=== PATIENT | male | born 1935 | race Caucasian/White ===

== ENCOUNTER 2020-06-08 10:53 | Outpatient (REF) | payer MEDICARE, SELFPAY ==
[2020-06-08 13:46] LABS: MANUAL DIFF FLAG NO
[2020-06-08 14:09] LABS: Basophils Percent Auto 0.7 % (0-2); Eosinophils Absolute Auto 0.3 X10*3/uL (0.0-0.4); Eosinophils Percent Auto 4.6 % (0-4); Hemoglobin 12.4 g/dl (14.0-18.0); Imm Gran Abs Auto 0.02 X10*3/uL (0.00-0.03); Imm Gran Pct Auto 0.3 % (0.0-0.4); Lymphocytes Absolute Auto 1.2 X10*3/uL (1.2-4.9); Lymphocytes Percent Auto 20.2 % (20-40); Mean Corpuscular HGB Conc 30.2 g/dl (31.0-36.0); Mean Corpuscular Hemoglobin 29.5 pg (27.0-33.0); Mean Corpuscular Volume 97.4 fL (80-98); Mean Platelet Volume 9.9 fL (9.4-12.4); Monocytes Absolute Auto 0.5 X10*3/uL (0.1-1.2); Monocytes Percent Auto 8.1 % (2-11); Neutrophils Percent Auto 66.1 % (45-73); Platelet Count 168 X10*3/uL (160-400); Red Blood Count 4.21 X10*6/uL (4.60-5.80)
[2020-06-08 14:16] LABS: Anion Gap 11 (12-20); Blood Urea Nitrogen 25 mg/dL (9-16); Calcium 8.1 mg/dL (8.4-10.2); Chloride 105 mmol/L (96-108); Estimated Glomerular Filt Rate > 60; Glucose Random 142 mg/dL (60-115); Potassium 4.9 mmol/l (3.3-5.1); Sodium 142 mmol/L (135-145)
[2020-06-08 14:20] LABS: Carbon Dioxide 31 mmol/L (22-29)
[2020-06-08 14:40] LABS: Free T4 (Free Thyroxine) 0.93 ng/dL (0.71-1.85)
== END 2020-06-08 10:54 | disposition home or self-care (01) ==
LOC: HO.10HDL 10:53
PROVIDERS: Visit Provider Internal Medicine
DX: D64.9 Anemia, unspecified (principal); E03.9 Hypothyroidism, unspecified; I10 Essential (primary) hypertension
CPT/HCPCS: 36415; 80048; 84439; 84443; 85025

== ENCOUNTER 2020-08-18 09:40 | Outpatient (REF) | payer MEDICARE, SELFPAY ==
[2020-08-18 13:39] LABS: MANUAL DIFF FLAG NO
[2020-08-18 13:49] LABS: Basophils Absolute Auto 0.1 X10*3/uL (0.0-0.2); Basophils Percent Auto 0.8 % (0-2); Eosinophils Absolute Auto 0.8 X10*3/uL (0.0-0.4); Eosinophils Percent Auto 10.4 % (0-4); Hematocrit 40.6 % (42-52); Hemoglobin 12.6 g/dl (14.0-18.0); Imm Gran Abs Auto 0.03 X10*3/uL (0.00-0.03); Imm Gran Pct Auto 0.4 % (0.0-0.4); Lymphocytes Absolute Auto 1.3 X10*3/uL (1.2-4.9); Lymphocytes Percent Auto 17.3 % (20-40); Mean Corpuscular Hemoglobin 30.1 pg (27.0-33.0); Mean Corpuscular Volume 96.9 fL (80-98); Mean Platelet Volume 9.7 fL (9.4-12.4); Monocytes Absolute Auto 0.6 X10*3/uL (0.1-1.2); Monocytes Percent Auto 7.8 % (2-11); Neutrophils Absolute Auto 4.6 X10*3/uL (2.0-8.3); Neutrophils Percent Auto 63.3 % (45-73); Platelet Count 178 X10*3/uL (160-400); Red Blood Count 4.19 X10*6/uL (4.60-5.80); Red Cell Distribution Width 14.5 % (11.0-16.0); White Blood Count 7.3 X10*3/uL (4.8-10.8)
[2020-08-18 14:40] LABS: Alanine Aminotransferase 20 U/L (0-40); Albumin Level 3.8 g/dL (3.5-5.0); Alkaline Phosphatase 83 U/L (39-117); Anion Gap 12 (12-20); Aspartate Amino Transferase 21 U/L (5-37); Bilirubin Total 0.8 mg/dL (0.0-1.0); Blood Urea Nitrogen 31 mg/dL (9-16); Calcium 8.8 mg/dL (8.4-10.2); Carbon Dioxide 30 mmol/L (22-29); Chloride 105 mmol/L (96-108); Estimated Glomerular Filt Rate > 60; Glucose Random 112 mg/dL (60-115); Potassium 4.8 mmol/l (3.3-5.1); Sodium 142 mmol/L (135-145); Total Protein 6.2 g/dL (6.5-8.0)
[2020-08-18 14:53] LABS: Estimated Average Glucose 143 mg/dL; Hemoglobin A1c % 6.6 %
[2020-08-18 15:05] LABS: Creatinine Urine 113.74 mg/dL; Microalbum/Creatinine Ratio Ur 10.5 ug/mg cr
== END 2020-08-18 09:41 | disposition home or self-care (01) ==
LOC: HO.10HDL 09:40
PROVIDERS: Visit Provider Internal Medicine
DX: D50.9 Iron deficiency anemia, unspecified (principal); I25.10 Atherosclerotic heart disease of native coronary artery without angina pectoris; I10 Essential (primary) hypertension; E11.65 Type 2 diabetes mellitus with hyperglycemia; Z79.899 Other long term (current) drug therapy
CPT/HCPCS: 36415; 80053; 82043; 83036; 85025

== ENCOUNTER → 2020-09-08 10:10 | Outpatient (BNVA) | payer MEDICARE, SELFPAY | PROVIDERS: PCP Internal Medicine; Visit Provider Internal Medicine | DX: I48.0 Paroxysmal atrial fibrillation (principal); Z51.81 Encounter for therapeutic drug level monitoring; Z79.01 Long term (current) use of anticoagulants | CPT/HCPCS: 85610; 99211 ==

== ENCOUNTER → 2020-09-15 09:01 | Outpatient (BNVA) | payer MEDICARE, SELFPAY | PROVIDERS: PCP Internal Medicine; Visit Provider Internal Medicine | DX: I48.0 Paroxysmal atrial fibrillation (principal); Z51.81 Encounter for therapeutic drug level monitoring; Z79.01 Long term (current) use of anticoagulants | CPT/HCPCS: 85610; 99211 ==

== ENCOUNTER → 2020-09-23 09:14 | Outpatient (BNVA) | payer MEDICARE, SELFPAY | PROVIDERS: PCP Internal Medicine; Visit Provider Internal Medicine | DX: I48.0 Paroxysmal atrial fibrillation (principal); Z51.81 Encounter for therapeutic drug level monitoring; Z79.01 Long term (current) use of anticoagulants | CPT/HCPCS: 85610; 99211 ==

== ENCOUNTER → 2020-09-29 08:14 | Outpatient (BNVA) | payer MEDICARE, SELFPAY | PROVIDERS: PCP Internal Medicine; Visit Provider Internal Medicine | DX: I48.0 Paroxysmal atrial fibrillation (principal); Z51.81 Encounter for therapeutic drug level monitoring; Z79.01 Long term (current) use of anticoagulants | CPT/HCPCS: 85610; 99211 ==

== ENCOUNTER → 2020-10-06 08:07 | Outpatient (BNVA) | payer MEDICARE, SELFPAY | PROVIDERS: PCP Internal Medicine; Visit Provider Internal Medicine | DX: I48.0 Paroxysmal atrial fibrillation (principal); Z51.81 Encounter for therapeutic drug level monitoring; Z79.01 Long term (current) use of anticoagulants | CPT/HCPCS: 85610; 99211 ==

== ENCOUNTER → 2020-10-20 09:08 | Outpatient (BNVA) | payer MEDICARE, SELFPAY | PROVIDERS: PCP Internal Medicine; Visit Provider Internal Medicine | DX: I48.0 Paroxysmal atrial fibrillation (principal); Z51.81 Encounter for therapeutic drug level monitoring; Z79.01 Long term (current) use of anticoagulants | CPT/HCPCS: 85610; 99211 ==

== ENCOUNTER → 2020-10-23 09:15 | Outpatient (BNVA) | payer MEDICARE, SELFPAY | PROVIDERS: PCP Internal Medicine; Visit Provider Internal Medicine | DX: I48.0 Paroxysmal atrial fibrillation (principal); Z51.81 Encounter for therapeutic drug level monitoring; Z79.01 Long term (current) use of anticoagulants | CPT/HCPCS: 85610; 99211 ==

== ENCOUNTER → 2020-10-27 09:08 | Outpatient (BNVA) | payer MEDICARE, SELFPAY | PROVIDERS: PCP Internal Medicine; Visit Provider Internal Medicine | DX: I48.0 Paroxysmal atrial fibrillation (principal); Z51.81 Encounter for therapeutic drug level monitoring; Z79.01 Long term (current) use of anticoagulants | CPT/HCPCS: 85610; 99211 ==

== ENCOUNTER → 2020-11-10 09:14 | Outpatient (BNVA) | payer MEDICARE, SELFPAY | PROVIDERS: PCP Internal Medicine; Visit Provider Internal Medicine | DX: I48.0 Paroxysmal atrial fibrillation (principal); Z51.81 Encounter for therapeutic drug level monitoring; Z79.01 Long term (current) use of anticoagulants | CPT/HCPCS: 85610; 99211 ==

== ENCOUNTER → 2020-11-17 08:17 | Outpatient (BNVA) | payer MEDICARE, SELFPAY | PROVIDERS: PCP Internal Medicine; Visit Provider Internal Medicine | DX: I48.0 Paroxysmal atrial fibrillation (principal); Z79.01 Long term (current) use of anticoagulants; Z51.81 Encounter for therapeutic drug level monitoring | CPT/HCPCS: 85610; 99211 ==

== ENCOUNTER 2020-11-24 09:43 | Outpatient (REF) | payer MEDICARE, SELFPAY ==
[2020-11-24 10:21] LABS: Basophils Percent Auto 0.6 % (0-2); Eosinophils Absolute Auto 0.3 X10*3/uL (0.0-0.4); Hematocrit 38.8 % (42-52); Imm Gran Abs Auto 0.03 X10*3/uL (0.00-0.03); Imm Gran Pct Auto 0.4 % (0.0-0.4); Lymphocytes Absolute Auto 1.2 X10*3/uL (1.2-4.9); Lymphocytes Percent Auto 18.1 % (20-40); MANUAL DIFF FLAG NO; Mean Corpuscular HGB Conc 30.9 g/dl (31.0-36.0); Mean Platelet Volume 9.3 fL (9.4-12.4); Monocytes Absolute Auto 0.6 X10*3/uL (0.1-1.2); Monocytes Percent Auto 9.4 % (2-11); Neutrophils Absolute Auto 4.6 X10*3/uL (2.0-8.3); Neutrophils Percent Auto 67.5 % (45-73); Platelet Count 191 X10*3/uL (160-400); Red Cell Distribution Width 14.9 % (11.0-16.0); White Blood Count 6.8 X10*3/uL (4.8-10.8)
[2020-11-24 10:34] LABS: Alanine Aminotransferase 21 U/L (0-40); Albumin Level 3.8 g/dL (3.5-5.0); Alkaline Phosphatase 84 U/L (39-117); Anion Gap 12 (12-20); Aspartate Amino Transferase 21 U/L (5-37); Blood Urea Nitrogen 32 mg/dL (9-16); Calcium 8.7 mg/dL (8.4-10.2); Carbon Dioxide 28 mmol/L (22-29); Chloride 106 mmol/L (96-108); Estimated Glomerular Filt Rate > 60; Glucose Random 134 mg/dL (60-115); Potassium 5.1 mmol/L (3.3-5.1); Sodium 141 mmol/L (135-145); Total Protein 6.3 g/dL (6.5-8.0)
[2020-11-24 10:37] LABS: B Type Natriuretic Peptide 149 pg/mL (<100)
[2020-11-24 10:44] LABS: Estimated Average Glucose 140 mg/dL; Hemoglobin A1C 152.2448 umol/L; Hemoglobin A1c % 6.5 %
[2020-11-24 10:58] LABS: Free T4 (Free Thyroxine) 0.87 ng/dL (0.71-1.85)
== END 2020-11-24 09:44 | disposition home or self-care (01) ==
LOC: HO.10HDL 09:43
PROVIDERS: Visit Provider Internal Medicine
DX: E11.9 Type 2 diabetes mellitus without complications (principal); I25.10 Atherosclerotic heart disease of native coronary artery without angina pectoris; E78.00 Pure hypercholesterolemia, unspecified; E03.9 Hypothyroidism, unspecified; R06.00 Dyspnea, unspecified
CPT/HCPCS: 36415; 80053; 83036; 83880; 84439; 84443; 85025

== ENCOUNTER → 2020-12-01 08:06 | Outpatient (BNVA) | payer MEDICARE, SELFPAY | PROVIDERS: PCP Internal Medicine; Visit Provider Internal Medicine | DX: I48.0 Paroxysmal atrial fibrillation (principal); Z51.81 Encounter for therapeutic drug level monitoring; Z79.01 Long term (current) use of anticoagulants | CPT/HCPCS: 85610; 99211 ==

== ENCOUNTER → 2020-12-31 09:05 | Outpatient (BNVA) | payer MEDICARE, SELFPAY | PROVIDERS: PCP Internal Medicine; Visit Provider Internal Medicine | DX: Z45.018 Encounter for adjustment and management of other part of cardiac pacemaker (principal); I25.118 Atherosclerotic heart disease of native coronary artery with other forms of angina pectoris; I48.0 Paroxysmal atrial fibrillation; I35.0 Nonrheumatic aortic (valve) stenosis; I65.23 Occlusion and stenosis of bilateral carotid arteries; Z51.81 Encounter for therapeutic drug level monitoring; Z79.899 Other long term (current) drug therapy | CPT/HCPCS: 85610; 93005; 99202; 99211 ==

== ENCOUNTER 2021-01-06 10:17 | Outpatient (REF) | payer MEDICARE, SELFPAY ==
--- NOTE | ~2021-01-06 | US_ITS ---
EXAMINATION: US EXTRACRANIAL CAROTID DUPLEX, BILATERAL CLINICAL INFORMATION: Occlusion and stenosis of bilateral carotid arteries. COMPARISON: None TECHNIQUE: Real-time ultrasound and Doppler techniques (integrating B-mode 2-D vascular images, Doppler spectral analysis and color-flow Doppler imaging) were utilized to interrogate the extracranial carotid arteries, the vertebral arteries and proximal subclavian arteries bilaterally. The degree of stenosis is determined by criteria similar to NASCET. FINDINGS: Right Side: 1. There is extensive calcified, shadowing atherosclerotic plaque seen in the bifurcation/proximal ICA region. 2. The common carotid artery PSV proximally is 31.4 cm/s and distally 92.7 cm/s. 3. The proximal internal carotid artery velocities are 86.2 cm/s systolic and 14.7 cm/s diastolic. 4. The proximal external carotid artery PSV is 85.6 cm/s. 5. The vertebral artery shows antegrade flow. 6. The subclavian artery waveforms are normal. Left Side: 1. There is extensive calcified, shadowing atherosclerotic plaque seen in the bifurcation/proximal ICA region. 2. The common carotid artery PSV proximally is 63.3 cm/s and distally 88 cm/s. 3. The proximal internal carotid artery velocities are 174 cm/s systolic and 37.3 cm/s diastolic. 4. The proximal external carotid artery PSV is 123 cm/s. 5. The vertebral artery shows antegrade flow. 6. The subclavian artery waveforms are normal. US/US carotid duplex BI IMPRESSION: 1. RIGHT: Minimal, non-hemodynamically significant stenosis of the proximal right internal carotid artery corresponding to a 0-49% stenosis by velocity criteria. 2. LEFT: Moderate, hemodynamically significant stenosis of the proximal left internal carotid artery corresponding to a 50-79% stenosis by velocity criteria. Previously the left would have been categorized as 0-49% stenosis. 3. Bilateral waveforms are blunted, similar to the prior which may be suggestive of more central stenosis.
== END 2021-01-06 10:18 | disposition home or self-care (01) ==
LOC: HO.US 10:17
PROVIDERS: PCP Internal Medicine; Visit Provider Internal Medicine Cardiovascular Disease
DX: I65.23 Occlusion and stenosis of bilateral carotid arteries (principal)
CPT/HCPCS: 93880

== ENCOUNTER → 2021-01-11 07:44 | Outpatient (REF) | payer MEDICARE, SELFPAY ==
--- NOTE | 2021-01-11 07:43 | CA_ITS ---
Transthoracic Echocardiogram Patient (Last, First, Middle): Korey Wilder T Gender: Male Date of : 1935 Age: 85 Procedure Date: 01/11/2021 Procedure Type: Transthoracic Echocardiogram Location: OP Height: 182.88 cm Weight: 104.33 kg BSA: 2.26 m2 Heart Rate: bpm BP: 120 / 60 mmHg Director Clinical Pharmacology: LUCILA Referring MD: Hilario Dao MD Pen Maker: Hilario Dao MD Symptoms: I35.0 - Nonrheumatic aortic (valve) stenosis Study Quality: Fair/contrast ECG Rhythm: Ventriculary paced rhythm Conclusions: - 1. Normal LV systolic function with grade 2 diastolic dysfunction 2. Moderately dilated left atrium 3. Moderate aortic stenosis and mild aortic regurgitation 4. Severe mitral annular calcification 5. Moderately elevated right ventricular systolic pressure 6. No gross pericardial effusion Findings Procedure Information Contrast agent, definity, is being given per protocol without apparent complications. Left Ventricle Normal left ventricular cavity size. There is normal left ventricular wall thickness. The left ventricular systolic function is low normal. The visually estimated ejection fraction is between 50-55%. 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 Spectral Doppler is indicative of a pseudonormal filling pattern. E/E prime ratio is >15, consistent with elevated filling pressures. Evidence suggests grade II (moderate) diastolic dysfunction. Right Ventricle Normal right ventricular cavity size and systolic function. There is a pacemaker wire seen in the right ventricle. Atria The left atrium is moderately dilated. The right atrium is mildly dilated. A pacemaker wire is identified in the right atrium. Aortic Valve There is severe calcification of the aortic valve. There is moderate thickening of the aortic valve with reduced excursion. There is moderate aortic valve stenosis. The peak aortic gradient is 56 mmHg.The mean gradient is 32 mmHg. The aortic valve area is 1.28 cm2. There is mild aortic valve regurgitation. Mitral Valve There is mild anterior and severe posterior mitral leaflet thickening. There is severe mitral annular calcification. There is mild mitral valve regurgitation. There is no mitral valve stenosis. Pulmonic Valve The pulmonic valve was not well visualized. Tricuspid Valve Likely normal tricuspid valve structure and function. There is mild tricuspid valve regurgitation. Mildly elevated right atrial pressure. Moderate pulmonary hypertension is present. Great Vessels All visible segments of the aorta are normal in size. The pulmonary artery was not well visualized. Venous The inferior vena cava is mildly dilated and collapses greater than 50% with inspiration. Pericardium/Pleural There is no evidence of pericardial effusion. Prior Study Comparison No previous study in the last 5 years for comparison Measurements 2D Linear Measurements IVSd: 1.11 0.6-0.9/0.6-1.0 cm LVIDd: 5.08 3.9-5.3/4.2-5.9 cm LVIDd Index: 2.25 2.4-3.2/2.2-3.1 cm/m2 LVIDs: 3.07 2.0-3.6 cm LVPWd: 0.98 0.7-1.1 cm Ao Root: 3.80 2.1-3.5 cm LA Diam: 4.20 2.7-3.8/3.0-4.0 cm LAIDs Index: 1.86 1.5-2.3 cm/m2 LV Mass: 247.17 67-162/88-224 g LV Mass Index: 109.37 43-95/49-115 g/m2 LVOT Diam: 2.10 3.0+(-)1.3 cm Mitral Valve MV Pk E: 1.16 MV PK A: 0.56 MV Decel Time: 356.00 E/A: 2.10 E'Lateral: 6.20 E'Medial: 7.83 E/E' Med: 14.80 E/E' Lat: 18.70 PHT: 104.00 MVA PHT: 2.12 Decel [place]: 3.27 Aortic Valve AoV Pk Audi: 3.73 AoV Mn Audi: 2.70 AoV VTI: 0.95 AoV Pk Grad: 56.00 Aov Mn Grad: 32.00 DONOVAN Cont.VTI: 1.28 AI Pk Audi: 3.55 AI [place]: 1.91 LVOT LVOT Pk Audi: 1.28 LVOT Mn Audi: 0.95 LVOT VTI: 0.35 LVOT Pk Grad: 7.00 LVOT Mn Grad: 4.00 LVOT Diam: 2.10 LVOT Area: 3.46 Diastolic Function MV Pk E: 1.16 MV Pk A: 0.56 E/A: 2.10 E'Medial: 7.83 E/E' Med: 14.80 E' Laterial: 6.20 E/E' Lat: 18.70 Tricuspid Valve TR Pk Audi: 3.41 TR Pk Grad: 47.00 RA Press: 8.00 RVSP: 55.00 Great Vessels Aorta Ao Root-2D: 3.80 2.0-3.7 cm Ao Asc: 3.30 2.1-3.4 cm Ao Arch: 3.50 Updated in Other Vendor System with Status of Final Hilario Dao MD electronically signed on 01/12/2021 4:11:05 PM with status of Final
== END ==
LOC: HO.CARD 07:44
PROVIDERS: Visit Provider Internal Medicine Cardiovascular Disease
DX: I35.0 Nonrheumatic aortic (valve) stenosis (principal); I48.0 Paroxysmal atrial fibrillation; Z51.81 Encounter for therapeutic drug level monitoring; Z79.01 Long term (current) use of anticoagulants
CPT/HCPCS: 85610; 93306; 99211; Q9957

== ENCOUNTER → 2021-01-25 08:33 | Outpatient (BNVA) | payer MEDICARE, SELFPAY | PROVIDERS: PCP Internal Medicine; Visit Provider Internal Medicine | DX: I48.0 Paroxysmal atrial fibrillation (principal); Z51.81 Encounter for therapeutic drug level monitoring; Z79.01 Long term (current) use of anticoagulants | CPT/HCPCS: 85610; 99211 ==

== ENCOUNTER → 2021-02-09 13:06 | Outpatient (BNVA) | payer MEDICARE, SELFPAY | PROVIDERS: PCP Internal Medicine; Visit Provider Surgery Vascular Surgery | DX: I65.23 Occlusion and stenosis of bilateral carotid arteries (principal) | CPT/HCPCS: 99202 ==

== ENCOUNTER → 2021-02-10 09:51 | Outpatient (BNVA) | payer MEDICARE, SELFPAY | PROVIDERS: PCP Internal Medicine; Visit Provider Internal Medicine Cardiovascular Disease | DX: I35.0 Nonrheumatic aortic (valve) stenosis (principal); I20.8 Other forms of angina pectoris; I48.0 Paroxysmal atrial fibrillation; I49.5 Sick sinus syndrome; E11.9 Type 2 diabetes mellitus without complications; Z87.891 Personal history of nicotine dependence; Z95.0 Presence of cardiac pacemaker; Z98.890 Other specified postprocedural states; Z79.84 Long term (current) use of oral hypoglycemic drugs; Z79.899 Other long term (current) drug therapy | CPT/HCPCS: 93005; 99212 ==

== ENCOUNTER 2021-03-01 09:50 | Outpatient (REF) | payer MEDICARE, SELFPAY ==
[2021-03-01 13:16] LABS: MANUAL DIFF FLAG NO
[2021-03-01 13:35] LABS: Basophils Percent Auto 0.5 % (0-2); Eosinophils Absolute Auto 0.2 X10*3/uL (0.0-0.4); Hematocrit 39.2 % (42-52); Hemoglobin 12.1 g/dl (14.0-18.0); Imm Gran Abs Auto 0.03 X10*3/uL (0.00-0.03); Imm Gran Pct Auto 0.4 % (0.0-0.4); Lymphocytes Absolute Auto 1.2 X10*3/uL (1.2-4.9); Lymphocytes Percent Auto 16.5 % (20-40); Mean Corpuscular HGB Conc 30.9 g/dl (31.0-36.0); Mean Corpuscular Hemoglobin 29.7 pg (27.0-33.0); Mean Corpuscular Volume 96.1 fL (80-98); Mean Platelet Volume 9.8 fL (9.4-12.4); Monocytes Absolute Auto 0.7 X10*3/uL (0.1-1.2); Monocytes Percent Auto 9.2 % (2-11); Neutrophils Absolute Auto 5.2 X10*3/uL (2.0-8.3); Neutrophils Percent Auto 70.4 % (45-73); Platelet Count 163 X10*3/uL (160-400); Red Blood Count 4.08 X10*6/uL (4.60-5.80); Red Cell Distribution Width 15.2 % (11.0-16.0); White Blood Count 7.4 X10*3/uL (4.8-10.8)
[2021-03-01 13:45] LABS: Estimated Average Glucose 148 mg/dL; Hemoglobin A1c % 6.8 %
[2021-03-01 13:50] LABS: Alanine Aminotransferase 14 U/L (0-40); Albumin Level 3.8 g/dL (3.5-5.0); Alkaline Phosphatase 85 U/L (39-117); Anion Gap 13 (12-20); Aspartate Amino Transferase 17 U/L (5-37); Blood Urea Nitrogen 27 mg/dL (9-16); Calcium 8.8 mg/dL (8.4-10.2); Carbon Dioxide 29 mmol/L (22-29); Chloride 103 mmol/L (96-108); Estimated Glomerular Filt Rate > 60; Glucose Random 203 mg/dL (60-115); Potassium 5.1 mmol/L (3.3-5.1); Sodium 140 mmol/L (135-145); Total Protein 6.6 g/dL (6.5-8.0)
[2021-03-01 13:54] LABS: Creatinine Urine 88.26 mg/dL; Microalbum/Creatinine Ratio Ur 12.4 ug/mg cr
[2021-03-01 14:12] LABS: Free T4 (Free Thyroxine) 0.91 ng/dL (0.71-1.85); Thyroid Stimulating Hormone 2.46 uIU/mL (0.32-4.0)
== END 2021-03-01 09:51 | disposition home or self-care (01) ==
LOC: HO.10HDL 09:50
PROVIDERS: Visit Provider Internal Medicine
DX: I25.10 Atherosclerotic heart disease of native coronary artery without angina pectoris (principal); I48.0 Paroxysmal atrial fibrillation; E11.9 Type 2 diabetes mellitus without complications; E03.9 Hypothyroidism, unspecified
CPT/HCPCS: 36415; 80053; 82043; 83036; 84439; 84443; 85025

== ENCOUNTER 2021-03-26 09:10 | Outpatient (REF) | payer MEDICARE, SELFPAY ==
[2021-03-26 10:10] LABS: Influenza A PCR NEGATIVE (Negative); Influenza B PCR NEGATIVE (Negative); Resp Syncy Virus RNA Qual PCR NEGATIVE (Negative); SARS COV2 PCR INHOUSE NEGATIVE (Negative)
== END 2021-03-26 09:11 | disposition home or self-care (01) ==
LOC: HO.LNP 09:10
PROVIDERS: Visit Provider Internal Medicine
DX: Z20.822 Contact with and (suspected) exposure to COVID-19 (principal)
CPT/HCPCS: 0241U

== ENCOUNTER → 2021-06-15 15:16 | Outpatient (BNVA) | payer MEDICARE, SELFPAY | PROVIDERS: PCP Internal Medicine; Referring Provider Internal Medicine; Visit Provider Internal Medicine Cardiovascular Disease | DX: Z45.018 Encounter for adjustment and management of other part of cardiac pacemaker (principal); I25.10 Atherosclerotic heart disease of native coronary artery without angina pectoris; I48.0 Paroxysmal atrial fibrillation; I35.0 Nonrheumatic aortic (valve) stenosis; I20.9 Angina pectoris, unspecified | CPT/HCPCS: 93005; 99212 ==

== ENCOUNTER 2021-08-30 13:55 | Outpatient (REF) | payer MEDICARE, SELFPAY ==
[2021-08-03 08:04] VITALS: BP 98/42
[2021-08-20 06:39] VITALS: BP 104/52
--- NOTE | ~2021-08-30 | US_ITS ---
EXAMINATION: US EXTRACRANIAL CAROTID DUPLEX, BILATERAL CLINICAL INFORMATION: This is an 86-year-old male with history of occlusion/stenosis of bilateral carotid arteries. COMPARISON: Comparison is made to a previous carotid duplex ultrasound dated 01/06/2021 which demonstrated 0-49% right internal carotid artery stenosis and 50-79% left internal carotid artery stenosis. TECHNIQUE: Real-time ultrasound and Doppler techniques (integrating B-mode 2-D vascular images, Doppler spectral analysis and color-flow Doppler imaging) were utilized to interrogate the extracranial carotid arteries, the vertebral arteries and proximal subclavian arteries bilaterally. The degree of stenosis is determined by criteria similar to NASCET. FINDINGS: Right Side: 1. There is moderate atherosclerotic plaque seen in the bifurcation/proximal ICA region. 2. The common carotid artery PSV proximally is 35 cm/s and distally 79 cm/s. 3. The proximal internal carotid artery velocities are 224 cm/s systolic and 47 cm/s diastolic. 4. The proximal external carotid artery PSV is 103 cm/s. 5. The vertebral artery shows antegrade flow. 6. The subclavian artery waveforms are normal. Left Side: 1. There is minimal atherosclerotic plaque seen in the bifurcation/proximal ICA region. 2. The common carotid artery PSV proximally is 77 cm/s and distally 74 cm/s. 3. The proximal internal carotid artery velocities are 102 cm/s systolic and 24 cm/s diastolic. 4. The proximal external carotid artery PSV is 81 cm/s. 5. The vertebral artery shows antegrade flow. 6. The subclavian artery waveforms are normal. Arrhythmia was noted during the duplex portion of the examination. US/US carotid duplex BI IMPRESSION: 1. RIGHT: Moderate, hemodynamically significant stenosis of the proximal right internal carotid artery corresponding to a 50-79% stenosis by velocity criteria. On the previous study dated 01/06/2021 the right internal carotid artery stenosis was 0-49%. 2. LEFT: Minimal, non-hemodynamically significant stenosis of the proximal left internal carotid artery corresponding to a 0-49% stenosis by velocity criteria. On the previous study dated 01/06/2021 the left internal carotid artery stenosis was 50-79%.
== END 2021-08-30 13:56 | disposition home or self-care (01) ==
LOC: HO.US 13:55
PROVIDERS: PCP Internal Medicine; Visit Provider Surgery Vascular Surgery
DX: I65.23 Occlusion and stenosis of bilateral carotid arteries (principal)
CPT/HCPCS: 93880

== ENCOUNTER → 2021-09-02 10:34 | Outpatient (BNVA) | payer MEDICARE, SELFPAY ==
[2021-08-20 06:39] VITALS: BP 104/52
== END ==
PROVIDERS: PCP Internal Medicine; Visit Provider Surgery Vascular Surgery
DX: I65.23 Occlusion and stenosis of bilateral carotid arteries (principal); Z79.01 Long term (current) use of anticoagulants; Z79.899 Other long term (current) drug therapy
CPT/HCPCS: 99212

== ENCOUNTER → 2021-11-24 08:16 | Outpatient (REF) | payer MEDICARE, SELFPAY ==
[2021-08-20 06:39] VITALS: BP 104/52
--- NOTE | 2021-11-24 08:20 | CA_ITS ---
Transthoracic Echocardiogram Patient (Last, First, Middle): Korey Wilder T Gender: Male Date of : 1935 Age: 86 Procedure Date: 11/24/2021 Procedure Type: Transthoracic Echocardiogram Location: OP Height: 193.04 cm Weight: 104.33 kg BSA: 2.35 m2 Heart Rate: bpm BP: 122 / 80 mmHg Brake Linings Coater: Referring MD: Hilario Dao MD Solid Plasterer: Hilario Dao MD Symptoms: I35.0 - Nonrheumatic aortic (valve) stenosis Study Quality: Fair ECG Rhythm: Ventriculary paced rhythm Conclusions: - 1. Normal LV systolic function with at least grade 2 diastolic dysfunction next 2. Mildly dilated left atrium 3. Moderate to severe aortic stenosis with mild aortic regurgitation 4. Moderately elevated right ventricular systolic pressure 5. No gross pericardial effusion Findings Procedure Information The patient declines contrast. Left Ventricle Normal left ventricular size, thickness, and systolic function. The visually estimated ejection fraction is between 55-60%. Spectral Doppler is indicative of a pseudonormal filling pattern. Elevated left atrial and left ventricular end-diastolic pressures. E/E prime ratio is >15, consistent with elevated filling pressures. Evidence suggests grade II (moderate) diastolic dysfunction. Right Ventricle Mildly increased right ventricular cavity size. There is normal right ventricular systolic function. There is a pacemaker wire seen in the right ventricle. Atria The left atrium is mildly dilated. There is no evidence of interatrial shunt. The right atrium is normal in size. Aortic Valve There is moderate calcification of the aortic valve. There is moderate thickening of the aortic valve. There is moderate to severe aortic valve stenosis. The peak aortic gradient is 58 mmHg.The mean gradient is 34 mmHg. The aortic valve area is 1.04 cm2. There is mild aortic valve regurgitation. Mitral Valve There is mild anterior and moderate posterior mitral leaflet thickening. There is moderate mitral annular calcification. There is mild mitral valve regurgitation. There is no mitral valve stenosis. Pulmonic Valve The pulmonic valve was not well visualized. Tricuspid Valve Likely normal tricuspid valve structure and function. There is mild tricuspid valve regurgitation. Moderate pulmonary hypertension is present. Great Vessels All visible segments of the aorta are normal in size. The pulmonary artery was not well visualized. Venous The inferior vena cava is normal in size and collapses greater than 50% with inspiration. Pericardium/Pleural There is no evidence of pericardial effusion. Prior Study Comparison Changes noted compared to prior study dated: 01/11/2021. aortic stenosis is worse Measurements 2D Linear Measurements IVSd: 1.15 0.6-0.9/0.6-1.0 cm LVIDd: 5.29 3.9-5.3/4.2-5.9 cm LVIDd Index: 2.25 2.4-3.2/2.2-3.1 cm/m2 LVIDs: 3.10 2.0-3.6 cm LVPWd: 1.08 0.7-1.1 cm LA Diam: 4.70 2.7-3.8/3.0-4.0 cm LAIDs Index: 2.00 1.5-2.3 cm/m2 LV Mass: 288.31 67-162/88-224 g LV Mass Index: 122.69 43-95/49-115 g/m2 LVOT Diam: 2.10 3.0+(-)1.3 cm Mitral Valve E'Lateral: 6.42 E'Medial: 7.94 Aortic Valve AoV Pk Audi: 3.81 AoV Mn Audi: 2.81 AoV VTI: 0.97 AoV Pk Grad: 58.00 Aov Mn Grad: 34.00 DONOVAN Cont.VTI: 1.04 LVOT LVOT Pk Audi: 1.17 LVOT Mn Audi: 0.82 LVOT VTI: 0.29 LVOT Pk Grad: 5.00 LVOT Mn Grad: 3.00 LVOT Diam: 2.10 LVOT Area: 3.46 Diastolic Function E'Medial: 7.94 E' Laterial: 6.42 Right Ventricle TAPSE (mm): 21.40 TVS' Audi: 12.60 Tricuspid Valve TR Pk Audi: 3.33 TR Pk Grad: 44.00 RA Press: 3.00 RVSP: 47.00 Great Vessels Aorta Sinus of Valsalva: 3.47 2.0-3.5 cm Ao Asc: 3.30 2.1-3.4 cm Ao Arch: 3.40 Updated in Other Vendor System with Status of Final Hilario Dao MD electronically signed on 11/24/2021 12:59:14 PM with status of Final
== END ==
LOC: HO.CARD 08:16
PROVIDERS: Visit Provider Internal Medicine Cardiovascular Disease
DX: I35.0 Nonrheumatic aortic (valve) stenosis (principal)
CPT/HCPCS: 93306

== ENCOUNTER → 2021-12-21 10:34 | Outpatient (BNVA) | payer MEDICARE, SELFPAY ==
[2021-08-20 06:39] VITALS: BP 104/52
== END ==
PROVIDERS: PCP Internal Medicine; Referring Provider Internal Medicine; Visit Provider Internal Medicine Cardiovascular Disease
DX: I35.0 Nonrheumatic aortic (valve) stenosis (principal); I25.10 Atherosclerotic heart disease of native coronary artery without angina pectoris; I48.0 Paroxysmal atrial fibrillation
CPT/HCPCS: 99212

== ENCOUNTER 2022-02-25 10:36 | Outpatient (REF) | payer MEDICARE, SELFPAY ==
[2021-08-20 06:39] VITALS: BP 104/52
[2022-02-25 13:35] LABS: MANUAL DIFF FLAG NO
[2022-02-25 13:44] LABS: Appearance Urine CLEAR; Basophils Percent Auto 0.5 % (0-2); Color Urine YELLOW; Eosinophils Absolute Auto 0.2 X10*3/uL (0.0-0.4); Eosinophils Percent Auto 3.7 % (0-4); Glucose Urine UA NEG (NEG); Hematocrit 40.6 % (42.0-52.0); Hemoglobin 12.7 g/dl (14.0-18.0); Imm Gran Abs Auto 0.02 X10*3/uL (0.00-0.03); Imm Gran Pct Auto 0.3 % (0.0-0.4); Leukocyte Esterase Urine NEG (NEG); Lymphocytes Absolute Auto 1.3 X10*3/uL (1.2-4.9); Lymphocytes Percent Auto 21.3 % (20-40); Mean Corpuscular HGB Conc 31.3 g/dl (31.0-36.0); Mean Corpuscular Hemoglobin 30.2 pg (27.0-33.0); Mean Corpuscular Volume 96.4 fL (80.0-98.0); Mean Platelet Volume 9.8 fL (9.4-12.4); Monocytes Absolute Auto 0.6 X10*3/uL (0.1-1.2); Monocytes Percent Auto 9.7 % (2-11); Neutrophils Absolute Auto 3.9 x10*3/uL (2.0-8.3); Neutrophils Percent Auto 64.5 % (45-73); Nitrite Urine NEG (NEG); PH 5.5 (5.0-8.0); Platelet Count 141 X10*3/uL (160-400); Red Blood Count 4.21 X10*6/uL (4.60-5.80); Red Cell Distribution Width 14.5 % (11.0-16.0); Specific Gravity - Urine >= 1.030 (1.005-1.025); Urine Blood NEG (NEG); Urine Ketones NEG (NEG); Urine Protein NEG (NEG-TRACE)
[2022-02-25 14:01] LABS: Estimated Average Glucose 140 mg/dL; Hemoglobin A1c % 6.5 %
[2022-02-25 14:09] LABS: Creatinine Urine 127.04 mg/dL
[2022-02-25 14:12] LABS: Alanine Aminotransferase 14 U/L (0-40); Alkaline Phosphatase 81 U/L (39-117); Anion Gap 12 (12-20); Aspartate Amino Transferase 20 U/L (5-37); Bilirubin Total 0.9 mg/dL (0.0-1.0); Blood Urea Nitrogen 25 mg/dL (9-16); Calcium 8.9 mg/dL (8.4-10.2); Carbon Dioxide 27 mmol/L (22-29); Chloride 106 mmol/L (96-108); Cholesterol 145 mg/dL; Estimated Glomerular Filt Rate > 60; Glucose Fasting 126 mg/dL (60-99); HDL Cholesterol 45 mg/dL; Iron 63 mcg/dL (45-160); LDL Cholesterol Calculated 86 mg/dl; Percent Iron Saturation 25 % (15-50); Sodium 140 mmol/L (135-145); Total Iron Binding Capacity 254 mcg/dL (228-428); Total Protein 6.7 g/dL (6.5-8.0); Triglycerides 70 mg/dL; Unsaturated Iron Binding 191 ug/dL
[2022-02-25 14:26] LABS: Free T4 (Free Thyroxine) 0.93 ng/dL (0.71-1.85)
== END 2022-02-25 10:37 | disposition home or self-care (01) ==
LOC: HO.10HDL 10:36
PROVIDERS: Visit Provider Internal Medicine
DX: I25.10 Atherosclerotic heart disease of native coronary artery without angina pectoris (principal); I73.9 Peripheral vascular disease, unspecified; E78.00 Pure hypercholesterolemia, unspecified; E03.9 Hypothyroidism, unspecified; E11.9 Type 2 diabetes mellitus without complications; R35.1 Nocturia; Z12.5 Encounter for screening for malignant neoplasm of prostate
CPT/HCPCS: 36415; 80053; 80061; 81003; 82043; 83036; 83540; 84153; 84439; 84443; 85025

== ENCOUNTER → 2022-06-07 09:19 | Outpatient (REF) | payer MEDICARE, SELFPAY ==
[2021-08-20 06:39] VITALS: BP 104/52
--- NOTE | 2022-06-07 09:23 | CA_ITS ---
Transthoracic Echocardiogram Patient (Last, First, Middle): Korey Wilder T Gender: Male Date of : 1935 Age: 87 Procedure Date: 06/07/2022 Procedure Type: Transthoracic Echocardiogram Location: OP Height: 182.88 cm Weight: 102.06 kg BSA: 2.24 m2 Heart Rate: bpm BP: 120 / 54 mmHg Director Data Architecture: CARLOS Referring MD: Hilario Dao MD Symptoms: I35.0 - Nonrheumatic aortic (valve) stenosis Study Quality: Technically Difficult ECG Rhythm: Ventriculary paced rhythm Conclusions: - The left ventricular systolic function is normal. The visually estimated ejection fraction is between 60-65%. - Evidence suggests grade III (severe) diastolic dysfunction. - The left atrium is moderately dilated. - There is severe aortic valve stenosis. - There is severe mitral annular calcification. There is mild mitral valve regurgitation. There is mild mitral valve stenosis. - There is mild to moderate tricuspid valve regurgitation. - Mild pulmonary hypertension is present. Findings Procedure Information The patient declines contrast. Left Ventricle Normal left ventricular cavity size. There is mildly increased left ventricular wall thickness. The left ventricular systolic function is normal. The visually estimated ejection fraction is between 60-65%. There is no evidence of regional wall motion abnormalities. E/E prime ratio is >15, consistent with elevated filling pressures. Evidence suggests grade III (severe) diastolic dysfunction. Right Ventricle Normal right ventricular cavity size and systolic function. Atria The left atrium is moderately dilated. The right atrium is normal in size. Aortic Valve There is severe calcification of the aortic valve. There is severe aortic valve stenosis. The peak aortic gradient is 65 mmHg.The mean gradient is 42 mmHg. The aortic valve area is 1.03 cm2. There is mild aortic valve regurgitation. Mitral Valve There is severe mitral annular calcification. There is mild mitral valve regurgitation. There is mild mitral valve stenosis. Pulmonic Valve The pulmonic valve is likely normal. Tricuspid Valve Normal tricuspid valve structure. There is mild to moderate tricuspid valve regurgitation. The right ventricular systolic pressure is 48 mmHg. Mild pulmonary hypertension is present. Great Vessels The asc aorta is normal in size. Venous The inferior vena cava is mildly dilated and collapses less than 50% with inspiration. Pericardium/Pleural There is no evidence of pericardial effusion. Prior Study Comparison Changes noted compared to prior study dated: 11/24/2021. Progression of aortic valve stenosis. Measurements 2D Linear Measurements IVSd: 1.23 0.6-0.9/0.6-1.0 cm LVIDd: 5.23 3.9-5.3/4.2-5.9 cm LVIDd Index: 2.33 2.4-3.2/2.2-3.1 cm/m2 LVIDs: 2.84 2.0-3.6 cm LVPWd: 1.20 0.7-1.1 cm LA Diam: 4.50 2.7-3.8/3.0-4.0 cm LAIDs Index: 2.01 1.5-2.3 cm/m2 LV Mass: 318.66 67-162/88-224 g LV Mass Index: 142.26 43-95/49-115 g/m2 LVOT Diam: 2.10 3.0+(-)1.3 cm Mitral Valve MV VTI: 0.39 MV Pk Audi: 1.35 MV Mn Audi: 0.70 MV Pk Grad: 7.00 MV Mn Grad: 2.00 MV Pk E: 1.18 MV PK A: 0.33 MV Decel Time: 212.00 E/A: 3.50 E'Lateral: 6.64 E'Medial: 7.62 E/E' Med: 15.50 E/E' Lat: 17.80 PHT: 62.00 MVA PHT: 3.55 MVA Continuity: 2.81 Decel Rice: 5.54 Aortic Valve AoV Pk Audi: 4.03 AoV Mn Audi: 3.08 AoV VTI: 1.08 AoV Pk Grad: 65.00 Aov Mn Grad: 42.00 DONOVAN Cont.VTI: 1.03 AI Pk Audi: 3.45 AI Rice: 2.10 LVOT LVOT Pk Audi: 1.30 LVOT Mn Audi: 0.85 LVOT VTI: 0.32 LVOT Pk Grad: 7.00 LVOT Mn Grad: 4.00 LVOT Diam: 2.10 LVOT Area: 3.46 Diastolic Function MV Pk E: 1.18 MV Pk A: 0.33 E/A: 3.50 E'Medial: 7.62 E/E' Med: 15.50 E' Laterial: 6.64 E/E' Lat: 17.80 Right Ventricle TAPSE (mm): 21.40 TVS' Audi: 9.57 Tricuspid Valve TR Pk Audi: 3.17 TR Pk Grad: 40.00 RA Press: 8.00 RVSP: 48.00 Great Vessels Aorta Sinus of Valsalva: 3.81 2.0-3.[address] [place]: 2.74 1.7-3.4 cm Ao Asc: 3.70 2.1-3.4 cm Updated in Other Vendor System with Status of Final Obdulio Graham MD electronically signed on 06/08/2022 11:45:19 AM with status of Final
== END ==
LOC: HO.CARD 09:19
PROVIDERS: PCP Internal Medicine; Visit Provider Internal Medicine Cardiovascular Disease
DX: I35.0 Nonrheumatic aortic (valve) stenosis (principal)
CPT/HCPCS: 93306

== ENCOUNTER → 2022-07-05 10:54 | Outpatient (BNVA) | payer MEDICARE, SELFPAY ==
[2021-08-20 06:39] VITALS: BP 104/52
== END ==
PROVIDERS: PCP Internal Medicine; Referring Provider Internal Medicine; Visit Provider Internal Medicine Cardiovascular Disease
DX: Z45.018 Encounter for adjustment and management of other part of cardiac pacemaker (principal); I35.0 Nonrheumatic aortic (valve) stenosis; I48.0 Paroxysmal atrial fibrillation; I25.10 Atherosclerotic heart disease of native coronary artery without angina pectoris
CPT/HCPCS: 93005; 93280; 99212

== ENCOUNTER 2022-08-19 12:53 | Outpatient (REF) | payer MEDICARE, SELFPAY ==
[2021-08-20 06:39] VITALS: BP 104/52
[2022-08-19 13:38] LABS: MANUAL DIFF FLAG NO
[2022-08-19 13:42] LABS: Basophils Absolute Auto 0.1 X10*3/uL (0.0-0.2); Basophils Percent Auto 0.8 % (0-2); Eosinophils Absolute Auto 0.2 X10*3/uL (0.0-0.4); Hematocrit 40.5 % (42.0-52.0); Hemoglobin 12.9 g/dl (14.0-18.0); Imm Gran Abs Auto 0.03 X10*3/uL (0.00-0.03); Imm Gran Pct Auto 0.5 % (0.0-0.4); Lymphocytes Absolute Auto 1.4 X10*3/uL (1.2-4.9); Lymphocytes Percent Auto 21.7 % (20-40); Mean Corpuscular HGB Conc 31.9 g/dl (31.0-36.0); Mean Corpuscular Hemoglobin 31.6 pg (27.0-33.0); Mean Corpuscular Volume 99.3 fL (80.0-98.0); Mean Platelet Volume 9.7 fL (9.4-12.4); Monocytes Absolute Auto 0.5 X10*3/uL (0.1-1.2); Neutrophils Absolute Auto 4.4 x10*3/uL (2.0-8.3); Platelet Count 160 X10*3/uL (160-400); Red Blood Count 4.08 X10*6/uL (4.60-5.80); Red Cell Distribution Width 14.4 % (11.0-16.0); White Blood Count 6.6 X10*3/uL (4.8-10.8)
[2022-08-19 13:55] LABS: Estimated Average Glucose 131 mg/dL; Hemoglobin A1c % 6.2 %
[2022-08-19 14:10] LABS: Alanine Aminotransferase 20 U/L (0-40); Albumin Level 3.8 g/dL (3.5-5.0); Alkaline Phosphatase 86 U/L (39-117); Anion Gap 13 (12-20); Aspartate Amino Transferase 24 U/L (5-37); Blood Urea Nitrogen 27 mg/dL (9-16); Calcium 8.9 mg/dL (8.4-10.2); Carbon Dioxide 30 mmol/L (22-29); Chloride 104 mmol/L (96-108); Estimated Glomerular Filt Rate > 60; Glucose Random 166 mg/dL (60-115); Potassium 4.6 mmol/L (3.3-5.1); Sodium 142 mmol/L (135-145); Total Protein 6.4 g/dL (6.5-8.0)
[2022-08-19 14:16] LABS: Free T4 (Free Thyroxine) 1.09 ng/dL (0.71-1.85); Thyroid Stimulating Hormone 2.76 uIU/mL (0.32-4.0)
[2022-08-19 14:25] LABS: Creatinine Urine 117.23 mg/dL; Microalbum/Creatinine Ratio Ur 18.7 ug/mg cr
== END 2022-08-19 12:54 | disposition home or self-care (01) ==
LOC: HO.10HDL 12:53
PROVIDERS: Visit Provider Internal Medicine
DX: I48.0 Paroxysmal atrial fibrillation (principal); I73.9 Peripheral vascular disease, unspecified; E11.9 Type 2 diabetes mellitus without complications; I25.10 Atherosclerotic heart disease of native coronary artery without angina pectoris; E03.9 Hypothyroidism, unspecified
CPT/HCPCS: 36415; 80053; 82043; 83036; 84439; 84443; 85025

== ENCOUNTER 2022-08-25 10:00 | Outpatient (RCR) | payer MEDICARE, SELFPAY ==
[2021-08-20 06:39] VITALS: BP 104/52
--- NOTE | 2022-07-20 15:56 | MHC.PT.EP ---
[facility] [place] [facility] [place] [facility] [place] [facility] [address] [place] [address] [phone] F: [phone] F: [phone] F: [phone] F: [phone] Physical Therapy Plan of Care Date of Evaluation: Date of Surgery: N/A Diagnosis: sacroilitis, R SI joint dysfunction (RC) Assessment: pt is a 87 y/o male presenting to physical therapy w/ referring diagnosis of sacroilitis, R SI joint dysfunction. Impairments include pain, decreased range of motion, decreased strength, impaired functional mobility, impaired postural awareness, and altered ambulation mechanics. pt is a good candidate for skilled PT due to age, potential remediation of impairments, typyical disease/condition progression and prognosis, comorbidities, and motivation. pt would benefit from skilled PT intervention to provide a tailored strengthening and stretching exercise program, functional training, gait training, postural re-training, neuromuscular re-education, modalities as needed for pain, equipment safety demonstration. Frequency and Duration: The patient will be seen 2x/wk for 6 wks Short Term Goals: pt will be I w/ HEP to promote self-management of condition. pt will improve B hip abduction by 1 MMT grade to promote reduced trunk lean w/ gait and standing. pt will demo proper cane sequencing in appropriate hand to promote improved stability w/ ambulation. Halfway Goals: pt will report a statistically significant improvement in self-reported outcome measure to promote return to PLOF. pt will improve B hip flexion strength by 1 MMT grade to promote ease in navigating stairs to access laundry. Treatment Plan: Modalities to reduce pain, spasms and effusion. Manual therapy to restore motion and function. Therapeutic exercise to improve strength and flexibility. Neuromuscular re-education for posture and balance. Therapeutic activities to return to functional activities of daily living. Electronically signed by: Silvia Luong PT, DPT Please sign and return to therapist. Thank you for your referral.
--- NOTE | 2022-07-20 15:57 | MHC.PT.EP ---
[facility] [place] [facility] [place] [facility] [place] [facility] [address] [place] [address] [phone] F: [phone] F: [phone] F: [phone] F: [phone] Physical Therapy Plan of Care Date of Evaluation: Date of Surgery: N/A Diagnosis: sacroilitis, R SI joint dysfunction (RC) Assessment: pt is a 87 y/o male presenting to physical therapy w/ referring diagnosis of sacroilitis, R SI joint dysfunction. Impairments include pain, decreased range of motion, decreased strength, impaired functional mobility, impaired postural awareness, and altered ambulation mechanics. pt is a good candidate for skilled PT due to age, potential remediation of impairments, typyical disease/condition progression and prognosis, comorbidities, and motivation. pt would benefit from skilled PT intervention to provide a tailored strengthening and stretching exercise program, functional training, gait training, postural re-training, neuromuscular re-education, modalities as needed for pain, equipment safety demonstration. Frequency and Duration: The patient will be seen 2x/wk for 6 wks Short Term Goals: pt will be I w/ HEP to promote self-management of condition. pt will improve B hip abduction by 1 MMT grade to promote reduced trunk lean w/ gait and standing. pt will demo proper cane sequencing in appropriate hand to promote improved stability w/ ambulation. Custodial Goals: pt will report a statistically significant improvement in self-reported outcome measure to promote return to PLOF. pt will improve B hip flexion strength by 1 MMT grade to promote ease in navigating stairs to access laundry. Treatment Plan: Modalities to reduce pain, spasms and effusion. Manual therapy to restore motion and function. Therapeutic exercise to improve strength and flexibility. Neuromuscular re-education for posture and balance. Therapeutic activities to return to functional activities of daily living. Electronically signed by: Silvia Luong PT, DPT Please sign and return to therapist. Thank you for your referral.
--- NOTE | 2022-10-03 10:50 | MHC.PT.DC ---
[facility] [place] Office [place] Office [place] Office [address] [place] [address] [phone] F: [phone] F: [phone] F: [phone] F: [phone] Physical Therapy Discharge Report Diagnosis: sacroilitis, R SI joint dysfunction (RC) Date of Surgery: N/A Date of Evaluation: 07/20/22 Date of Discharge: 10/03/22 Treatments to Date: 10 Cancellations to Date: 0 No Shows to Date: 1 Discharge Status: Recommend MD Follow-up Discharge Summary: The patient was reporting mild improvement in his back pain symptoms; however, was put on hold as he was having a cardiac catheterization procedure done. 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 I followed up with him approximately a week and a half ago and he was still waiting for clearance. Unfortunately, I cannot keep his chart open any longer at this time. If he would like to return he can obtain a new script to resume treatment for his back. Electronically signed by: Silvia Luong PT, DPT Please sign and return to therapist. Thank you for your referral.
== END 2022-10-03 10:50 | disposition home or self-care (01) ==
LOC: HO.PT 10:00
PROVIDERS: PCP Internal Medicine; Visit Provider Internal Medicine
DX: M46.1 Sacroiliitis, not elsewhere classified (principal)
CPT/HCPCS: 97110; 97150; 97162; 97530

== ENCOUNTER → 2022-09-22 13:08 | Outpatient (BNVA) | payer MEDICARE, SELFPAY ==
[2021-08-20 06:39] VITALS: BP 104/52
== END ==
PROVIDERS: PCP Internal Medicine; Referring Provider Internal Medicine; Visit Provider Internal Medicine Cardiovascular Disease
DX: I35.0 Nonrheumatic aortic (valve) stenosis (principal); I48.0 Paroxysmal atrial fibrillation; I25.10 Atherosclerotic heart disease of native coronary artery without angina pectoris; Z79.01 Long term (current) use of anticoagulants; Z45.018 Encounter for adjustment and management of other part of cardiac pacemaker
CPT/HCPCS: 93280; 99212

== ENCOUNTER → 2022-09-23 09:22 | Outpatient (BNVA) | payer MEDICARE, SELFPAY ==
[2021-08-20 06:39] VITALS: BP 104/52
== END ==
PROVIDERS: PCP Internal Medicine; Visit Provider Surgery
DX: Z95.0 Presence of cardiac pacemaker (principal)
CPT/HCPCS: Q3014

== ENCOUNTER 2022-10-06 12:09 | Day surgery (SDC) | payer MEDICARE, SELFPAY ==
[2021-08-20 06:39] VITALS: BP 104/52
[2022-10-03 14:03] VITALS: BMI 31.3
--- NOTE | 2022-10-05 11:17 | P.CONAN_ITS ---
Documented by User: Bing Bertrand NP 10/05/22 11:21 HPI - Anesthesia Eval Consult details Narrative: 87yo M for Dual Pacemaker Generator Change pending TAVR in ~4-6 weeks Eliquis for PAF PMFSH Active Problems Active Problems: All Active Problems (Updated 02/09/21 @ 14:34 by Werner Larry MD) Bilateral carotid artery stenosis (Acute) Atherosclerosis of both carotid arteries (Acute) Aortic stenosis (Acute) Exertional angina (Acute) Paroxysmal atrial fibrillation (Acute) Diabetes mellitus (Acute) HTN (hypertension) (Acute) Cardiac pacemaker in situ (Acute) CAD (coronary artery disease) (Acute) Current use of anticoagulant therapy (Acute) Past Medical History Medical History (Updated 10/06/22 @ 09:21 by Hodan Main PA-C) Aortic stenosis Atherosclerosis of both carotid arteries CAD (coronary artery disease) Cardiac pacemaker in situ (~2013) Diabetes mellitus Exertional angina HTN (hypertension) Paroxysmal atrial fibrillation Sick sinus syndrome (~2013) Tubular adenoma of colon Family History Family History (Updated 10/06/22 @ 09:20 by Hodan Main PA-C) Father No problems noted. Mother Lung cancer Surgical History Surgical History (Updated 10/06/22 @ 09:19 by Hodan Main PA-C) History of appendectomy History of cardiac cath (~2017) History of cardioversion (~2014) History of cataract surgery History of colonoscopy (~2010) History of left hip replacement (~1998) History of melanoma excision (~2011) History of pacemaker (~2013) History of right hip replacement History of right-sided carotid endarterectomy (~2000) History of tonsillectomy Social History Social History (Updated 10/06/22 @ 09:16 by Hodan Main PA-C) Patient Tobacco Use Status: Former Tobacco user Quit Date: 2009 Tobacco use type: Cigarette Cigarette Packs Per Day: 1 Years Smoked: 50 Advance Directives: No Advance Directives Information Provided: Yes Meds Allergies Allergy/AdvReac Type Severity Reaction Status Date / Time No Known Allergies Allergy Verified 09/23/22 09:56 [No Known Allergies*] Home Medications Medication Instructions Recorded Confirmed Last Taken Type atorvastatin 40 mg tablet 40 mg PO DAILY 12/31/20 10/03/22 Unknown History glipizide 2.5 mg tablet, extended 2.5 mg PO DAILY 12/31/20 10/03/22 Unknown History release 24 hr levothyroxine 50 mcg tablet 50 mcg PO DAILY 12/31/20 10/03/22 Unknown History nitroglycerin 0.4 mg sublingual 0.4 mg sublingual TID PRN angina 12/31/20 09/23/22 Unknown History tablet ezetimibe 10 mg tablet (Zetia) 10 mg PO DAILY 07/05/22 09/23/22 Unknown History Exam Exam Date and Time: October 05, 2022 1117 Height,Weight and Vital Signs: Height 6 ft Weight 104.78 kg Pertinent Lab Results Pertinent Lab Results: Laboratory Tests 08/19/22 08/19/22 13:00 13:00 WBC 6.6 Hgb 12.9 L Hct 40.5 L Plt Count 160 Sodium 142 Potassium 4.6 Chloride 104 Carbon Dioxide 30 H BUN 27 H Creatinine 0.99 Narrative Narrative: Cardiac Device Check 09/2022 Details: Dual-chamber [employer] Chris pacemaker in place, programmed in DDDR at 60 beats per minute.? Battery life is at ISREAL.? Atrial ventricular sensing is adequate.? No ventricular arrhythmias noted.? Atrial ventricular pacing greater than 99% time.? Atrial pacing thresholds were reprogrammed to enhance safety.? Ventricular pacing thresholds are adequate and in our capture mode.? Pacing lead impedance is stable EKG 06/2022 Details: ? AV dual paced rhythm ECHO 06/2022 Conclusions: - The left ventricular systolic function is normal.? The visually estimated ejection fraction is between 60-65%. ? - Evidence suggests grade III (severe) diastolic dysfunction.? ? - The left atrium is moderately dilated. ? - There is severe aortic valve stenosis. ? - There is severe mitral annular calcification.? There is mild ? mitral valve regurgitation.? There is mild mitral valve stenosis. - There is mild to moderate tricuspid valve regurgitation. ? ? ? - Mild pulmonary hypertension is present.? Assessment and Plan Assessment Anesthesia Assessment: Chart Reviewed Documented by User: Alea Foster MD 10/06/22 13:12 [facility] Past Medical History Medical History (Updated 10/06/22 @ 09:21 by Hodan Main PA-C) Aortic stenosis Atherosclerosis of both carotid arteries CAD (coronary artery disease) Cardiac pacemaker in situ (~2013) Diabetes mellitus Exertional angina HTN (hypertension) Paroxysmal atrial fibrillation Sick sinus syndrome (~2013) Tubular adenoma of colon Family History Family History (Updated 10/06/22 @ 09:20 by Hodan Main PA-C) Father No problems noted. Mother Lung cancer Surgical History Surgical History (Updated 10/06/22 @ 09:19 by Hodan Main PA-C) History of appendectomy History of cardiac cath (~2017) History of cardioversion (~2014) History of cataract surgery History of colonoscopy (~2010) History of left hip replacement (~1998) History of melanoma excision (~2011) History of pacemaker (~2013) History of right hip replacement History of right-sided carotid endarterectomy (~2000) History of tonsillectomy Social History Social History (Updated 10/06/22 @ 09:16 by Hodan Main PA-C) Patient Tobacco Use Status: Former Tobacco user Quit Date: 2009 Tobacco use type: Cigarette Cigarette Packs Per Day: 1 Years Smoked: 50 Advance Directives: No Advance Directives Information Provided: Yes Meds Allergies Allergy/AdvReac Type Severity Reaction Status Date / Time No Known Allergies Allergy Verified 09/23/22 09:56 [No Known Allergies*] Home Medications Medication Instructions Recorded Confirmed Last Taken Type atorvastatin 40 mg tablet 40 mg PO DAILY 12/31/20 10/03/22 Unknown History glipizide 2.5 mg tablet, extended 2.5 mg PO DAILY 12/31/20 10/03/22 Unknown History release 24 hr levothyroxine 50 mcg tablet 50 mcg PO DAILY 12/31/20 10/03/22 Unknown History nitroglycerin 0.4 mg sublingual 0.4 mg sublingual TID PRN angina 12/31/20 09/23/22 Unknown History tablet ezetimibe 10 mg tablet (Zetia) 10 mg PO DAILY 07/05/22 09/23/22 Unknown History Exam Narrative Narrative: Cardiac Device Check 09/2022 Details: Dual-chamber [employer] Chris pacemaker in place, programmed in DDDR at 60 beats per minute.? Battery life is at ISREAL.? Atrial ventricular sensing is adequate.? No ventricular arrhythmias noted.? Atrial ventricular pacing greater than 99% time.? Atrial pacing thresholds were reprogrammed to enhance safety.? Ventricular pacing thresholds are adequate and in our capture mode.? Pacing lead impedance is stable EKG 06/2022 Details: ? AV dual paced rhythm ECHO 06/2022 Conclusions: - The left ventricular systolic function is normal.? The visually estimated ejection fraction is between 60-65%. ? - Evidence suggests grade III (severe) diastolic dysfunction.? ? - The left atrium is moderately dilated. ? - There is severe aortic valve stenosis. ? - There is severe mitral annular calcification.? There is mild ? mitral valve regurgitation.? There is mild mitral valve stenosis. - There is mild to moderate tricuspid valve regurgitation. ? - Mild pulmonary hypertension is present.?
--- NOTE | 2022-10-06 12:57 | MHC.SHP ---
Pre-Procedural Eval Section A Date of Service: 10/06/22 The History & Physical has been completed within 30 days and I have reviewed it.: Yes Section B Chief Complaint: Paroxysmal atrial fibrillation,aortic stenosis Allergies: Allergies Allergy/AdvReac Type Severity Reaction Status Date / Time No Known Allergies Allergy Verified 09/23/22 09:56 [No Known Allergies*] Plan I have reviewed the history and physical and performed a pertinent physical examination on my patient. No changes have occurred unless specified.I discussed the risks, benefits, and alternatives of a dual pacemaker generator change which he understood and agreed to proceed. Time Spent With Patient Time: Total time managing care of this patient today ____ minutes.
[2022-10-06 13:07] LABS: Glucose, Whole Blood 132 mg/dL (60-115)
[2022-10-06 13:24] VITALS: BP 133/59; PULSE 60; RESP 18; TEMP 36.4; O2SAT 97
[2022-10-06] MEDS: Lactated Ringers 1,000 ML 50 ML IVCONT (13:25)
--- NOTE | 2022-10-06 14:27 | P.OP_ITS ---
Operative Note Operative Note Date of Service: 10/06/22 Narrative: Preoperative diagnosis: Pacemaker end of life Postoperative diagnosis: Same Operation: Dual-chamber pacemaker generator change Surgeon: Denise Mendoza MD Anesthesia: Local with sedation Specimens: None EBL: Minimal Operative findings: The generator were removed was a [employer] Chris with serial number [id number]. Pacemaker lead parameters were in the atrial lead threshold of 0.5 at 0.4 milliseconds with an impedance of 440 Ohms and a P-wave of 1.4 mV. In the ventricular lead threshold of 1.25 volts at 0.4 milliseconds with an impedance of 840 Ohms. Patient tolerated the procedure well. Operation in detail: The patient was brought the operating room, placed supine on the operative table, anesthesia monitoring devices were placed, and the patient was gently sedated. The left infraclavicular area was then prepped and draped in a standard sterile fashion and a time-out was performed confirming the correct patient, site, and procedure. After injection of local anesthetic, a 3 cm incision was made directly over the old pacemaker generator which was palpable. This was carried down with combination of sharp dissection and minimal electrocautery to open up the capsule at the generator was within. The generator was were then removed from its pocket and the leads were taken out of the receptacles and placed directly into the new generator. These leads were then tested and were working approp riately. The pocket was then copiously irrigated with antibiotic solution and the excess wire and generator were then placed back into the pocket. The wound was then closed with a deep running 3-0 Vicryl suture followed by running 3-0 Vicryl suture and Dermabond glue on the skin. Patient tolerated the procedure well. Patient was then awoken from anesthesia and brought to the recovery room in s table condition.
[2022-10-06 14:31] VITALS: BP 107/51; PULSE 60; RESP 12; TEMP 36.2; O2SAT 96
[2022-10-06 14:46] VITALS: BP 137/57; PULSE 60; RESP 14; TEMP 36.4; O2SAT 96
== END 2022-10-06 15:31 | disposition home or self-care (01) ==
PROVIDERS: PCP Internal Medicine; Visit Provider Surgery
PROC: (CPT 33228; principal; 2022-10-06 13:30)
DX: Z45.010 Encounter for checking and testing of cardiac pacemaker pulse generator [battery] (principal); I35.0 Nonrheumatic aortic (valve) stenosis; I48.0 Paroxysmal atrial fibrillation; I49.5 Sick sinus syndrome; I10 Essential (primary) hypertension; E11.9 Type 2 diabetes mellitus without complications; Z79.84 Long term (current) use of oral hypoglycemic drugs; Z79.01 Long term (current) use of anticoagulants; Z79.899 Other long term (current) drug therapy; Z87.891 Personal history of nicotine dependence
CPT/HCPCS: 33228; 82947; C1785; J0690; J2370; J2405; J3370

== ENCOUNTER → 2022-10-21 09:04 | Outpatient (BNVA) | payer MEDICARE, SELFPAY ==
[2021-08-20 06:39] VITALS: BP 104/52
== END ==
PROVIDERS: PCP Internal Medicine; Visit Provider Surgery
DX: Z95.0 Presence of cardiac pacemaker (principal)

== ENCOUNTER 2022-11-11 14:17 | Outpatient (REF) | payer MEDICARE, SELFPAY ==
[2021-08-20 06:39] VITALS: BP 104/52
[2022-11-11 15:22] LABS: Anion Gap 14 (12-20); B Type Natriuretic Peptide 368 pg/mL (<100); Blood Urea Nitrogen 26 mg/dL (9-16); Carbon Dioxide 29 mmol/L (22-29); Chloride 106 mmol/L (96-108); Estimated Glomerular Filt Rate > 60; Glucose Random 148 mg/dL (60-115); Potassium 4.6 mmol/L (3.3-5.1); Sodium 144 mmol/L (135-145)
== END 2022-11-11 14:18 | disposition home or self-care (01) ==
LOC: HO.LAB 14:17
PROVIDERS: PCP Internal Medicine; Visit Provider Internal Medicine Cardiovascular Disease
DX: I35.0 Nonrheumatic aortic (valve) stenosis (principal)
CPT/HCPCS: 36415; 80048; 83880

== ENCOUNTER 2022-11-18 12:27 | Outpatient (REF) | payer MEDICARE, SELFPAY ==
[2021-08-20 06:39] VITALS: BP 104/52
[2022-11-18 14:20] LABS: B Type Natriuretic Peptide 294 pg/mL (<100)
[2022-11-18 14:31] LABS: Anion Gap 16 (12-20); Blood Urea Nitrogen 30 mg/dL (9-16); Calcium 9.5 mg/dL (8.4-10.2); Carbon Dioxide 30 mmol/L (22-29); Chloride 104 mmol/L (96-108); Estimated Glomerular Filt Rate 58; Glucose Random 132 mg/dL (60-115); Potassium 4.8 mmol/L (3.3-5.1); Sodium 145 mmol/L (135-145)
== END 2022-11-18 12:28 | disposition home or self-care (01) ==
LOC: HO.LAB 12:27
PROVIDERS: Nurse Practitioner Family; PCP Internal Medicine; Visit Provider Internal Medicine Cardiovascular Disease
DX: R60.9 Edema, unspecified (principal)
CPT/HCPCS: 36415; 80048; 83880

== ENCOUNTER → 2022-11-25 12:41 | Outpatient (REF) | payer MEDICARE, SELFPAY ==
[2021-08-20 06:39] VITALS: BP 104/52
--- NOTE | 2022-11-25 12:45 | CA_ITS ---
Transthoracic Echocardiogram Patient (Last, First, Middle): Korey Wilder T Gender: Male Date of : 1935 Age: 87 Procedure Date: 11/25/2022 Procedure Type: Transthoracic Echocardiogram Location: OP Height: 177.8 cm Weight: 99.79 kg BSA: 2.17 m2 Heart Rate: 60 bpm BP: 102 / 58 mmHg [employer]ire Vulcanizer: SB Referring MD: Hilario Dao MD Symptoms: Z95.2 - Presence of prosthetic heart valve Study Quality: Fair but adequate ECG Rhythm: Ventriculary paced rhythm Conclusions: - The left ventricular systolic function is normal. The calculated ejection fraction is 59% by biplane method. - Evidence suggests grade III (severe) diastolic dysfunction. - Moderate biatrial enlargement. - A bioprosthetic aortic valve is present. The prosthetic aortic valve appears to be functioning normally. - There is severe mitral annular calcification. - There is mild to moderate tricuspid valve regurgitation. Findings Procedure Information The patient declines contrast. Left Ventricle Normal left ventricular cavity size. The left ventricular systolic function is normal. The calculated ejection fraction is 59% by biplane method. There is no evidence of regional wall motion abnormalities. Evidence suggests grade III (severe) diastolic dysfunction. There is mild septal asymmetric hypertrophy. Right Ventricle Mildly increased right ventricular cavity size. There is normal right ventricular systolic function. Atria Moderate biatrial enlargement. Aortic Valve A bioprosthetic aortic valve is present. The prosthetic aortic valve appears to be functioning normally. The aortic valve was not well visualized. No significant regurgitation. Mitral Valve There is severe mitral annular calcification. There is trace mitral valve regurgitation. Possible mitral stenosis (not adequately assessed). Pulmonic Valve The pulmonic valve is likely normal. Tricuspid Valve Normal tricuspid valve structure. There is mild to moderate tricuspid valve regurgitation. There is no evidence of pulmonary hypertension. Great Vessels The asc aorta is normal in size. Venous The inferior vena cava is normal in size and collapses less than 50% with inspiration. Pericardium/Pleural There is a trivial pericardial effusion. Prior Study Comparison Changes noted compared to prior study dated: 06/07/2022. s/p AVR. Measurements 2D Linear Measurements IVSd: 1.27 0.6-0.9/0.6-1.0 cm LVIDd: 5.08 3.9-5.3/4.2-5.9 cm LVIDd Index: 2.34 2.4-3.2/2.2-3.1 cm/m2 LVIDs: 3.52 2.0-3.6 cm LVPWd: 0.99 0.7-1.1 cm LA Diam: 5.00 2.7-3.8/3.0-4.0 cm LAIDs Index: 2.30 1.5-2.3 cm/m2 LV Mass: 275.09 67-162/88-224 g LV Mass Index: 126.77 43-95/49-115 g/m2 LVOT Diam: 2.00 3.0+(-)1.3 cm 2D Systolic Function EF 4C: 62.50 >55% EF 2C: 59.60 >55% EF BiP: 58.60 >55% Mitral Valve MV Pk E: 1.21 MV PK A: 0.42 MV Decel Time: 264.00 E/A: 2.90 E'Lateral: 5.66 E'Medial: 7.18 E/E' Med: 16.90 E/E' Lat: 21.40 PHT: 77.00 MVA PHT: 2.86 Decel Pasco: 4.60 Aortic Valve AoV Pk Audi: 1.65 AoV Mn Audi: 1.16 AoV VTI: 0.32 AoV Pk Grad: 11.00 Aov Mn Grad: 7.00 DONOVAN Cont.VTI: 1.76 LVOT LVOT Pk Audi: 1.00 LVOT Mn Audi: 0.69 LVOT VTI: 0.18 LVOT Pk Grad: 4.00 LVOT Mn Grad: 3.00 LVOT Diam: 2.00 LVOT Area: 3.14 Diastolic Function MV Pk E: 1.21 MV Pk A: 0.42 E/A: 2.90 E'Medial: 7.18 E/E' Med: 16.90 E' Laterial: 5.66 E/E' Lat: 21.40 Right Ventricle TAPSE (mm): 20.30 TVS' Audi: 11.10 Tricuspid Valve TR Pk Audi: 2.27 TR Pk Grad: 21.00 RA Press: 8.00 RVSP: 29.00 Great Vessels Aorta Ao Asc: 3.90 2.1-3.4 cm Pulmonary Veins Pulm Vein S/D 0.80 Pulmonary Valve PV Pk Audi: 0.93 Peak PV Grad: 3.00 Updated in Other Vendor System with Status of Final Obdulio Graham MD electronically signed on 11/27/2022 1:15:58 PM with status of Final
== END ==
LOC: HO.CARD 12:41
PROVIDERS: PCP Internal Medicine; Visit Provider Internal Medicine Cardiovascular Disease
DX: Z95.2 Presence of prosthetic heart valve (principal)
CPT/HCPCS: 93306

== ENCOUNTER → 2022-12-01 09:39 | Outpatient (BNVA) | payer MEDICARE, SELFPAY ==
[2021-08-20 06:39] VITALS: BP 104/52
== END ==
PROVIDERS: PCP Internal Medicine; Referring Provider Internal Medicine; Visit Provider Internal Medicine Cardiovascular Disease
DX: Z45.018 Encounter for adjustment and management of other part of cardiac pacemaker (principal); I48.92 Unspecified atrial flutter; I25.10 Atherosclerotic heart disease of native coronary artery without angina pectoris; Z95.2 Presence of prosthetic heart valve
CPT/HCPCS: 93280; 99212

== ENCOUNTER → 2022-12-07 06:58 | Day surgery (SDC) | payer MEDICARE, SELFPAY ==
[2021-08-20 06:39] VITALS: BP 104/52
--- NOTE | 2022-12-06 08:39 | HO.ANESPROP2 ---
HPI - Anesthesia Eval Consult details Narrative: 87yo M for Cardioversion s/p TAVR 10/31/2022 (PCI with DEANNE prior) s/p Pacemaker Generator Change 10/2022 Eliquis for PAF PMFSH Active Problems Active Problems: All Active Problems (Updated 12/01/22 @ 10:09 by Hilario Dao MD) Stented coronary artery (Acute) S/P TAVR (transcatheter aortic valve replacement) (Acute) Atrial flutter (Acute) Cardiac pacemaker in situ (Acute ~2013) CAD (coronary artery disease) (Acute) Paroxysmal atrial fibrillation (Acute) Current use of anticoagulant therapy (Acute) Bilateral carotid artery stenosis (Acute) Atherosclerosis of both carotid arteries (Acute) HTN (hypertension) (Acute) Diabetes mellitus (Acute) Past Medical History Medical History (Updated 12/01/22 @ 10:09 by Hilario Dao MD) Aortic stenosis Atherosclerosis of both carotid arteries CAD (coronary artery disease) Cardiac pacemaker in situ (~2013) Diabetes mellitus Exertional angina HTN (hypertension) Paroxysmal atrial fibrillation Sick sinus syndrome (~2013) Tubular adenoma of colon Family History Family History Father No problems noted. Mother Lung cancer Surgical History Surgical History (Updated 12/01/22 @ 10:09 by Hilario Dao MD) History of appendectomy History of cardiac cath (~2017) History of cardioversion (~2014) History of cataract surgery History of colonoscopy (~2010) History of left hip replacement (~1998) History of melanoma excision (~2011) History of pacemaker (~2013) History of right hip replacement History of right-sided carotid endarterectomy (~2000) History of tonsillectomy Stented coronary artery Social History Social History Patient Tobacco Use Status: Former Tobacco user Quit Date: 2009 Tobacco use type: Cigarette Cigarette Packs Per Day: 1 Years Smoked: 50 Second Hand Smoke Exposure: No Meds Allergies Allergy/AdvReac Type Severity Reaction Status Date / Time No Known Allergies Allergy Verified 12/07/22 07:28 [No Known Allergies*] Home Medications Medication Instructions Recorded Confirmed Last Taken Type atorvastatin 40 mg tablet 40 mg PO DAILY 12/31/20 12/07/22 Unknown History glipizide 2.5 mg tablet, extended 2.5 mg PO DAILY 12/31/20 12/07/22 12/09/22 History release 24 hr levothyroxine 50 mcg tablet 50 mcg PO DAILY 12/31/20 12/07/22 12/09/22 History nitroglycerin 0.4 mg sublingual 0.4 mg sublingual TID PRN angina 12/31/20 12/07/22 Unknown History tablet ezetimibe 10 mg tablet (Zetia) 10 mg PO DAILY 07/05/22 12/07/22 Unknown History clopidogrel 75 mg tablet 75 mg PO DAILY 12/08/22 12/09/22 History dronedarone 400 mg tablet (Multaq) 400 mg PO BID 12/08/22 12/09/22 History Exam Exam Date and Time: December 06, 2022 0839 Pertinent Lab Results Pertinent Lab Results: Laboratory Tests 08/19/22 11/18/22 13:00 12:37 WBC 6.6 Hgb 12.9 L Hct 40.5 L Plt Count 160 Sodium 145 Potassium 4.8 Chloride 104 Carbon Dioxide 30 H BUN 30 H Creatinine 1.20 Narrative Narrative: ECHO 11/2022 Conclusions: - The left ventricular systolic function is normal.? The ? calculated ejection fraction is 59% by biplane method. ? - Evidence suggests grade III (severe) diastolic dysfunction.? ? - Moderate biatrial enlargement. ? - A bioprosthetic aortic valve is present.? The prosthetic aortic valve appears to be functioning normally.? - There is severe mitral annular calcification.? - There is mild to moderate tricuspid valve regurgitation. ? ? ? Assessment and Plan Assessment Anesthesia Assessment: Chart Reviewed
--- NOTE | 2022-12-06 18:54 | MHC.SHP ---
Pre-Procedural Eval Section A Date of Service: 12/06/22 The patient is an INPATIENT: No Changes since office visit: Yes Patient answered all questions; No Cold of Flu in the past 2 weeks, No New Medical Problems and No Changes in Medication The History & Physical has been completed within 30 days and I have reviewed it.: Yes Section B Chief Complaint: Other persistent atrial fibrillation Allergies: Allergies Allergy/AdvReac Type Severity Reaction Status Date / Time No Known Allergies Allergy Verified 12/01/22 09:47 [No Known Allergies*] Plan I have reviewed the history and physical and performed a pertinent physical examination on my patient. No changes have occurred unless specified. Time Spent With Patient Time: Total time managing care of this patient today ____ minutes.
[2022-12-07 07:25] VITALS: BMI 30.7
[2022-12-07 07:34] LABS: Glucose, Whole Blood 151 mg/dL (60-115)
[2022-12-07 07:36] VITALS: BP 135/63; PULSE 60; RESP 16; TEMP 36.2; O2SAT 100
[2022-12-07] MEDS: Lactated Ringers 1,000 ML 50 ML IVCONT (08:15)
--- NOTE | 2022-12-07 08:18 | PC.NURSE ---
PATIENT IN PREOP. WHEN RECONCILING MEDICATIONS, PATIENT UNAWARE THAT HE HAD TO START NEW MEDICATION (MULTAQ) PRESCRIBED BY DR. POLANCO DAYS AGO. DUE TO THIS, PER DR. POLANCO, CASE TO BE POSTPONED. THIS NURSE MADE PATIENT AWARE. IV REMOVED, TOLERATED WELL. PER DR. POLANCO, PATIENT TO START MULTAQ AND INCREASE LASIX TO BID STARTING TODAY. EVON ODEN OFFICE TO CALL PATIENT TO RESCHEDULE. THIS ALL WRITTEN DOWN FOR PATIENT BY THIS NURSE. PATIENT UNDERSTANDS PLAN. RIDE CALLED.
== END ==
PROVIDERS: PCP Internal Medicine; Visit Provider Internal Medicine Cardiovascular Disease
DX: I48.19 Other persistent atrial fibrillation (principal); Z53.8 Procedure and treatment not carried out for other reasons; E11.9 Type 2 diabetes mellitus without complications; Z79.01 Long term (current) use of anticoagulants; Z79.84 Long term (current) use of oral hypoglycemic drugs; Z95.2 Presence of prosthetic heart valve
CPT/HCPCS: 82947

== ENCOUNTER 2022-12-09 11:12 | Day surgery (SDC) | payer MEDICARE, SELFPAY ==
[2021-08-20 06:39] VITALS: BP 104/52
--- NOTE | 2022-12-08 11:56 | P.CONAN_ITS ---
Documented by User: Bing Bertrand NP 12/08/22 11:57 HPI - Anesthesia Eval Consult details Narrative: 87yo M for Cardioversion s/p? TAVR 10/31/2022 (PCI with DEANNE prior) s/p Pacemaker Generator Change 10/2022 Eliquis for PAF PMFSH Active Problems Active Problems: All Active Problems (Updated 12/01/22 @ 10:09 by Hilario Dao MD) Stented coronary artery (Acute) S/P TAVR (transcatheter aortic valve replacement) (Acute) Atrial flutter (Acute) Cardiac pacemaker in situ (Acute ~2013) CAD (coronary artery disease) (Acute) Paroxysmal atrial fibrillation (Acute) Current use of anticoagulant therapy (Acute) Bilateral carotid artery stenosis (Acute) Atherosclerosis of both carotid arteries (Acute) HTN (hypertension) (Acute) Diabetes mellitus (Acute) Past Medical History Medical History (Updated 12/01/22 @ 10:09 by Hilario Dao MD) Aortic stenosis Atherosclerosis of both carotid arteries CAD (coronary artery disease) Cardiac pacemaker in situ (~2013) Diabetes mellitus Exertional angina HTN (hypertension) Paroxysmal atrial fibrillation Sick sinus syndrome (~2013) Tubular adenoma of colon Family History Family History Father No problems noted. Mother Lung cancer Surgical History Surgical History (Updated 12/01/22 @ 10:09 by Hilario Dao MD) History of appendectomy History of cardiac cath (~2017) History of cardioversion (~2014) History of cataract surgery History of colonoscopy (~2010) History of left hip replacement (~1998) History of melanoma excision (~2011) History of pacemaker (~2013) History of right hip replacement History of right-sided carotid endarterectomy (~2000) History of tonsillectomy Stented coronary artery Social History Social History Patient Tobacco Use Status: Former Tobacco user Quit Date: 2009 Tobacco use type: Cigarette Cigarette Packs Per Day: 1 Years Smoked: 50 Second Hand Smoke Exposure: No Use of substances other than those prescribed or required for medical reasons: No Are you DNR?: No Advance Directives: No Advance Directives Information Provided: Yes Advance Directives on File: No Meds Allergies Allergy/AdvReac Type Severity Reaction Status Date / Time No Known Allergies Allergy Verified 12/07/22 07:28 [No Known Allergies*] Home Medications Medication Instructions Recorded Confirmed Last Taken Type atorvastatin 40 mg tablet 40 mg PO DAILY 12/31/20 12/07/22 Unknown History glipizide 2.5 mg tablet, extended 2.5 mg PO DAILY 12/31/20 12/07/22 12/09/22 History release 24 hr levothyroxine 50 mcg tablet 50 mcg PO DAILY 12/31/20 12/07/22 12/09/22 History nitroglycerin 0.4 mg sublingual 0.4 mg sublingual TID PRN angina 12/31/20 12/07/22 Unknown History tablet ezetimibe 10 mg tablet (Zetia) 10 mg PO DAILY 07/05/22 12/07/22 Unknown History clopidogrel 75 mg tablet 75 mg PO DAILY 12/08/22 12/09/22 History dronedarone 400 mg tablet (Multaq) 400 mg PO BID 12/08/22 12/09/22 History Exam Exam Date and Time: December 08, 2022 1156 Pertinent Lab Results Pertinent Lab Results: Laboratory Tests ? 08/19/22 11/18/22 ? 13:00 12:37 WBC ?6.6 ? Hgb ?12.9 L ? Hct ?40.5 L ? Plt Count ?160 ? Sodium ? ?145 Potassium ? ?4.8 Chloride ? ?104 Carbon Dioxide ? ?30 H BUN ? ?30 H Creatinine ? ?1.20 Narrative Narrative: Narrative Narrative: ECHO 11/2022 Conclusions: - The left ventricular systolic function is normal.? The calculated ejection fraction is 59% by biplane method. ? - Evidence suggests grade III (severe) diastolic dysfunction.? ? - Moderate biatrial enlargement. ? - A bioprosthetic aortic valve is present.? The prosthetic aortic valve appears to be functioning normally.? - There is severe mitral annular calcification.? - There is mild to moderate tricuspid valve regurgitation. ? Assessment and Plan Assessment Anesthesia Assessment: Chart Reviewed Documented by User: Cary Paul DO 12/09/22 13:54 [facility] Past Medical History Medical History (Updated 12/01/22 @ 10:09 by Hilario Dao MD) Aortic stenosis Atherosclerosis of both carotid arteries CAD (coronary artery disease) Cardiac pacemaker in situ (~2013) Diabetes mellitus Exertional angina HTN (hypertension) Paroxysmal atrial fibrillation Sick sinus syndrome (~2013) Tubular adenoma of colon Family History Family History Father No problems noted. Mother Lung cancer Family history of problems with anesthesia: No Surgical History Surgical History (Updated 12/01/22 @ 10:09 by Hilario Dao MD) History of appendectomy History of cardiac cath (~2017) History of cardioversion (~2014) History of cataract surgery History of colonoscopy (~2010) History of left hip replacement (~1998) History of melanoma excision (~2011) History of pacemaker (~2013) History of right hip replacement History of right-sided carotid endarterectomy (~2000) History of tonsillectomy Stented coronary artery History of Problems with Anesthesia: No Social History Social History Patient Tobacco Use Status: Former Tobacco user Quit Date: 2009 Tobacco use type: Cigarette Cigarette Packs Per Day: 1 Years Smoked: 50 Second Hand Smoke Exposure: No Use of substances other than those prescribed or required for medical reasons: No Are you DNR?: No Advance Directives: No Advance Directives Information Provided: Yes Advance Directives on File: No Meds Allergies Allergy/AdvReac Type Severity Reaction Status Date / Time No Known Allergies Allergy Verified 12/07/22 07:28 [No Known Allergies*] Home Medications Medication Instructions Recorded Confirmed Last Taken Type atorvastatin 40 mg tablet 40 mg PO DAILY 12/31/20 12/07/22 Unknown History glipizide 2.5 mg tablet, extended 2.5 mg PO DAILY 12/31/20 12/07/22 12/09/22 History release 24 hr levothyroxine 50 mcg tablet 50 mcg PO DAILY 12/31/20 12/07/22 12/09/22 History nitroglycerin 0.4 mg sublingual 0.4 mg sublingual TID PRN angina 12/31/20 12/07/22 Unknown History tablet ezetimibe 10 mg tablet (Zetia) 10 mg PO DAILY 07/05/22 12/07/22 Unknown History clopidogrel 75 mg tablet 75 mg PO DAILY 12/08/22 12/09/22 History dronedarone 400 mg tablet (Multaq) 400 mg PO BID 12/08/22 12/09/22 History Exam Exam Date and Time: December 09, 2022 1344 Airway Mallampati Class: III TM Dist: >3cm Neck ROM: Full Loose/Missing/Broken Teeth: No Heart: S1S2. Paced at 60 bpm on telemetry. Lungs: CTAB Assessment and Plan Assessment Anesthesia Assessment: Anesthesia Plan Discussed Final Anesthetic Review Family History of Problems with Anesthesia: No History of Problems with Anesthesia: No NPO: Yes ASA Class: III Final Preanesthetic Review: No Changes in Pt Med Stat, Meds/Allgs Chart Rev iewed, Consent Obtained/Reviewed and Anes Risks/Benef Reviewed Patient Risk: Intermediate Procedure Risk: Low Anesthetic Plan Anesthetic Plan: MAC: Disposition: Standard PACU
--- NOTE | 2022-12-09 11:51 | MHC.SHP ---
Pre-Procedural Eval Section A Date of Service: 12/09/22 The patient is an INPATIENT: No Changes since office visit: Yes Changes in Medication and Yes Patient answered all questions; No Cold of Flu in the past 2 weeks and No New Medical Problems The History & Physical has been completed within 30 days and I have reviewed it.: Yes Section B Chief Complaint: afib Allergies: Allergies Allergy/AdvReac Type Severity Reaction Status Date / Time No Known Allergies Allergy Verified 12/07/22 07:28 [No Known Allergies*] Plan I have reviewed the history and physical and performed a pertinent physical examination on my patient. No changes have occurred unless specified. Time Spent With Patient Time: Total time managing care of this patient today ____ minutes.
[2022-12-09 11:52] VITALS: BMI 30.7
[2022-12-09 11:58] VITALS: BP 128/62; PULSE 60; RESP 16; TEMP 36.2; O2SAT 98
[2022-12-09] MEDS: Lactated Ringers 1,000 ML 50 ML IVCONT (12:25)
--- NOTE | 2022-12-09 12:25 | PC.NURSE ---
repositioned two assist in bed and noticed a triangle right lower leg wound. patient states he cut it on a car door. cleaned right lower leg and applied xeroform and band aid. explained to patient to watch his wound due to his diabetes. patient aware.
[2022-12-09 12:26] LABS: Glucose, Whole Blood 111 mg/dL (60-115)
[2022-12-09 14:15] VITALS: BP 104/48; PULSE 60; RESP 15; TEMP 36.1; O2SAT 100
--- NOTE | 2022-12-09 14:17 | ECG_ITS ---
Test Reason : post cardioversion Blood Pressure : / mmHG Vent. Rate : 060 BPM Atrial Rate : 060 BPM P-R Int : 232 ms QRS Dur : 172 ms QT Int : 510 ms P-R-T Axes : 000 -83 098 degrees QTc Int : 510 ms AV dual-paced rhythm with prolonged AV conduction Abnormal ECG When compared with ECG of 27-MAR-2015 14:48, AV dual-paced rhythm has replaced Electronic atrial pacemaker Referred By: Hilario Dao Electronically Signed By:HILARIO DAO MD
--- NOTE | 2022-12-09 14:19 | HO.CARDIVERS ---
Cardioversion Procedure Note Cardioversion Date of Procedure: Today Ordering Provider: Myself Performing Provider: Myself Indication for Procedure: Persistent symptomatic atrial flutter Pre-Op Diagnosis: Same Post-Op Diagnosis: Sinus/atrial paced rhythm Performed with Transesophageal Echo: No History: See my office note Consent: Verbal and Written consent was obtained from the patient before starting and after confirming oral anticoagulation on Multaq use. The patient was made aware of the risk of synchronized cardioversion including benefits and alternatives Procedure: After consent obtained, cardioversion pads were attached anteroposterior configuration and the patient was sedated by the anesthesia team. Once adequate sedation achieved, patient was delivered 200 joules of biphasic synchronized energy in anteroposterior configuration Complications: None Impression: Successful establishment of AV synchrony Recommendations: 1. 12 lead EKG 2. Continue full oral anticoagulation Multaq 3. Pacemaker was interrogated with atrial ventricular pacing thresholds stable.
[2022-12-09 14:30] VITALS: BP 103/49; PULSE 60; RESP 16; TEMP 36.1; O2SAT 100
== END 2022-12-09 15:05 | disposition home or self-care (01) ==
PROVIDERS: PCP Internal Medicine; Visit Provider Internal Medicine Cardiovascular Disease
PROC: 5A2204Z Restoration of Cardiac Rhythm, Single (ICD-10-PCS; principal; 2022-12-09 13:30)
DX: I48.19 Other persistent atrial fibrillation (principal); I25.10 Atherosclerotic heart disease of native coronary artery without angina pectoris; I10 Essential (primary) hypertension; Z95.5 Presence of coronary angioplasty implant and graft; Z95.0 Presence of cardiac pacemaker; E11.9 Type 2 diabetes mellitus without complications; Z79.01 Long term (current) use of anticoagulants; Z79.84 Long term (current) use of oral hypoglycemic drugs; Z79.899 Other long term (current) drug therapy; Z87.891 Personal history of nicotine dependence; I49.5 Sick sinus syndrome
CPT/HCPCS: 82947; 92960; 93005

== ENCOUNTER 2023-01-10 09:07 | Outpatient (REF) | payer MEDICARE, SELFPAY ==
[2021-08-20 06:39] VITALS: BP 104/52
[2023-01-10 11:02] LABS: Anion Gap 14 (12-20); Blood Urea Nitrogen 53 mg/dL (9-16); Calcium 9.2 mg/dL (8.4-10.2); Carbon Dioxide 30 mmol/L (22-29); Chloride 103 mmol/L (96-108); Estimated Glomerular Filt Rate 36; Glucose Random 109 mg/dL (60-115); Potassium 4.8 mmol/L (3.3-5.1); Sodium 142 mmol/L (135-145)
[2023-01-10 11:06] LABS: B Type Natriuretic Peptide 533 pg/mL (<100)
== END 2023-01-10 09:08 | disposition home or self-care (01) ==
LOC: HO.LAB 09:07
PROVIDERS: PCP Internal Medicine; Visit Provider Internal Medicine Cardiovascular Disease
DX: I50.30 Unspecified diastolic (congestive) heart failure (principal); I48.0 Paroxysmal atrial fibrillation; I25.10 Atherosclerotic heart disease of native coronary artery without angina pectoris; Z95.0 Presence of cardiac pacemaker; Z95.2 Presence of prosthetic heart valve
CPT/HCPCS: 36415; 80048; 83880; 93005; 93280; 99212

== ENCOUNTER 2023-04-18 13:23 | Outpatient (AMB) | payer MEDICARE, SELFPAY ==
[2021-08-20 06:39] VITALS: BP 104/52
[2023-01-10 09:41] VITALS: BP 104/52
--- NOTE | 2023-04-18 13:25 | MHC.OFFVIS ---
Intake Vital Signs 04/18/23 13:26 Height 5 ft 11 in Weight 209 lb 7.026 oz BMI 29.2 BP 120/76 Blood Pressure Location Lt brachial Position Sitting Pulse 60 Intake Visit Reasons: 3 mth f/up w/ pacer ck @ ekg Intake Note: 3 month follow-up with [facility] and ekg check c/o being in the bathroom all night do the lasix he takes at night [employer] Required: No Allergies No Known Allergies [No Known Allergies*] Allergy (Verified 12/07/22 07:28) Medication List - Last Reconciled 04/18/23 by Hilario Dao MD apixaban (Eliquis) 5 mg PO BID 90 days atorvastatin 40 mg PO DAILY clopidogrel 75 mg PO DAILY ezetimibe (Zetia) 10 mg PO DAILY furosemide 20 mg PO BID glipizide ER 2.5 mg PO DAILY levothyroxine 50 mcg PO DAILY lisinopril 5 mg PO DAILY metoprolol tartrate 50 mg PO BID 90 days nitroglycerin 0.4 mg sublingual TID PRN HPI HPI Comments History of Present Illness Details Trey comes for follow-up. He said he is not doing well and having increasing symptoms of fatigue and shortness of breath. However his heart failure symptoms of leg edema and orthopnea PND have improved diuretic therapy. Comes for follow-up of his pacemaker check and noted to be in recurrent atrial flutter for the last few weeks. He denies any palpitations, lightheadedness, syncope. No recurrent anginal sounding chest discomfort. Denies any bleeding issues or neurologic events. Takes his oral anticoagulation religiously. [facility] Medical History Tubular adenoma of colon Atherosclerosis of both carotid arteries Aortic stenosis Exertional angina Paroxysmal atrial fibrillation Diabetes mellitus HTN (hypertension) Sick sinus syndrome (~2013) Cardiac pacemaker in situ (~2013) CAD (coronary artery disease) Surgical History Stented coronary artery History of cataract surgery History of tonsillectomy History of appendectomy History of right hip replacement History of cardioversion (~2014) History of left hip replacement (~1998) History of melanoma excision (~2011) History of colonoscopy (~2010) History of cardiac cath (~2017) History of right-sided carotid endarterectomy (~2000) History of pacemaker (~2013) Family History Father No problems noted. Mother Lung cancer Social History Patient Tobacco Use Status: Former Tobacco user Quit Date: 2009 Tobacco use type: Cigarette Cigarette Packs Per Day: 1 Years Smoked: 50 Second Hand Smoke Exposure: No Review of Systems Const Denies chills, Denies fatigue, Denies fever(s), Denies frequent falls, Denies weakness, Denies weight gain and Denies weight loss ENT Reports Normal hearing present and Denies dizziness Card Denies chest pain, Denies leg edema, Denies lightheadedness, Denies palpitations, Denies dyspnea, Denies dyspnea on exertion, Denies orthopnea and Denies other (loss of consciousness) Resp Denies cough, Denies dyspnea and Denies dyspnea on exertion GI Denies hematochezia and Denies change in stool character Musc Denies abnormal gait, Denies muscle weakness, Denies numbness, Denies radiating pain into limb and Denies tingling Neuro Reports Normal hearing present, Denies abnormal gait, Denies dizziness, Denies frequent falls, Denies numbness, Denies tingling and Denies weakness Endo Denies fatigue and Denies palpitations Physical Exam Vital Signs: Last Vital Signs Pulse 60 04/18/23 13:26 BP 120/76 04/18/23 13:26 BMI result Body Mass Index 29.2 Const General: cooperative, healthy appearing and comfortable Orientation/consciousness: oriented to person, oriented to place and oriented to time HEENT Head: Yes normal to inspection Neck Neck: Yes normal visual inspection Carotids: no bruits Chest Chest palpation & inspection: normal inspection of the chest Resp Effort & Inspection: normal respiratory effort and able to speak in complete sentences Auscultation: clear to auscultation bilaterally, no crackles, no rales, no rhonchi and no wheezes Cardio Rate: regular rate Rhythm: abnormal rhythm irregularly irregular Heart sounds: S1 normal heart sound present, S2 normal heart sound present, no click, no gallops and no murmurs Bruits: no carotid bruits Peripheral pulses: Peripheral pulses 2+ throughout GI Inspection: Yes normal to inspection Skin General skin exam: crusts, dry skin and ecchymosis Wounds: no wounds Hair: normal Neuro General: oriented to person, oriented to place and oriented to time Cranial nerves: Yes Normal hearing present Cognition (Neuro): normal cognition Motor exam (neuro): 5/5 motor strength present throughout Extrem Other: venous exam: No significant superficial varicosities or spider telangiectasias, minimal edema General: No clubbing, No cyanosis, Yes edema (1+) and Yes venous stasis dermatitis Psych Appearance: grossly normal Mental Status: mental status grossly normal Speech and movement: Normal speech and movement present Office Procedures Cardiac Device Check Cardiac Device Check Details: Dual-chamber [facility] pacemaker in place, reprogrammed from DDDR to DDIR due to persistent atrial flutter. Battery life is adequate. No other programming changes were made 25716-[id number] Cardiac Device Check, pacemaker dual lead Procedure code (CPT) selection complete EKG Details: EKG shows ventricular paced rhythm with underlying atrial flutter [id number], Complete Assessment & Plan Assessment & Plan (1) Atrial flutter: Code(s): I48.92 - Unspecified atrial flutter Plan: Persistent atrial flutter for few weeks. Increasing symptoms of fatigue and shortness of breath. This is not unusual given his diastolic dysfunction. Recommend loading with amiodarone 400 mg b.i.d. for 2 weeks followed by synchronized cardioversion. Risks, benefits were discussed. Continue full oral anticoagulation with Eliquis without interruption. (2) Cardiac pacemaker in situ: Onset Date: ~2013 Comment: ([facility] DCPP - placed 2013 for SSS; generator change 2022) Code(s): Z95.0 - Presence of cardiac pacemaker Plan: Cardiac pacemaker in-situ, reprogrammed. Will re program after synchronized cardioversion. (3) CAD (coronary artery disease): Comment: (08/2017 Cardiac Cath showed severe ostial OM1 disease, severe ostial RPDA disease - not candidate for intervention) Code(s): I25.10 - Atherosclerotic heart disease of [place] coronary artery without angina pectoris Plan: CAD with ostial RCA intervention in October. No symptoms of angina. Has distal diffuse disease in the OM as well as ostial RPDA. Continue aggressive risk factor modification. Will restart Plavix 75 mg daily. Continue ezetimibe as well as statin therapy to reduce LDL cholesterol less than 70 mg/dL. Blood pressure is currently well optimized. (4) S/P TAVR (transcatheter aortic valve replacement): Comment: Status post 29 mm Medtronic Evolut, 10/31/2022 Code(s): Z95.2 - Presence of prosthetic heart valve Plan: Status post transcatheter aortic valve replacement, working well clinically. Continue to monitor. Continue both Eliquis and Plavix. Plavix will be discontinued October of 2022. SBE prophylaxis as per ACC/[place] guidelines. (5) (HFpEF) heart failure with preserved ejection fraction: Code(s): I50.30 - Unspecified diastolic (congestive) heart failure Plan: Heart failure preserved ejection fraction, clinically euvolemic and well compensated current diuretic regimen. Advised to continue the same. Daily weight monitoring avoidance of salt loading was discussed. Additional diuretics as need be. Will pursue rhythm control approach to prevent recurrent heart failure and progressive heart failure syndrome. Management was discussed in details. Greater than 40 minutes was spent in managing his complex care. Orders: Orders Cardioversion 2 Weeks I48.92 - Unspecified atrial flutter Medications: New amiodarone Start after 15 days of loading 200 mg PO DAILY 30 tabs 5RF amiodarone 400 mg PO BID 30 tabs 0RF amiodarone 400 mg PO BID 30 tabs 0RF Changed From furosemide 20 mg PO DAILY 30 tabs 5RF To furosemide 20 mg PO BID Coding Level of Care Code Est Pt Level 5 (04173) Diagnoses Atrial flutter I48.92 Cardiac pacemaker in situ Z95.0 CAD (coronary artery disease) I25.10 S/P TAVR (transcatheter aortic valve replacement) Z95.2 (HFpEF) heart failure with preserved ejection fraction I50.30 CPT Codes Cardiac Device Check - Cardiac Device 2: [id number] Cardiac Device Check, pacemaker dual lead ([id number]) EKG - CPT: 13022-Dmnrgeqpabkyrpugd, Complete ([id number])
[2023-04-18 13:26] VITALS: BP 120/76; PULSE 60; BMI 29.2
== END 2023-04-18 13:53 | disposition home or self-care (01) ==
PROVIDERS: PCP Internal Medicine; Referring Provider Internal Medicine; Visit Provider Internal Medicine Cardiovascular Disease
DX: I48.92 Unspecified atrial flutter (principal); Z95.0 Presence of cardiac pacemaker; I25.10 Atherosclerotic heart disease of native coronary artery without angina pectoris; Z95.2 Presence of prosthetic heart valve; I50.30 Unspecified diastolic (congestive) heart failure
CPT/HCPCS: 93280; 99215

== ENCOUNTER → 2023-04-18 13:23 | Outpatient (BNVA) | payer MEDICARE, SELFPAY ==
[2023-01-10 09:41] VITALS: BP 104/52
== END ==
PROVIDERS: PCP Internal Medicine; Referring Provider Internal Medicine; Visit Provider Internal Medicine Cardiovascular Disease
DX: I48.92 Unspecified atrial flutter (principal); I25.10 Atherosclerotic heart disease of native coronary artery without angina pectoris; I50.30 Unspecified diastolic (congestive) heart failure; Z95.2 Presence of prosthetic heart valve; Z79.01 Long term (current) use of anticoagulants; Z79.899 Other long term (current) drug therapy; Z45.018 Encounter for adjustment and management of other part of cardiac pacemaker
CPT/HCPCS: 93005; 93280; 99212

== ENCOUNTER → 2023-05-01 23:59 | Outpatient (BNV) | payer MEDICARE, SELFPAY ==
[2023-01-10 09:41] VITALS: BP 104/52
--- NOTE | 2023-05-01 15:52 | MHC.OFFVIS ---
Intake Intake Visit Reasons: Remote device check- [facility] Allergies No Known Allergies [No Known Allergies*] Allergy (Verified 12/07/22 07:28) [facility] Medical History Tubular adenoma of colon Atherosclerosis of both carotid arteries Aortic stenosis Exertional angina Paroxysmal atrial fibrillation Diabetes mellitus HTN (hypertension) Sick sinus syndrome (~2013) Cardiac pacemaker in situ (~2013) CAD (coronary artery disease) Surgical History Stented coronary artery History of cataract surgery History of tonsillectomy History of appendectomy History of right hip replacement History of cardioversion (~2014) History of left hip replacement (~1998) History of melanoma excision (~2011) History of colonoscopy (~2010) History of cardiac cath (~2017) History of right-sided carotid endarterectomy (~2000) History of pacemaker (~2013) Family History Father No problems noted. Mother Lung cancer Social History Patient Tobacco Use Status: Former Tobacco user Quit Date: 2009 Tobacco use type: Cigarette Cigarette Packs Per Day: 1 Years Smoked: 50 Second Hand Smoke Exposure: No Office Procedures Cardiac Device Check Cardiac Device Check Details: Remote pacemaker report generated 05/01/2023. Pacemaker function is adequate. Persistent atrial fibrillation noted for 98% of the time. Will follow-up with patient regarding symptoms [id number] Cardiac Device Interrogation, pacemaker Procedure code (CPT) selection complete Coding Level of Care Code Procedure Only CPT Codes Cardiac Device Check - Cardiac Device 12: [id number] Cardiac Device Interrogation, pacemaker ([id number])
== END ==
PROVIDERS: PCP Internal Medicine; Visit Provider Internal Medicine Cardiovascular Disease
DX: I48.19 Other persistent atrial fibrillation (principal); Z95.0 Presence of cardiac pacemaker
CPT/HCPCS: 93294

== ENCOUNTER 2023-05-03 10:06 | Day surgery (SDC) | payer MEDICARE, SELFPAY ==
[2023-01-10 09:41] VITALS: BP 104/52
[2023-05-01 14:48] VITALS: BMI 29.1
[2023-05-03 10:31] VITALS: BP 101/45; PULSE 60; RESP 20; TEMP 36.8; O2SAT 96
[2023-05-03 10:50] LABS: Glucose, Whole Blood 119 mg/dL (60-115)
[2023-05-03] MEDS: Lactated Ringers 1,000 ML 50 ML IVCONT (11:16)
--- NOTE | 2023-05-03 11:25 | MHC.SHP ---
Pre-Procedural Eval Section A Date of Service: 05/03/23 The patient is an INPATIENT: No Changes since office visit: Yes Patient answered all questions; No Cold of Flu in the past 2 weeks, No New Medical Problems and No Changes in Medication The History & Physical has been completed within 30 days and I have reviewed it.: Yes Section B Chief Complaint: afib Allergies: Allergies Allergy/AdvReac Type Severity Reaction Status Date / Time No Known Allergies Allergy Verified 12/07/22 07:28 [No Known Allergies*] Plan I have reviewed the history and physical and performed a pertinent physical examination on my patient. No changes have occurred unless specified. Time Spent With Patient Time: Total time managing care of this patient today ____ minutes.
--- NOTE | 2023-05-03 11:26 | P.CONAN_ITS ---
HPI - Anesthesia Eval Consult details Narrative: Atrial Fibrillation [facility] Active Problems Active Problems: All Active Problems (Updated 01/10/23 @ 09:40 by Hilario Dao MD) (HFpEF) heart failure with preserved ejection fraction (Acute) Stented coronary artery (Acute) S/P TAVR (transcatheter aortic valve replacement) (Acute) Atrial flutter (Acute) Cardiac pacemaker in situ (Acute ~2013) CAD (coronary artery disease) (Acute) Paroxysmal atrial fibrillation (Acute) Current use of anticoagulant therapy (Acute) Bilateral carotid artery stenosis (Acute) Atherosclerosis of both carotid arteries (Acute) HTN (hypertension) (Acute) Diabetes mellitus (Acute) Past Medical History Medical History Tubular adenoma of colon Atherosclerosis of both carotid arteries Aortic stenosis Exertional angina Paroxysmal atrial fibrillation Diabetes mellitus HTN (hypertension) Sick sinus syndrome (~2013) Cardiac pacemaker in situ (~2013) CAD (coronary artery disease) Family History Family History Father No problems noted. Mother Lung cancer Family history of problems with anesthesia: No Surgical History Surgical History Stented coronary artery History of cataract surgery History of tonsillectomy History of appendectomy History of right hip replacement History of cardioversion (~2014) History of left hip replacement (~1998) History of melanoma excision (~2011) History of colonoscopy (~2010) History of cardiac cath (~2017) History of right-sided carotid endarterectomy (~2000) History of pacemaker (~2013) History of Problems with Anesthesia: No Social History Social History Patient Tobacco Use Status: Former Tobacco user Quit Date: 2009 Tobacco use type: Cigarette Cigarette Packs Per Day: 1 Years Smoked: 50 Second Hand Smoke Exposure: No Are you DNR?: No Advance Directives: No Advance Directives Information Provided: Yes Meds Allergies Allergy/AdvReac Type Severity Reaction Status Date / Time No Known Allergies Allergy Verified 12/07/22 07:28 [No Known Allergies*] Active Medications: Current Medications Lactated Ringer's (Lr) 1,000 mls @ 50 mls/hr IVCONT .Q20H ERIN Last Admin: 05/03/23 11:16 Dose: 50 mls/hr Home Medications Medication Instructions Recorded Confirmed Last Taken Type atorvastatin 40 mg tablet 40 mg PO DAILY 12/31/20 05/01/23 05/03/23 History glipizide 2.5 mg tablet, extended 2.5 mg PO DAILY 12/31/20 05/01/23 05/03/23 History release 24 hr nitroglycerin 0.4 mg sublingual 0.4 mg sublingual TID PRN angina 12/31/20 05/01/23 03/01/22 History tablet ezetimibe 10 mg tablet (Zetia) 10 mg PO DAILY 07/05/22 05/01/23 05/03/23 History levothyroxine 50 mcg tablet 50 mcg PO DAILY 01/10/23 05/01/23 05/03/23 History lisinopril 5 mg tablet 5 mg PO DAILY 04/18/23 05/01/23 05/03/23 History Exam Exam Date and Time: May 03, 2023 112 Height,Weight and Vital Signs: Height 5 ft 11 in Weight 94.801 kg Last Vital Signs Temp 98.3 F 05/03/23 10:31 Pulse 60 05/03/23 10:31 Resp 20 05/03/23 10:31 BP 101/45 L 05/03/23 10:31 Pulse Ox 96 05/03/23 10:31 O2 Del Method Room Air 05/03/23 10:31 Pertinent Lab Results Pertinent Lab Results: Laboratory Tests 05/03/23 10:46 POC Glucose 119 H Airway Mallampati Class: II TM Dist: >3cm Neck ROM: Full Loose/Missing/Broken Teeth: No Heart: irreg irregular s1s2 Lungs: cta b/l Assessment and Plan Assessment Anesthesia Assessment: Anesthesia Plan Discussed and Chart Reviewed Final Anesthetic Review Family History of Problems with Anesthesia: No History of Problems with Anesthesia: No NPO: Yes ASA Class: III Final Preanesthetic Review: No Changes in Pt Med Stat, Meds/Allgs Chart Reviewed, Consent Obtained/Reviewed and Anes Risks/Benef Reviewed Patient Risk: Intermediate Procedure Risk: Intermediate Assessment/Block/Sedation in SS: Assess/Block/Sedation-SS Anesthetic Plan Anesthetic Plan: GA and Agree w/ Assess. and Plan Disposition: Standard PACU
[2023-05-03 12:51] VITALS: BP 116/57; PULSE 71; RESP 15; TEMP 36.3; O2SAT 100
--- NOTE | 2023-05-03 12:51 | ECG_ITS ---
Test Reason : s/p cardioversion Blood Pressure : / mmHG Vent. Rate : 070 BPM Atrial Rate : 070 BPM P-R Int : 232 ms QRS Dur : 184 ms QT Int : 512 ms P-R-T Axes : 000 -86 092 degrees QTc Int : 552 ms AV dual-paced rhythm with prolonged AV conduction Abnormal ECG When compared with ECG of 09-DEC-2022 14:25, Vent. rate has increased BY 10 BPM Referred By: Hilario Dao Electronically Signed By:MARILU MIRZA
[2023-05-03 12:56] VITALS: BP 110/55; PULSE 70; RESP 17; O2SAT 99
--- NOTE | 2023-05-03 12:56 | HO.CARDIVERS ---
Cardioversion Procedure Note Cardioversion Date of Procedure: Today Ordering Provider: Myself Performing Provider: Myself Indication for Procedure: Persistent recurrent symptomatic atrial fibrillation/flutter Pre-Op Diagnosis: Same Post-Op Diagnosis: Atrial paced rhythm Performed with Transesophageal Echo: No History: See my office note Consent: Verbal and Written consent was obtained from the patient before starting and after confirming oral anticoagulation use and amiodarone use. The patient was made aware of the risk of synchronized cardioversion including benefits and alternatives Procedure: After consent obtained, cardioversion pads were attached in anteroposterior configuration and the patient was sedated by the anesthesia team. Once adequate sedation achieved, patient was delivered 200 joules of biphasic synchronized energy in anteroposterior configuration. Pacemaker was then interval gated with noted dual AV paced rhythm. Atrial sensing had improved. Atrial pacing thresholds adequate and reprogrammed. Mode was changed from DDIR at 60 beats per minute to DDDR at 70 beats per minute. Lead impedances were stable Complications: None Impression: Successful conversion to dual AV paced rhythm with establishment of AV synchrony Recommendations: 1. 12 lead EKG 2. Switch amiodarone to 200 mg daily and continue full oral anticoagulation 3. Follow up in the office in 4 weeks
[2023-05-03 13:01] VITALS: BP 103/61; PULSE 70; RESP 14; O2SAT 99
[2023-05-03 13:06] VITALS: BP 123/59; PULSE 70; RESP 15; O2SAT 100
[2023-05-03 13:21] VITALS: BP 130/64; PULSE 70; RESP 14; TEMP 36.4; O2SAT 100
== END 2023-05-03 14:52 | disposition home or self-care (01) ==
PROVIDERS: PCP Internal Medicine; Visit Provider Internal Medicine Cardiovascular Disease
PROC: 5A2204Z Restoration of Cardiac Rhythm, Single (ICD-10-PCS; principal; 2023-05-03 12:10)
DX: I48.19 Other persistent atrial fibrillation (principal); I48.92 Unspecified atrial flutter; Z79.01 Long term (current) use of anticoagulants; I50.30 Unspecified diastolic (congestive) heart failure; I25.10 Atherosclerotic heart disease of native coronary artery without angina pectoris; I10 Essential (primary) hypertension; Z95.5 Presence of coronary angioplasty implant and graft; Z87.891 Personal history of nicotine dependence; Z95.0 Presence of cardiac pacemaker; I49.5 Sick sinus syndrome; Z95.2 Presence of prosthetic heart valve; E11.9 Type 2 diabetes mellitus without complications; Z79.899 Other long term (current) drug therapy
CPT/HCPCS: 82947; 92960; 93005

== ENCOUNTER → 2023-05-03 10:06 | Outpatient (BNV) | payer MEDICARE, SELFPAY ==
[2023-01-10 09:41] VITALS: BP 104/52
== END ==
PROVIDERS: PCP Internal Medicine; Visit Provider Internal Medicine Cardiovascular Disease
DX: I48.19 Other persistent atrial fibrillation (principal)
CPT/HCPCS: 92960

== ENCOUNTER 2023-08-02 14:00 | Outpatient (RCR) | payer MEDICARE, SELFPAY ==
[2023-01-10 09:41] VITALS: BP 104/52
[2023-05-30 13:01] VITALS: BP 105/55; PULSE 69
== END 2023-08-16 08:18 | disposition home or self-care (01) ==
LOC: HO.PT 14:00
PROVIDERS: PCP Internal Medicine; Visit Provider Internal Medicine
DX: M54.50 Low back pain, unspecified (principal)
CPT/HCPCS: 97110; 97162

== ENCOUNTER 2023-08-29 11:19 | Outpatient (REF) | payer MEDICARE, SELFPAY ==
[2023-01-10 09:41] VITALS: BP 104/52
[2023-08-29 12:05] LABS: Influenza A PCR NEGATIVE (Negative); Influenza B PCR NEGATIVE (Negative); Resp Syncy Virus RNA Qual PCR NEGATIVE (Negative); SARS COV2 PCR INHOUSE NEGATIVE (Negative)
== END 2023-08-29 11:20 | disposition home or self-care (01) ==
LOC: HO.LNP 11:19
PROVIDERS: Visit Provider Internal Medicine
DX: R19.7 Diarrhea, unspecified (principal); R09.89 Other specified symptoms and signs involving the circulatory and respiratory systems; Z11.52 Encounter for screening for COVID-19; Z20.828 Contact with and (suspected) exposure to other viral communicable diseases
CPT/HCPCS: 0241U

== ENCOUNTER 2023-09-04 13:48 | Outpatient (AMB) | payer MEDICARE, SELFPAY ==
[2023-01-10 09:41] VITALS: BP 104/52
--- NOTE | 2023-09-04 13:55 | A.OFFVIS_ITS ---
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 He has been doing very well since the cardioversion. He is back to his better energy level. He also has improved shortness of breath. Denies orthopnea, PND. Takes all his medications. No bleeding issues or neurologic events. No progressive heart failure syndrome. No irregular heartbeat, lightheadedness, syncope. [facility] Medical History Tubular adenoma of colon Atherosclerosis of both carotid arteries Aortic stenosis Exertional angina Paroxysmal atrial fibrillation Diabetes mellitus HTN (hypertension) Sick sinus syndrome (~2013) Cardiac pacemaker in situ (~2013) CAD (coronary artery disease) Surgical History (Updated 09/04/23 @ 14:19 by Hilario Dao MD) Stented coronary artery History of cataract surgery History of tonsillectomy History of appendectomy History of right hip replacement History of cardioversion (~2014) History of left hip replacement (~1998) History of melanoma excision (~2011) History of colonoscopy (~2010) History of cardiac cath (~2017) History of right-sided carotid endarterectomy (~2000) History of pacemaker (~2013) Family History Father No problems noted. Mother Lung cancer Social History Patient Tobacco Use Status: Former Tobacco user Quit Date: 2009 Tobacco use type: Cigarette Cigarette Packs Per Day: 1 Years Smoked: 50 Second Hand Smoke Exposure: No Review of Systems Const Denies chills, Denies fatigue, Denies fever(s), Denies frequent falls, Denies weakness, Denies weight gain and Denies weight loss ENT Reports Normal hearing present and Denies dizziness Card Denies chest pain, Denies leg edema, Denies lightheadedness, Denies palpitations, Denies dyspnea, Denies dyspnea on exertion, Denies orthopnea and Denies other (loss of consciousness) Resp Denies cough, Denies dyspnea and Denies dyspnea on exertion GI Denies hematochezia and Denies change in stool character Musc Denies abnormal gait, Denies muscle weakness, Denies numbness, Denies radiating pain into limb and Denies tingling Neuro Reports Normal hearing present, Denies abnormal gait, Denies dizziness, Denies frequent falls, Denies numbness, Denies tingling and Denies weakness Endo Denies fatigue and Denies palpitations Physical Exam Vital Signs: Last Vital Signs Pulse 70 09/04/23 13:56 BP 122/72 09/04/23 13:56 BMI result Body Mass Index 28.9 Const General: cooperative, healthy appearing and comfortable Orientation/consciousness: oriented to person, oriented to place and oriented to time HEENT Head: Yes normal to inspection Neck Neck: Yes normal visual inspection Carotids: no bruits Chest Chest palpation & inspection: normal inspection of the chest Resp Effort & Inspection: normal respiratory effort and able to speak in complete sentences Auscultation: clear to auscultation bilaterally, no crackles, no rales, no rhonchi and no wheezes Cardio Rate: regular rate Rhythm: regular rhythm Heart sounds: S1 normal heart sound present, S2 normal heart sound present, no click, no gallops and no murmurs Bruits: no carotid bruits Peripheral pulses: Peripheral pulses 2+ throughout GI Inspection: Yes normal to inspection Skin General skin exam: crusts, dry skin and ecchymosis Wounds: no wounds Hair: normal Neuro General: oriented to person, oriented to place and oriented to time Cranial nerves: Yes Normal hearing present Cognition (Neuro): normal cognition Motor exam (neuro): 5/5 motor strength present throughout Extrem Other: venous exam: No significant superficial varicosities or spider telangiectasias, minimal edema General: No clubbing, No cyanosis, Yes edema (1+) and Yes venous stasis dermatitis Psych Appearance: grossly normal Mental Status: mental status grossly normal Speech and movement: Normal speech and movement present Office Procedures Cardiac Device Check Cardiac Device Check Details: [facility] [employer] dual-chamber pacemaker in place. Programmed in DDDR at 70 beats per minute. Atrial pacing thresholds excellent and reprogrammed. Ventricular pacing thresholds are stable. Atrial sensing is adequate. Pacing lead impedance is stable. Battery life is at 99 and half years. No episodes of atrial fibrillation noted [id number] Cardiac Device Check, pacemaker dual lead Procedure code (CPT) selection complete EKG Details: EKG shows AV dual paced rhythm [id number], Complete Assessment & Plan Assessment & Plan (1) Paroxysmal atrial fibrillation: Code(s): I48.0 - Paroxysmal atrial fibrillation Plan: Paroxysmal atrial fibrillation which has remained suppressed on amiodarone therapy with significant improvement in overall symptoms which included fatigue and shortness of breath and heart failure symptoms. This is due to loss of AV synchrony. Has had no recurrent atrial fibrillation/flutter since then. Will continue monitor by pacer telemetry and follow up in the clinic in 3 months time after echocardiogram. Continue amiodarone therapy with significant improvement in quality of life. Will check for amiodarone toxicity on annual basis. Continue full oral anticoagulation, currently on Eliquis 5 mg b.i.d.. Quarterly renal function test should be pursued. (2) (HFpEF) heart failure with preserved ejection fraction: Code(s): I50.30 - Unspecified diastolic (congestive) heart failure Plan: Heart failure preserved ejection fraction with much improved symptoms. Continue current diuretic therapy. Continue rhythm control approach. Daily weight monitoring avoidance of salt loading was discussed. Continue aggressive blood pressure control. Target goal blood pressure less than 130/84. Additional diuretics as need be. Continue maintain activity level as tolerated. (3) S/P TAVR (transcatheter aortic valve replacement): Comment: Status post 29 mm [employer] Evolut, 10/31/2022 Code(s): Z95.2 - Presence of prosthetic heart valve Plan: Status post transcatheter aortic valve replacement, working well at current point time. Follow-up echocardiogram in 3 months time. Continue oral anticoagulation above. Continue aggressive vascular risk factor modification. SBE prophylaxis as per ACC/[place] guidelines. (4) Cardiac pacemaker in situ: Onset Date: ~2013 Comment: ([employer] DCPP - placed 2013 for SSS; generator change 2022) Code(s): Z95.0 - Presence of cardiac pacemaker Plan: Cardiac pacemaker in-situ for sick sinus syndrome. Pacemaker is working well. Reprogrammed for proper function. Will follow up in the clinic in 3 months time. (5) CAD (coronary artery disease): Comment: (08/2017 Cardiac Cath showed severe ostial OM1 disease, severe ostial RPDA disease - not candidate for intervention) Code(s): I25.10 - Atherosclerotic heart disease of [place] coronary artery without angina pectoris Plan: Diffuse vascular disease with CAD with ostial RCA stenting prior to transcatheter aortic valve replacement. Currently doing well. Continue Plavix till October of 2023. Continue full oral anticoagulation long-term. Continue aggressive risk factor modification. Continue high-intensity statin therapy with ezetimibe with target goal LDL closer to 60 mg/dL. Blood pressure is well optimized. Diabetes under your care with goal hemoglobin A1c less than 7%. Encouraged to continue to participate in physical activity as tolerated. Follow up in the clinic in 3 months time, sooner p.r.n.. Greater than 40 minutes was spent in managing his complex care. Coding Level of Care Code Est Pt Level 5 (22170) Diagnoses Paroxysmal atrial fibrillation I48.0 (HFpEF) heart failure with preserved ejection fraction I50.30 S/P TAVR (transcatheter aortic valve replacement) Z95.2 Cardiac pacemaker in situ Z95.0 CAD (coronary artery disease) I25.10 CPT Codes Cardiac Device Check - Cardiac Device 2: [id number] Cardiac Device Check, pacemaker dual lead ([id number]) EKG - CPT: 92531-[id number], Complete ([id number])
[2023-09-04 13:56] VITALS: BP 122/72; PULSE 70; BMI 28.9
== END 2023-09-04 14:17 | disposition home or self-care (01) ==
PROVIDERS: PCP Internal Medicine; Visit Provider Internal Medicine Cardiovascular Disease
DX: I48.0 Paroxysmal atrial fibrillation (principal); I50.30 Unspecified diastolic (congestive) heart failure; Z95.2 Presence of prosthetic heart valve; Z95.0 Presence of cardiac pacemaker; I25.10 Atherosclerotic heart disease of native coronary artery without angina pectoris
CPT/HCPCS: 93280; 99215

== ENCOUNTER → 2023-09-04 13:48 | Outpatient (BNVA) | payer MEDICARE, SELFPAY ==
[2023-01-10 09:41] VITALS: BP 104/52
== END ==
PROVIDERS: PCP Internal Medicine; Visit Provider Internal Medicine Cardiovascular Disease
DX: Z45.018 Encounter for adjustment and management of other part of cardiac pacemaker (principal); I48.0 Paroxysmal atrial fibrillation; I50.30 Unspecified diastolic (congestive) heart failure; I25.10 Atherosclerotic heart disease of native coronary artery without angina pectoris; Z95.2 Presence of prosthetic heart valve
CPT/HCPCS: 93005; 93280; 99212

== ENCOUNTER 2023-10-10 08:27 | Outpatient (AMB) | payer MEDICARE, SELFPAY ==
[2023-01-10 09:41] VITALS: BP 104/52
--- NOTE | 2023-10-10 08:41 | A.OFFVIS_ITS ---
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 Allergies No Known Allergies [No Known Allergies*] Allergy (Verified 10/10/23 08:44) Medication List - Last Reconciled 10/10/23 by Mary Guido NP-C amiodarone 200 mg PO DAILY apixaban (Eliquis) 5 mg PO BID 90 days atorvastatin 40 mg PO DAILY clopidogrel 75 mg PO DAILY ezetimibe (Zetia) 10 mg PO DAILY furosemide 20 mg PO BID 90 days glipizide ER 2.5 mg PO DAILY levothyroxine 50 mcg PO DAILY lisinopril 5 mg PO DAILY metoprolol tartrate 50 mg PO BID nitroglycerin 0.4 mg sublingual TID PRN HPI f/u per NS HPI Details Korey is an 88-year-old male with past medical history of hypertension, diabetes, heart failure with preserved EF, pacemaker in place, paroxysmal atrial fibrillation with cardioversion 05/03/2023 who had recurrent atrial tachycardia noted on remote monitoring 09/28/23 chest been persistent since that time. He now presents for follow-up. Today he states that he has noticed some shortness of breath with activity. He said this symptom had resolved after his cardioversion and was good throughout the winter. More recently he is noticing shortness of breath with walking. No palpitations, lightheadedness, presyncope, syncope, PND, orthopnea or edema. No chest discomfort at rest or with activity. Taking all meds as directed. He tells me he has an appointment on 11/13/2023 to have his top teeth extracted. [facility] Medical History Tubular adenoma of colon Atherosclerosis of both carotid arteries Aortic stenosis Exertional angina Paroxysmal atrial fibrillation Diabetes mellitus HTN (hypertension) Sick sinus syndrome (~2013) Cardiac pacemaker in situ (~2013) CAD (coronary artery disease) Surgical History Stented coronary artery History of cataract surgery History of tonsillectomy History of appendectomy History of right hip replacement History of cardioversion (~2014) History of left hip replacement (~1998) History of melanoma excision (~2011) History of colonoscopy (~2010) History of cardiac cath (~2017) History of right-sided carotid endarterectomy (~2000) History of pacemaker (~2013) Family History Father No problems noted. Mother Lung cancer Social History Patient Tobacco Use Status: Former Tobacco user Quit Date: 2009 Tobacco use type: Cigarette Cigarette Packs Per Day: 1 Years Smoked: 50 Second Hand Smoke Exposure: No Review of Systems Const All systems reviewed & are unremarkable except as noted in HPI and below ENT Denies dizziness Card Denies chest pain, Denies chest pain at rest, Denies chest pain with activity, Denies rapid heart rate, Denies pedal edema, Denies edema, Denies leg edema, Denies lightheadedness, Denies palpitations, Denies dyspnea, Reports dyspnea on exertion and Denies orthopnea Resp Denies cough, Denies dyspnea and Reports dyspnea on exertion GI Denies hematochezia and Denies change in stool character Musc Denies abnormal gait, Denies limited range of motion, Denies muscle cramps, Denies muscle weakness, Denies numbness, Denies radiating pain into limb, Denies stiffness and Denies tingling Neuro Denies abnormal gait, Denies dizziness, Denies numbness and Denies tingling Endo Denies palpitations Physical Exam Vital Signs: Last Vital Signs Pulse 109 H 10/10/23 08:42 BP 114/62 10/10/23 08:42 BMI result Body Mass Index 29.3 Const General: cooperative, healthy appearing, comfortable and no acute distress Orientation/consciousness: patient oriented x3 Neck Neck: Yes normal visual inspection and Yes no JVD Resp Effort & Inspection: normal respiratory effort Auscultation: clear to auscultation bilaterally, no crackles, no rales, no rhonchi and no wheezes Cardio Jugular venous distension: no JVD Rate: regular rate Rhythm: regular rhythm Heart sounds: S1 normal heart sound present, S2 normal heart sound present, no gallops, no murmurs and no rubs Skin General skin exam: no rashes or lesions noted Neuro General: patient oriented x3 Extrem General: Yes normal to inspection and No no pedal edema Psych Appearance: grossly normal Mental Status: mental status grossly normal Speech and movement: Normal speech and movement present Office Procedures EKG Details: Today read by me, ventricular paced rhythm, rate 109 [id number], Complete Assessment & Plan Assessment & Plan (1) Atrial tachycardia: Code(s): I47.19 - Other supraventricular tachycardia Plan: Newer finding of atrial tachycardia as seen on remote monitoring starting 09/28/2023. An EKG done today is showing V paced rhythm, rate 109. Remote interrogation from last evening confirms that atrial tachycardia is continuing. Patient denies any heart palpitations. He is noticing some increased shortness of breath. Case reviewed with Dr. Dao. Continue amiodarone and metoprolol. Will add diltiazem 30 mg b.i.d.. Will plan for cardioversion next week. Continue Eliquis without interruption. Cardiology office visit in 1 month. (2) Atrial flutter: Code(s): I48.92 - Unspecified atrial flutter Plan: History of atrial fibrillation/flutter. He last underwent a cardioversion on 05/03/2023. He is maintained sinus rhythm since that time up until recently. He tells me that his shortness of breath had resolved following the cardioversion and through the winter. He now has recurrent shortness of breath as above. (3) (HFpEF) heart failure with preserved ejection fraction: Code(s): I50.30 - Unspecified diastolic (congestive) heart failure Plan: History of heart failure with preserved EF. Last echocardiogram 11/25/2022 shows EF 59%, grade 3 diastolic dysfunction, moderate biatrial enlargement, bioprosthetic AVR functioning normally, severe mitral annular calcification and [id number] TR. On examination today he does not appear fluid overloaded. Signs and symptoms of heart failure reviewed with him. Continue furosemide 20 mg b.i.d.. Continue metoprolol and lisinopril. (4) Cardiac pacemaker in situ: Onset Date: ~2013 Comment: ([employer] DCPP - placed 2013 for SSS; generator change 2022) Code(s): Z95.0 - Presence of cardiac pacemaker Plan: [facility] dual-chamber pacemaker in place. Last office interrogation 09/04/2023. He has remote monitoring in use. Next office interrogation due February 2024 (5) CAD (coronary artery disease): Comment: (08/2017 Cardiac Cath showed severe ostial OM1 disease, severe ostial RPDA disease - not candidate for intervention) Code(s): I25.10 - Atherosclerotic heart disease of [place] coronary artery without angina pectoris Plan: Known CAD. Stable without any anginal symptoms. Continue with medical management. 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 Patient unclear of providers name. If he requires cardioversion next week then his anticoagulation should not be interrupted for this procedure. Recommend that procedure be postponed for 1 month. If he does not require cardioversion then brief hold of anticoagulation can be done prior to his procedure, 24-48 hours. Plan Time spent on chart review, documentation, interview, assessment, orders Orders: Orders Cardioversion 1 Week I47.19 - Other supraventricular tachycardia, Z79.01 - FDC (current) use of anticoagulants Medications: New diltiazem HCl 30 mg PO BID 60 tabs 3RF Coding Level of Care Code Est Pt Level 4 (63620) Diagnoses Atrial tachycardia I47.19 Atrial flutter I48.92 (HFpEF) heart failure with preserved ejection fraction I50.30 Cardiac pacemaker in situ Z95.0 CAD (coronary artery disease) I25.10 Paroxysmal atrial fibrillation I48.0 Current use of anticoagulant therapy Z79.01 Preop cardiovascular exam Z01.810 CPT Codes EKG - CPT: 42263-[id number], Complete ([id number]) Time Spent (min) 35
[2023-10-10 08:42] VITALS: BP 114/62; PULSE 109; BMI 29.3
== END 2023-10-10 09:44 | disposition home or self-care (01) ==
PROVIDERS: PCP Internal Medicine; Visit Provider Nurse Practitioner Family
DX: I47.19 Other supraventricular tachycardia (principal); I48.92 Unspecified atrial flutter; I50.30 Unspecified diastolic (congestive) heart failure; Z95.0 Presence of cardiac pacemaker; I25.10 Atherosclerotic heart disease of native coronary artery without angina pectoris; I48.0 Paroxysmal atrial fibrillation; Z79.01 Long term (current) use of anticoagulants; Z01.810 Encounter for preprocedural cardiovascular examination
CPT/HCPCS: 93010; 99214

== ENCOUNTER → 2023-10-10 08:27 | Outpatient (BNVA) | payer MEDICARE, SELFPAY ==
[2023-01-10 09:41] VITALS: BP 104/52
== END ==
PROVIDERS: PCP Internal Medicine; Visit Provider Nurse Practitioner Family
DX: Z01.810 Encounter for preprocedural cardiovascular examination (principal); I47.19 Other supraventricular tachycardia; I48.92 Unspecified atrial flutter; I50.30 Unspecified diastolic (congestive) heart failure; I25.10 Atherosclerotic heart disease of native coronary artery without angina pectoris; I48.0 Paroxysmal atrial fibrillation; Z95.0 Presence of cardiac pacemaker; Z79.01 Long term (current) use of anticoagulants
CPT/HCPCS: 93005; 99212

== ENCOUNTER 2023-10-19 08:10 | Day surgery (SDC) | payer MEDICARE, SELFPAY ==
[2023-01-10 09:41] VITALS: BP 104/52
[2023-10-17 12:25] VITALS: BMI 29.3
--- NOTE | 2023-10-19 08:40 | MHC.SHP ---
Pre-Procedural Eval Section A - 24 Hr Update-Section A only Date of Service: 10/19/23 The patient is an INPATIENT: No Changes since office visit: Yes Changes in Medication and Yes Patient answered all questions; No Cold of Flu in the past 2 weeks and No New Medical Problems The patient has been examined within 24 hours of the surgical procedure. The History & Physical has been completed within 30 days and I have reviewed it.: Yes Section B - Complete if H&P > 30 days Chief Complaint: Supraventricular tachycardia, unspecified Allergies: Allergies Allergy/AdvReac Type Severity Reaction Status Date / Time No Known Allergies Allergy Verified 10/10/23 08:44 [No Known Allergies*] Plan I have reviewed the history and physical and performed a pertinent physical examination on my patient. No changes have occurred unless specified. Time Spent With Patient Time: Total time managing care of this patient today ____ minutes.
[2023-10-19 08:49] VITALS: BP 131/79; PULSE 70; RESP 18; TEMP 36.7; O2SAT 97; BMI 29.0
[2023-10-19 09:04] LABS: Glucose, Whole Blood 136 mg/dL (60-115)
[2023-10-19] MEDS: Lactated Ringers 1,000 ML 80 ML IVCONT (09:44)
--- NOTE | 2023-10-19 10:10 | PC.NURSE ---
Dr. Dao updated by charge nurse that patient states symptoms have improved the last few days of not feeling chest palpitations and that patient is v paced consistent at 70.. [facility] interrogator at bedside per his request.
--- NOTE | 2023-10-19 10:24 | HO.ANESPROP2 ---
HPI - Anesthesia Eval Consult details Narrative: for cardioversion [facility] Active Problems Active Problems: All Active Problems (Updated 10/10/23 @ 11:24 by Mary Guido NP-C) Preop cardiovascular exam (Acute) Atrial tachycardia (Acute) (HFpEF) heart failure with preserved ejection fraction (Acute) S/P TAVR (transcatheter aortic valve replacement) (Acute) Atrial flutter (Acute) Bilateral carotid artery stenosis (Acute) Current use of anticoagulant therapy (Acute) Cardiac pacemaker in situ (Acute ~2013) CAD (coronary artery disease) (Acute) Paroxysmal atrial fibrillation (Acute) Atherosclerosis of both carotid arteries (Acute) HTN (hypertension) (Acute) Diabetes mellitus (Acute) Past Medical History Medical History Tubular adenoma of colon Atherosclerosis of both carotid arteries Aortic stenosis Exertional angina Paroxysmal atrial fibrillation Diabetes mellitus HTN (hypertension) Sick sinus syndrome (~2013) Cardiac pacemaker in situ (~2013) CAD (coronary artery disease) Family History Family History Father No problems noted. Mother Lung cancer Family history of problems with anesthesia: No Surgical History Surgical History Stented coronary artery History of cataract surgery History of tonsillectomy History of appendectomy History of right hip replacement History of cardioversion (~2014) History of left hip replacement (~1998) History of melanoma excision (~2011) History of colonoscopy (~2010) History of cardiac cath (~2017) History of right-sided carotid endarterectomy (~2000) History of pacemaker (~2013) History of Problems with Anesthesia: No Social History Social History Patient Tobacco Use Status: Former Tobacco user Quit Date: 2009 Tobacco use type: Cigarette Cigarette Packs Per Day: 1 Years Smoked: 50 Second Hand Smoke Exposure: No Are you DNR?: No Advance Directives: No Advance Directives Information Provided: Yes Nutrition Risks: No Nutritional Risk Meds Allergies Allergy/AdvReac Type Severity Reaction Status Date / Time No Known Allergies Allergy Verified 10/10/23 08:44 [No Known Allergies*] Active Medications: Current Medications Lactated Ringer's (Lr) 1,000 mls @ 80 mls/hr IVCONT .[id number] [facility] Last Admin: 10/19/23 09:44 Dose: 80 mls/hr Sodium Chloride (0.9 % Sodium Chloride Flush 3 Ml Syringe) 3 ml IVFLUSH QSHIFT [facility] Home Medications Medication Instructions Recorded Confirmed Last Taken Type atorvastatin 40 mg tablet 40 mg PO DAILY 12/31/20 10/17/23 05/03/23 History glipizide 2.5 mg tablet, extended 2.5 mg PO DAILY 12/31/20 10/17/23 05/03/23 History release 24 hr nitroglycerin 0.4 mg sublingual 0.4 mg sublingual TID PRN angina 12/31/20 10/17/23 03/01/22 History tablet ezetimibe 10 mg tablet (Zetia) 10 mg PO DAILY 07/05/22 10/17/23 05/03/23 History levothyroxine 50 mcg tablet 50 mcg PO DAILY 01/10/23 10/17/23 10/19/23 History Exam Height,Weight and Vital Signs: Height 5 ft 11 in Weight 94.347 kg Last Vital Signs Temp 98.1 F 10/19/23 08:49 Pulse 70 10/19/23 08:49 Resp 18 10/19/23 08:49 BP 131/79 10/19/23 08:49 Pulse Ox 97 10/19/23 08:49 O2 Del Method Room Air 10/19/23 08:49 Pertinent Lab Results Pertinent Lab Results: Laboratory Tests 10/19/23 09:01 POC Glucose 136 H Airway Mallampati Class: I TM Dist: >3cm Neck ROM: Full Loose/Missing/Broken Teeth: Yes and Upper Heart: aflutter Lungs: ok Assessment and Plan Assessment Anesthesia Assessment: Anesthesia Plan Discussed and Chart Reviewed Final Anesthetic Review Family History of Problems with Anesthesia: No History of Problems with Anesthesia: No NPO: Yes ASA Class: III Final Preanesthetic Review: No Changes in Pt Med Stat, Meds/Allgs Chart Reviewed, Consent Obtained/Reviewed and Anes Risks/Benef Reviewed Patient Risk: Intermediate Procedure Risk: Intermediate Anesthetic Plan Anesthetic Plan: MAC: and Agree w/ Assess. and Plan Disposition: Standard PACU
[2023-10-19 10:53] VITALS: BP 108/61; PULSE 70; RESP 15; TEMP 36.2; O2SAT 96
--- NOTE | 2023-10-19 10:57 | ECG_ITS ---
Test Reason : S/P CARDIOVERSION Blood Pressure : / mmHG Vent. Rate : 070 BPM Atrial Rate : 070 BPM P-R Int : 244 ms QRS Dur : 176 ms QT Int : 478 ms P-R-T Axes : 079 -83 097 degrees QTc Int : 516 ms AV dual-paced rhythm with prolonged AV conduction Abnormal ECG When compared with ECG of 03-MAY-2023 12:47, No significant change was found Referred By: Hilario Dao Electronically Signed By:HILARIO DAO MD
--- NOTE | 2023-10-19 10:57 | HO.CARDIVERS ---
Cardioversion Procedure Note Cardioversion Date of Procedure: Today Ordering Provider: Myself Performing Provider: Myself Indication for Procedure: Recurrent persistent symptomatic atrial flutter Pre-Op Diagnosis: Same Post-Op Diagnosis: No Performed with Transesophageal Echo: No Consent: Verbal and Written consent was obtained from the patient before starting. The patient was made aware of the risk of synchronized cardioversion including benefits and alternatives Procedure: After consent obtained, cardioversion pads were attached and the patient was sedated by the anesthesia team. Once adequate sedation achieved, 200 joules of biphasic synchronized energy was then delivered in anteroposterior configuration. Patient converted to atrial paced rhythm. Pacemaker was interrogated at bedside. Initial prior to cardioversion had atrial flutter with ventricular pacing. Post cardioversion a paced V paced rhythm was noted. Atrial sensing could not be checked to heart rate as low as 40 beats per minute. Pacing lead impedance is stable. Atrial pacing thresholds adequate. Complications: None Impression: Successful conversion Recommendations: 1. Continue amiodarone, metoprolol and Cardizem 2. Continue full oral anticoagulation 3. Follow up in the office in 4 weeks time. 4. Electrophysiology consultation
[2023-10-19 11:08] VITALS: BP 115/69; PULSE 69; RESP 16; O2SAT 96
[2023-10-19 11:24] VITALS: BP 123/60; PULSE 70; RESP 16; TEMP 36.2; O2SAT 96
--- NOTE | 2023-10-20 10:53 | HO.POSTANES ---
Post Anesthesia Evaluation Post Anesthesia Evaluation Date of Service: 10/20/23 Anesthesia: Monitored Mental Status: Awake Pain Control: Satisfactory Nausea/Vomiting: None Hydration: Adequate Anesthesia-Related Issues: No Anes. Related Issues
== END 2023-10-19 12:08 | disposition home or self-care (01) ==
PROVIDERS: PCP Internal Medicine; Visit Provider Internal Medicine Cardiovascular Disease
PROC: 5A2204Z Restoration of Cardiac Rhythm, Single (ICD-10-PCS; principal; 2023-10-19 10:00)
DX: I47.10 Supraventricular tachycardia, unspecified (principal); I48.92 Unspecified atrial flutter; Z79.01 Long term (current) use of anticoagulants; I10 Essential (primary) hypertension; E11.9 Type 2 diabetes mellitus without complications; Z79.84 Long term (current) use of oral hypoglycemic drugs
CPT/HCPCS: 82947; 92960; 93005; J2704

== ENCOUNTER → 2023-10-19 08:10 | Outpatient (BNV) | payer MEDICARE, SELFPAY ==
[2023-01-10 09:41] VITALS: BP 104/52
== END ==
PROVIDERS: PCP Internal Medicine; Visit Provider Internal Medicine Cardiovascular Disease
DX: I48.92 Unspecified atrial flutter (principal)
CPT/HCPCS: 92960; 93010

== ENCOUNTER 2023-11-07 13:22 | Outpatient (AMB) | payer MEDICARE, SELFPAY ==
[2023-01-10 09:41] VITALS: BP 104/52
--- NOTE | 2023-11-07 13:27 | MHC.OFFVIS ---
Intake Vital Signs 11/07/23 13:28 Height 5 ft 11 in Weight 201 lb 0.985 oz BMI 28.0 BP 80/52 L Blood Pressure Location Lt brachial Position Sitting Pulse 70 Pulse Source Monitor Intake Visit Reasons: 1 mth f/up Assurance Analyst Required: No Allergies No Known Allergies [No Known Allergies*] Allergy (Verified 11/07/23 13:31) Medication List - Last Reconciled 11/07/23 by Mary Guido NP-C amiodarone 200 mg PO DAILY apixaban (Eliquis) 5 mg PO BID 90 days atorvastatin 40 mg PO DAILY clopidogrel 75 mg PO DAILY diltiazem HCl 30 mg PO BID furosemide 20 mg PO BID 90 days glipizide ER 2.5 mg PO DAILY levothyroxine 50 mcg PO DAILY lisinopril 5 mg PO DAILY metoprolol tartrate 50 mg PO BID nitroglycerin 0.4 mg sublingual TID PRN HPI 1 mth f/up HPI Details Korey is an 88-year-old male past medical history of hypertension, diabetes, heart failure with preserved EF, pacemaker, aortic stenosis status post TAVR, paroxysmal AFib with prior cardioversion and recurrent atrial tachycardia with recent repeat cardioversion who presents for follow-up. Today he reports that he continues to have shortness of breath with activity following his cardioversion. He said overall he feels well and is not bothered by it. He denies any chest discomfort, heart palpitations, lightheadedness, presyncope, syncope, PND, orthopnea or edema. He is taking all his meds as directed. He is still scheduled for his tooth extraction on 11/13/2023. [facility] Medical History Tubular adenoma of colon Atherosclerosis of both carotid arteries Aortic stenosis Exertional angina Paroxysmal atrial fibrillation Diabetes mellitus HTN (hypertension) Sick sinus syndrome (~2013) Cardiac pacemaker in situ (~2013) CAD (coronary artery disease) Surgical History Stented coronary artery History of cataract surgery History of tonsillectomy History of appendectomy History of right hip replacement History of cardioversion (~2014) History of left hip replacement (~1998) History of melanoma excision (~2011) History of colonoscopy (~2010) History of cardiac cath (~2017) History of right-sided carotid endarterectomy (~2000) History of pacemaker (~2013) Family History Father No problems noted. Mother Lung cancer Social History Patient Tobacco Use Status: Former Tobacco user Quit Date: 2009 Tobacco use type: Cigarette Cigarette Packs Per Day: 1 Years Smoked: 50 Second Hand Smoke Exposure: No Review of Systems Const All systems reviewed & are unremarkable except as noted in HPI and below ENT Denies dizziness Card Denies chest pain, Denies chest pain at rest, Denies chest pain with activity, Denies rapid heart rate, Denies pedal edema, Denies edema, Denies leg edema, Denies lightheadedness, Denies palpitations, Denies dyspnea, Reports dyspnea on exertion and Denies orthopnea Resp Denies cough, Denies dyspnea and Reports dyspnea on exertion GI Denies hematochezia and Denies change in stool character Musc Denies abnormal gait, Denies limited range of motion, Denies muscle cramps, Denies muscle weakness, Denies numbness, Denies radiating pain into limb, Denies stiffness and Denies tingling Neuro Denies abnormal gait, Denies dizziness, Denies numbness and Denies tingling Endo Denies palpitations Physical Exam Vital Signs: Last Vital Signs Pulse 70 11/07/23 13:28 BP 80/52 L 11/07/23 13:28 BMI result Body Mass Index 28.0 Const General: cooperative, healthy appearing, comfortable and no acute distress Orientation/consciousness: patient oriented x3 Neck Neck: Yes normal visual inspection and Yes no JVD Resp Effort & Inspection: normal respiratory effort Auscultation: clear to auscultation bilaterally, no crackles, no rales, no rhonchi and no wheezes Cardio Jugular venous distension: no JVD Rate: regular rate Rhythm: regular rhythm Heart sounds: S1 normal heart sound present, S2 normal heart sound present, no murmurs and no rubs Neuro General: patient oriented x3 Extrem General: Yes normal to inspection, No no pedal edema and No calf tenderness Psych Appearance: grossly normal Mental Status: mental status grossly normal Speech and movement: Normal speech and movement present Office Procedures EKG Details: Today, read by me, a/V dual paced rhythm with prolonged AV conduction, rate 70, QTC falsely prolonged at 505 milliseconds [id number], Complete Assessment & Plan Assessment & Plan (1) Atrial tachycardia: Code(s): I47.19 - Other supraventricular tachycardia Plan: Newer finding of atrial tachycardia as seen on remote monitoring starting 09/28/2023. An EKG done last visit showed V paced rhythm, rate 109. Patient denies any heart palpitations. He was noticing some increased shortness of breath. He was continued on amiodarone and metoprolol. Low-dose diltiazem 30 mg b.i.d. was added. He underwent a cardioversion on 10/19/2023. His remote device monitoring has not alerted for atrial tachycardia since that time. An EKG done in the office today shows a/V paced rhythm, rate 70. He does have some ongoing shortness of breath with activity but states it is not bothersome to him. He is hypotensive, asymptomatic. Will need to stop the diltiazem. Continue amiodarone and metoprolol. Continue Eliquis without interruption. Will continue to follow remote device monitoring. Will check labs for amiodarone monitoring. Cardiology office visit in 3 months, sooner if needed. (2) Atrial flutter: Code(s): I48.92 - Unspecified atrial flutter Plan: History of atrial fibrillation/flutter. He last underwent a cardioversion on 05/03/2023 for this rhythm. He is maintained sinus rhythm since that time up until recently, then had atrial tach as above. (3) (HFpEF) heart failure with preserved ejection fraction: Code(s): I50.30 - Unspecified diastolic (congestive) heart failure Plan: History of heart failure with preserved EF. Last echocardiogram 11/25/2022 shows EF 59%, grade 3 diastolic dysfunction, moderate biatrial enlargement, bioprosthetic AVR functioning normally, severe mitral annular calcification and [id number] TR. On examination today he does not appear fluid overloaded. Signs and symptoms of heart failure reviewed with him. Continue furosemide 20 mg b.i.d.. Continue metoprolol and lisinopril. Will update echo 1 year from last. (4) Cardiac pacemaker in situ: Onset Date: ~2013 Comment: ([employer] DCPP - placed 2013 for SSS; generator change 2022) Code(s): Z95.0 - Presence of cardiac pacemaker Plan: [facility] dual-chamber pacemaker in place. Last office interrogation 09/04/2023. He has remote monitoring in use. Next office interrogation due February 2024 -can be done by Dr. Dao next visit (5) CAD (coronary artery disease): Comment: (08/2017 Cardiac Cath showed severe ostial OM1 disease, severe ostial RPDA disease - not candidate for intervention) Code(s): I25.10 - Atherosclerotic heart disease of [place] coronary artery without angina pectoris Plan: Known CAD. Stable without any anginal symptoms. Continue with medical management. (6) Current use of anticoagulant therapy: Comment: (on Eliquis) Code(s): Z79.01 - intermediate manager (current) use of anticoagulants Plan: On Eliquis for anticoagulation. No bleeding issues reported (7) Preop cardiovascular exam: Code(s): Z01.810 - Encounter for preprocedural cardiovascular examination Plan: Preop for tooth extraction, 11 upper teeth in the office on 11/13/2023. Dr. Byrd in [place]. Eliquis can not be interrupted for this procedure. Patient had recent cardioversion. Plavix can be held up to 5 days. Endocarditis prophylaxis needed. Call/consult Cardiology if needed. - will have assistant chief nursing officer call this provider and relay this information. (8) S/P TAVR (transcatheter aortic valve replacement): Comment: Status post 29 mm [employer] Evolut, 10/31/2022 Code(s): Z95.2 - Presence of prosthetic heart valve Plan: TAVR done 10/31/2022. Last echo shows device is functioning normally. No murmur on exam. Endocarditis prophylaxis for dental work. Will repeat echo . (9) Hypotension: Code(s): I95.9 - Hypotension, unspecified Plan: Blood pressure low today. Initially 80/52. Recheck done by me 76/50 sitting then 80/52 standing completely asymptomatic. He states he was told his blood pressure was low at cardiac rehab recently. Will have him stop the diltiazem, continue metoprolol. continue lisinopril as he has history of diabetes. Further blood pressures will be checked at cardiac rehab. Instructed him to call if he is having any issues with lightheadedness. Instructed to maintain good hydration, use caution with position changes. ED care if ever needed. Plan Time spent on chart review, documentation, interview, assessment, orders Orders: Orders CA echo transthoracic complete Today Z95.2 - Presence of prosthetic heart valve Comprehensive Met. Panel Today I50.30 - Unspecified diastolic (congestive) heart failure Lipid Panel Today I25.10 - Atherosclerotic heart disease of [place] coronary artery without angina pectoris TSH reflex Free T4 Today I47.19 - Other supraventricular tachycardia Medications: New amoxicillin Take 4 capsules 1 hour prior to dental work. 2,000 mg (4 x 500 mg) PO ONCE 1 day 4 caps 3RF Refilled amiodarone 200 mg PO DAILY 90 tabs 3RF apixaban (Eliquis) 5 mg PO BID 90 days 180 tabs 3RF Discontinued diltiazem HCl Discontinued Reason: Doctor's Order 30 mg PO BID 60 tabs 3RF Coding Level of Care Code Est Pt Level 4 (98550) Diagnoses Atrial tachycardia I47.19 Atrial flutter I48.92 (HFpEF) heart failure with preserved ejection fraction I50.30 Cardiac pacemaker in situ Z95.0 CAD (coronary artery disease) I25.10 Current use of anticoagulant therapy Z79.01 Preop cardiovascular exam Z01.810 S/P TAVR (transcatheter aortic valve replacement) Z95.2 Hypotension I95.9 CPT Codes EKG - CPT: [id number], Complete ([id number]) Time Spent (min) 30
[2023-11-07 13:28] VITALS: BP 80/52; PULSE 70; BMI 28.0
== END 2023-11-07 14:19 | disposition home or self-care (01) ==
PROVIDERS: PCP Internal Medicine; Visit Provider Nurse Practitioner Family
DX: I47.19 Other supraventricular tachycardia (principal); I48.92 Unspecified atrial flutter; I50.30 Unspecified diastolic (congestive) heart failure; Z95.0 Presence of cardiac pacemaker; I25.10 Atherosclerotic heart disease of native coronary artery without angina pectoris; Z79.01 Long term (current) use of anticoagulants; Z01.810 Encounter for preprocedural cardiovascular examination; Z95.2 Presence of prosthetic heart valve; I95.9 Hypotension, unspecified
CPT/HCPCS: 93010; 99214

== ENCOUNTER → 2023-11-07 13:22 | Outpatient (BNVA) | payer MEDICARE, SELFPAY ==
[2023-01-10 09:41] VITALS: BP 104/52
== END ==
PROVIDERS: PCP Internal Medicine; Visit Provider Nurse Practitioner Family
DX: Z01.810 Encounter for preprocedural cardiovascular examination (principal); I47.19 Other supraventricular tachycardia; I48.92 Unspecified atrial flutter; I50.30 Unspecified diastolic (congestive) heart failure; I25.10 Atherosclerotic heart disease of native coronary artery without angina pectoris; I95.9 Hypotension, unspecified; Z95.2 Presence of prosthetic heart valve; Z95.0 Presence of cardiac pacemaker; Z79.01 Long term (current) use of anticoagulants
CPT/HCPCS: 93005; 99212

== ENCOUNTER → 2023-11-15 13:37 | Outpatient (REF) | payer MEDICARE, SELFPAY ==
[2023-01-10 09:41] VITALS: BP 104/52
--- NOTE | 2023-11-15 13:42 | CA_ITS ---
Transthoracic Echocardiogram Patient (Last, First, Middle): Korey Wilder T Gender: Male Date of : 1935 Age: 88 Procedure Date: 11/15/2023 Procedure Type: Transthoracic Echocardiogram Location: OP Height: 182.88 cm Weight: 92.99 kg BSA: 2.15 m2 Heart Rate: bpm BP: 118 / 60 mmHg Legal Recovery Specialist: Referring MD: Mary Guido COAL SAMPLE TESTER-[place] Director Of Teacher Education: Hilario Dao MD Symptoms: Z95.2 - Presence of prosthetic heart valve TAVR Study Quality: Good ECG Rhythm: Ventriculary paced rhythm Conclusions: - 1. Normal LV ejection fraction 55-60% with pseudonormal filling pattern 2. Severely dilated left atrium 3. Normally function bioprosthetic aortic valve with mean gradient of 8 mmHg 4. Normal RV systolic pressure 5. Mildly dilated ascending aorta at 3.8 cm 6. No gross pericardial effusion Findings Left Ventricle Normal left ventricular size, thickness, and systolic function. The visually estimated ejection fraction is between 55-60%. Spectral Doppler is indicative of a pseudonormal filling pattern. Right Ventricle Moderately increased right ventricular cavity size. There is normal right ventricular systolic function. There is a pacemaker wire seen in the right ventricle. Atria The left atrium is severely dilated. There is no evidence of interatrial shunt. The right atrium is moderately dilated. Aortic Valve A bioprosthetic aortic valve is present. The prosthetic aortic valve appears to be functioning normally. The mean gradient is 8 mmHg. There is trace (trivial) aortic valve regurgitation. the bioprosthetic valve is well seated with no abnormal rocking motion Mitral Valve There is moderate anterior and severe posterior mitral leaflet thickening. There is mild anterior mitral annular calcification. There is severe mitral annular calcification. There is mild mitral valve regurgitation. There is no mitral valve stenosis. Pulmonic Valve The pulmonic valve was not well visualized. Tricuspid Valve Likely normal tricuspid valve structure and function. There is moderate tricuspid valve regurgitation. The right ventricular systolic pressure is normal. The right ventricular systolic pressure is 31 mmHg. Normal right atrial pressure. There is no evidence of pulmonary hypertension. Great Vessels The aorta was not well visualized. The pulmonary artery was not well visualized. There is mild dilatation of the ascending aorta measuring 3.80 cm. Venous The inferior vena cava is normal in size and collapses greater than 50% with inspiration. Pericardium/Pleural There is no evidence of pericardial effusion. Measurements 2D Linear Measurements IVSd: 1.03 0.6-0.9/0.6-1.0 cm LVIDd: 5.17 3.9-5.3/4.2-5.9 cm LVIDd Index: 2.40 2.4-3.2/2.2-3.1 cm/m2 LVIDs: 3.20 2.0-3.6 cm LVPWd: 1.11 0.7-1.1 cm Ao Root: 2.80 2.1-3.5 cm LA Diam: 5.10 2.7-3.8/3.0-4.0 cm LAIDs Index: 2.37 1.5-2.3 cm/m2 LV Mass: 262.53 67-162/88-224 g LV Mass Index: 122.11 43-95/49-115 g/m2 LVOT Diam: 1.90 3.0+(-)1.3 cm 2D Systolic Function EF 4C: 59.60 >55% EF 2C: 58.30 >55% EF BiP: 57.10 >55% Mitral Valve MV VTI: 0.36 MV Pk Audi: 1.29 MV Mn Audi: 0.65 MV Pk Grad: 7.00 MV Mn Grad: 2.00 MV Pk E: 1.26 MV Decel Time: 256.00 E'Lateral: 7.83 E'Medial: 7.83 E/E' Med: 16.10 E/E' Lat: 16.10 PHT: 75.00 MVA PHT: 2.93 MVA Continuity: 1.34 Decel [place]: 4.90 Aortic Valve AoV Pk Audi: 2.08 AoV Mn Audi: 1.28 AoV VTI: 0.44 AoV Pk Grad: 17.00 Aov Mn Grad: 8.00 DONOVAN Cont.VTI: 1.10 LVOT LVOT Pk Audi: 0.74 LVOT Mn Audi: 0.49 LVOT VTI: 0.17 LVOT Pk Grad: 2.00 LVOT Mn Grad: 1.00 LVOT Diam: 1.90 LVOT Area: 2.84 Diastolic Function MV Pk E: 1.26 E'Medial: 7.83 E/E' Med: 16.10 E' Laterial: 7.83 E/E' Lat: 16.10 Right Ventricle TAPSE (mm): 27.00 TVS' Audi: 12.00 Tricuspid Valve TR Pk Audi: 2.65 TR Pk Grad: 28.00 RA Press: 3.00 RVSP: 31.00 Great Vessels Aorta Ao Root-2D: 2.80 2.0-3.7 cm Ao Asc: 3.80 2.1-3.4 cm Pulmonary Valve PV Pk Audi: 1.00 Peak PV Grad: 4.00 Updated in Other Vendor System with Status of Final Hilario Dao MD electronically signed on 11/16/2023 11:47:57 AM with status of Final
== END ==
LOC: HO.CARD 13:37
PROVIDERS: PCP Internal Medicine; Visit Provider Internal Medicine Cardiovascular Disease
DX: Z95.2 Presence of prosthetic heart valve (principal); Z95.4 Presence of other heart-valve replacement
CPT/HCPCS: 93306

== ENCOUNTER → 2023-11-15 13:42 | Outpatient (BNV) | payer MEDICARE, SELFPAY ==
[2023-01-10 09:41] VITALS: BP 104/52
== END ==
PROVIDERS: PCP Internal Medicine; Visit Provider Internal Medicine Cardiovascular Disease
DX: I36.1 Nonrheumatic tricuspid (valve) insufficiency (principal); I34.0 Nonrheumatic mitral (valve) insufficiency; I34.81 Nonrheumatic mitral (valve) annulus calcification; Z95.3 Presence of xenogenic heart valve
CPT/HCPCS: 93306

== ENCOUNTER → 2023-11-15 23:59 | Outpatient (BNV) | payer MEDICARE, SELFPAY ==
[2023-01-10 09:41] VITALS: BP 104/52
--- NOTE | 2023-11-23 15:48 | A.OFFVIS_ITS ---
Intake Visit Reasons: Remote device check- [facility] Allergies No Known Allergies [No Known Allergies*] Allergy (Verified 11/07/23 13:31) [facility] Medical History Tubular adenoma of colon Atherosclerosis of both carotid arteries Aortic stenosis Exertional angina Paroxysmal atrial fibrillation Diabetes mellitus HTN (hypertension) Sick sinus syndrome (~2013) Cardiac pacemaker in situ (~2013) CAD (coronary artery disease) Surgical History Stented coronary artery History of cataract surgery History of tonsillectomy History of appendectomy History of right hip replacement History of cardioversion (~2014) History of left hip replacement (~1998) History of melanoma excision (~2011) History of colonoscopy (~2010) History of cardiac cath (~2017) History of right-sided carotid endarterectomy (~2000) History of pacemaker (~2013) Family History Father No problems noted. Mother Lung cancer Social History Patient Tobacco Use Status: Former Tobacco user Quit Date: 2009 Tobacco use type: Cigarette Cigarette Packs Per Day: 1 Years Smoked: 50 Second Hand Smoke Exposure: No Office Procedures Cardiac Device Check Cardiac Device Check Details: Remote pacemaker report generated 11/15/2023. Pacemaker function is adequate. Total burden of atrial fibrillation at 5.7% [id number] Cardiac Device Interrogation, pacemaker Procedure code (CPT) selection complete Assessment & Plan Assessment & Plan (1) Cardiac pacemaker in situ: Onset Date: ~2013 Comment: ([employer] DCPP - placed 2013 for SSS; generator change 2022) Code(s): Z95.0 - Presence of cardiac pacemaker Category: Medical Plan: See above
== END ==
PROVIDERS: PCP Internal Medicine; Visit Provider Internal Medicine Cardiovascular Disease
DX: I48.91 Unspecified atrial fibrillation (principal); Z95.0 Presence of cardiac pacemaker
CPT/HCPCS: 93294

== ENCOUNTER → 2024-02-14 23:59 | Outpatient (BNV) | payer MEDICARE, SELFPAY ==
[2023-01-10 09:41] VITALS: BP 104/52
--- NOTE | 2024-02-21 14:35 | MHC.OFFVIS ---
Intake Visit Reasons: Remote device check- [facility] Allergies No Known Allergies [No Known Allergies*] Allergy (Verified 11/07/23 13:31) [facility] Medical History Tubular adenoma of colon Atherosclerosis of both carotid arteries Aortic stenosis Exertional angina Paroxysmal atrial fibrillation Diabetes mellitus HTN (hypertension) Sick sinus syndrome (~2013) Cardiac pacemaker in situ (~2013) CAD (coronary artery disease) Surgical History Stented coronary artery History of cataract surgery History of tonsillectomy History of appendectomy History of right hip replacement History of cardioversion (~2014) History of left hip replacement (~1998) History of melanoma excision (~2011) History of colonoscopy (~2010) History of cardiac cath (~2017) History of right-sided carotid endarterectomy (~2000) History of pacemaker (~2013) Family History Father No problems noted. Mother Lung cancer Social History Patient Tobacco Use Status: Former Tobacco user Tobacco use type: Cigarette Cigarette Packs Per Day: 1 Years Smoked: 50 Second Hand Smoke Exposure: No Office Procedures Cardiac Device Check Cardiac Device Check Details: Remote pacemaker report generated 02/14/2024. Pacemaker function is adequate. Ventricularly pacer dependent. No episodes of atrial fibrillation noted [id number] Cardiac Device Interrogation, pacemaker Procedure code (CPT) selection complete Assessment & Plan Assessment & Plan (1) Cardiac pacemaker in situ: Onset Date: ~2013 Comment: ([employer] DCPP - placed 2013 for SSS; generator change 2022) Code(s): Z95.0 - Presence of cardiac pacemaker Category: Medical Plan: See above Coding Level of Care Code Procedure Only Diagnoses Cardiac pacemaker in situ Z95.0 CPT Codes Cardiac Device Check - Cardiac Device 12: [id number] Cardiac Device Interrogation, pacemaker ([id number])
== END ==
PROVIDERS: PCP Internal Medicine; Visit Provider Internal Medicine Cardiovascular Disease
DX: I49.5 Sick sinus syndrome (principal); Z95.0 Presence of cardiac pacemaker
CPT/HCPCS: 93294

== ENCOUNTER 2024-02-15 09:17 | Outpatient (AMB) | payer MEDICARE, SELFPAY ==
[2023-01-10 09:41] VITALS: BP 104/52
--- NOTE | 2024-02-15 09:24 | A.OFFVIS_ITS ---
Vital Signs 02/15/24 09:26 Height 5 ft 11 in Weight 189 lb 9.561 oz BMI 26.4 BP 118/72 Blood Pressure Location Lt brachial Position Sitting Pulse 70 Intake Visit Reasons: 3 mth f/up Intake Note: 3 month follow-up with ekg and [facility] check hearts doing good Rehabilitation Services Manager Required: No Allergies No Known Allergies [No Known Allergies*] Allergy (Verified 11/07/23 13:31) Medication List - Last Reconciled 02/15/24 by Hilario Dao MD amiodarone 200 mg PO DAILY amoxicillin 2,000 mg (4 x 500 mg) PO ONCE 1 day apixaban (Eliquis) 5 mg PO BID 90 days atorvastatin 40 mg PO DAILY clopidogrel 75 mg PO DAILY 90 days furosemide 20 mg PO BID 90 days glipizide ER 2.5 mg PO DAILY levothyroxine 50 mcg PO DAILY lisinopril 2.5 mg PO DAILY 30 days metoprolol tartrate 50 mg PO BID nitroglycerin 0.4 mg sublingual TID PRN HPI Comments Details: Korey comes for follow-up. He continues to have exertional shortness of breath but much better since the cardioversion. He has been having no symptoms of orthopnea, PND, leg edema. He denies any prolonged palpitation irregular heartbeat. No bleeding issues or neurologic events. No exertional chest pain. No lightheadedness, syncope. Takes all his medications regularly. [facility] Medical History Tubular adenoma of colon Atherosclerosis of both carotid arteries Aortic stenosis Exertional angina Paroxysmal atrial fibrillation Diabetes mellitus HTN (hypertension) Sick sinus syndrome (~2013) Cardiac pacemaker in situ (~2013) CAD (coronary artery disease) Surgical History Stented coronary artery History of cataract surgery History of tonsillectomy History of appendectomy History of right hip replacement History of cardioversion (~2014) History of left hip replacement (~1998) History of melanoma excision (~2011) History of colonoscopy (~2010) History of cardiac cath (~2017) History of right-sided carotid endarterectomy (~2000) History of pacemaker (~2013) Family History Father No problems noted. Mother Lung cancer Social History Patient Tobacco Use Status: Former Tobacco user Tobacco use type: Cigarette Cigarette Packs Per Day: 1 Years Smoked: 50 Second Hand Smoke Exposure: No Review of Systems Const Denies chills, Denies fatigue, Denies fever(s), Denies frequent falls, Denies weakness, Denies weight gain and Denies weight loss ENT Denies dizziness Card Denies chest pain, Denies leg edema, Denies lightheadedness, Denies palpitations, Denies dyspnea, Denies dyspnea on exertion, Denies orthopnea and Denies other (loss of consciousness) Resp Denies cough, Denies dyspnea and Denies dyspnea on exertion GI Denies hematochezia and Denies change in stool character Musc Denies abnormal gait, Denies muscle weakness, Denies numbness, Denies radiating pain into limb and Denies tingling Neuro Denies abnormal gait, Denies dizziness, Denies frequent falls, Denies numbness, Denies tingling and Denies weakness Endo Denies fatigue and Denies palpitations Physical Exam Vital Signs: Last Vital Signs Pulse 70 02/15/24 09:26 BP 118/72 02/15/24 09:26 BMI result Body Mass Index 26.4 Const General: cooperative, healthy appearing, comfortable and no acute distress Orientation/consciousness: patient oriented x3 Neck Neck: Yes normal visual inspection and Yes no JVD Resp Effort & Inspection: normal respiratory effort Auscultation: clear to auscultation bilaterally, no crackles, no rales, no rhonchi and no wheezes Cardio Jugular venous distension: no JVD Rate: regular rate Rhythm: regular rhythm Heart sounds: S1 normal heart sound present, S2 normal heart sound present, no murmurs and no rubs Neuro General: patient oriented x3 Extrem General: Yes normal to inspection, No no pedal edema and No calf tenderness Psych Appearance: grossly normal Mental Status: mental status grossly normal Speech and movement: Normal speech and movement present Office Procedures Cardiac Device Check Cardiac Device Check Details: Dual-chamber [facility] pacemaker in place. Programmed in DDDR at 70 beats per minute. Atrial pacing 97% time. Ventricular pacing 88% of the time. Atrial ventricular capture thresholds excellent. Ventricular sensing is adequate. Atrial sensing could not be checked. Pacing lead impedance is stable. Battery life is at about 8 and half years. No arrhythmias noted [id number] Cardiac Device Check, pacemaker dual lead Procedure code (CPT) selection complete EKG Details: EKG shows AV dual paced rhythm [id number], Complete Assessment & Plan Assessment & Plan (1) (HFpEF) heart failure with preserved ejection fraction: Code(s): I50.30 - Unspecified diastolic (congestive) heart failure Category: Medical Plan: Heart failure preserved ejection fraction, clinically euvolemic and well compensated current diuretic dose and maintenance of rhythm. He is done well with rhythm control approach and on current diuretic dose. Daily weight monitoring avoidance of salt loading was discussed. Continues to exertional shortness of breath related to his diastolic dysfunction and deconditioning. Encouraged to continue to participate in physical activity as tolerated. Additional diuretics as need be. Will follow-up in 3 months time. (2) S/P TAVR (transcatheter aortic valve replacement): Comment: Status post 29 mm Medtronic Evolut, 10/31/2022 Code(s): Z95.2 - Presence of prosthetic heart valve Category: Surgical Plan: Status post transcatheter aortic valve replacement with normally functioning bio prosthetic aortic valve. Continue monitoring clinically and by echocardiogram on annual basis. SBE prophylaxis as per ACC/[place] guidelines. Continue oral anticoagulation therapy as above. (3) CAD (coronary artery disease): Comment: (08/2017 Cardiac Cath showed severe ostial OM1 disease, severe ostial RPDA disease - not candidate for intervention) Code(s): I25.10 - Atherosclerotic heart disease of [place] coronary artery without angina pectoris Category: Medical Plan: CAD as well as carotid disease. Currently stable without any symptoms of angina. Continue current metoprolol therapy. He has not having any symptoms of angina. Continue high-intensity statin therapy. Target goal LDL less than 70 mg/dL. Continue aggressive blood pressure control which is currently well optimized. Target goal blood pressure less than 130/84. Low-salt diet was discussed. (4) Paroxysmal atrial fibrillation: Code(s): I48.0 - Paroxysmal atrial fibrillation Category: Medical Plan: Paroxysmal atrial fibrillation which has remained suppressed now after it. Cardioversion including atrial tachycardia which has remained suppressed with change in pacing rate as well as amiodarone and metoprolol therapy. Avoidance of stimulants was discussed advised to call me with any new symptoms. Will check BNP today. If creatinine is above 1.5 his Eliquis dose should be changed to 2.5 mg b.i.d.. This was discussed with him. (5) Cardiac pacemaker in situ: Onset Date: ~2013 Comment: ([facility] [employer] DCPP - placed 2013 for SSS; generator change 2022) Code(s): Z95.0 - Presence of cardiac pacemaker Category: Medical Plan: Cardiac pacemaker in-situ, working well. Reprogrammed for adequate function. Will follow in the clinic in 3 months time. Follow up in the clinic in 3 months time. Greater than 45 minutes was spent in managing his complex care Orders: Orders B Type Natriuretic Peptide Today I50.30 - Unspecified diastolic (congestive) heart failure Basic Metabolic Panel Today I50.30 - Unspecified diastolic (congestive) heart failure Complete Blood Count no Diff Today I50.30 - Unspecified diastolic (congestive) heart failure Coding Level of Care Code Est Pt Level 5 (18258) Diagnoses (HFpEF) heart failure with preserved ejection fraction I50.30 S/P TAVR (transcatheter aortic valve replacement) Z95.2 CAD (coronary artery disease) I25.10 Paroxysmal atrial fibrillation I48.0 Cardiac pacemaker in situ Z95.0 CPT Codes Cardiac Device Check - Cardiac Device 2: [id number] Cardiac Device Check, pacemaker dual lead ([id number]) EKG - CPT: 47619-[id number], Complete ([id number])
[2024-02-15 09:26] VITALS: BP 118/72; PULSE 70; BMI 26.4
== END 2024-02-15 09:53 | disposition home or self-care (01) ==
PROVIDERS: PCP Internal Medicine; Visit Provider Internal Medicine Cardiovascular Disease
DX: I50.30 Unspecified diastolic (congestive) heart failure (principal); Z95.2 Presence of prosthetic heart valve; I25.10 Atherosclerotic heart disease of native coronary artery without angina pectoris; I48.0 Paroxysmal atrial fibrillation; Z95.0 Presence of cardiac pacemaker
CPT/HCPCS: 93010; 93280; 99215

== ENCOUNTER 2024-02-15 09:17 | Outpatient (REF) | payer MEDICARE, SELFPAY ==
[2023-01-10 09:41] VITALS: BP 104/52
[2024-02-15 10:55] LABS: Hematocrit 40.8 % (42.0-52.0); Hemoglobin 13.2 g/dl (14.0-18.0); Mean Corpuscular HGB Conc 32.4 g/dl (31.0-36.0); Mean Platelet Volume 9.3 fL (9.4-12.4); Platelet Count 182 X10*3/uL (160-400); Red Blood Count 4.12 X10*6/uL (4.60-5.80); Red Cell Distribution Width 14.7 % (11.0-16.0); White Blood Count 5.7 X10*3/uL (4.8-10.8)
[2024-02-15 11:31] LABS: B Type Natriuretic Peptide 361 pg/mL (<100)
[2024-02-15 11:35] LABS: Anion Gap 16 (12-20); Blood Urea Nitrogen 31 mg/dL (9-16); Calcium 9.4 mg/dL (8.4-10.2); Carbon Dioxide 28 mmol/L (22-29); Chloride 102 mmol/L (96-108); Estimated Glomerular Filt Rate 48; Glucose Random 141 mg/dL (60-115); Potassium 4.6 mmol/L (3.3-5.1); Sodium 141 mmol/L (135-145)
== END 2024-02-15 09:18 | disposition home or self-care (01) ==
LOC: HO.LAB 09:17
PROVIDERS: PCP Internal Medicine; Visit Provider Internal Medicine Cardiovascular Disease
DX: I50.30 Unspecified diastolic (congestive) heart failure (principal); I25.10 Atherosclerotic heart disease of native coronary artery without angina pectoris; I48.0 Paroxysmal atrial fibrillation; Z95.0 Presence of cardiac pacemaker; Z95.2 Presence of prosthetic heart valve
CPT/HCPCS: 36415; 80048; 83880; 85027; 93005; 93280; 99212

== ENCOUNTER 2024-03-19 09:31 | Emergency (ER) | payer MEDICARE, SELFPAY ==
[2023-01-10 09:41] VITALS: BP 104/52
--- NOTE | ~2024-03-19 | XR_ITS ---
EXAMINATION: XR CHEST CLINICAL INFORMATION: Chest discomfort COMPARISON: chest CT selected images TECHNIQUE: 2 views of the chest were obtained. FINDINGS: Heart and mediastinum within normal limits. Aortic calcifications. Bipolar pacer and aortic valve replacement. Underlying hyperinflation. Left mid lateral linear opacities paralleling the left pleura. Diffuse demineralization and vertebral body height losses. XR/XR chest 2V IMPRESSION: Linear opacities left hemithorax may be artifactual or superimposed. No failure or consolidations.
--- NOTE | 2024-03-19 09:34 | ECG_ITS ---
Test Reason : chest tightness Blood Pressure : / mmHG Vent. Rate : 098 BPM Atrial Rate : 108 BPM P-R Int : 000 ms QRS Dur : 174 ms QT Int : 430 ms P-R-T Axes : 110 -83 110 degrees QTc Int : 548 ms Ventricular-paced rhythm Abnormal ECG When compared with ECG of 19-OCT-2023 11:42, Vent. rate has increased BY 28 BPM Atrial rhythm possibly changed to atrial fibrillation. Referred By: Generic ED Physician Electronically Signed By:JAN DIAS
[2024-03-19 09:38] VITALS: BP 111/66; PULSE 100; RESP 19; TEMP 36.6; O2SAT 96; BMI 27.1
[2024-03-19 10:04] LABS: MANUAL DIFF FLAG NO
[2024-03-19 10:06] LABS: Basophils Percent Auto 0.8 % (0-2); Eosinophils Absolute Auto 0.1 X10*3/uL (0.0-0.4); Eosinophils Percent Auto 2.4 % (0-4); Hematocrit 40.1 % (42.0-52.0); Hemoglobin 13.3 g/dl (14.0-18.0); Imm Gran Abs Auto 0.02 X10*3/uL (0.00-0.03); Imm Gran Pct Auto 0.4 % (0.0-0.4); Lymphocytes Absolute Auto 0.9 X10*3/uL (1.2-4.9); Lymphocytes Percent Auto 17.7 % (20-40); Mean Corpuscular HGB Conc 33.2 g/dl (31.0-36.0); Mean Corpuscular Hemoglobin 32.7 pg (27.0-33.0); Mean Corpuscular Volume 98.5 fL (80.0-98.0); Mean Platelet Volume 8.9 fL (9.4-12.4); Monocytes Absolute Auto 0.5 X10*3/uL (0.1-1.2); Monocytes Percent Auto 9.4 % (2-11); Neutrophils Absolute Auto 3.4 x10*3/uL (2.0-8.3); Neutrophils Percent Auto 69.3 % (45-73); Platelet Count 170 X10*3/uL (160-400); Red Blood Count 4.07 X10*6/uL (4.60-5.80); Red Cell Distribution Width 15.6 % (11.0-16.0); White Blood Count 4.9 X10*3/uL (4.8-10.8)
[2024-03-19 10:12] LABS: INTERNATIONAL NORM RATIO 1.2 (0.9-1.1); Prothrombin Time 14.5 SEC (11.1-13.3)
[2024-03-19 10:27] VITALS: BP 112/75; PULSE 70; RESP 20; TEMP 36; O2SAT 100
--- NOTE | 2024-03-19 10:33 | PC.NURSE ---
Patient reports has had sob x 1 year s/p valve replacement. Reports has recently had chest pressure with exertion. Reports had the pain yesterday at cardiac rehab, and again today while doing yard work. Patient with v paced pacemaker, HR 70. VSS
[2024-03-19 10:37] LABS: Anion Gap 12 (12-20); Blood Urea Nitrogen 34 mg/dL (9-16); Calcium 9.4 mg/dL (8.4-10.2); Carbon Dioxide 31 mmol/L (22-29); Chloride 103 mmol/L (96-108); Estimated Glomerular Filt Rate 48; Glucose Random 133 mg/dL (60-115); Potassium 4.6 mmol/L (3.3-5.1); Sodium 141 mmol/L (135-145)
[2024-03-19 10:41] LABS: B Type Natriuretic Peptide 504 pg/mL (<100)
[2024-03-19 10:43] LABS: Influenza A PCR NEGATIVE (Negative); Influenza B PCR NEGATIVE (Negative); Resp Syncy Virus RNA Qual PCR NEGATIVE (Negative); SARS COV2 PCR INHOUSE NEGATIVE (Negative)
[2024-03-19 10:50] LABS: Troponin-I High Sensitivity 28.5 ng/L (<3.5-35.0)
[2024-03-19] MEDS: Apixaban 2.5 MG TABLET PO (10:54)
--- NOTE | 2024-03-19 10:55 | ED.CHESTPAIN ---
HPI - Chest Pain General Chief Complaint: Chest Pain Stated Complaint: weird sensation in chest Time Seen by Provider: 03/19/24 10:33 Source: patient Mode of arrival: ambulatory Limitations: no limitations History of Present Illness ED Provider: DR. Stephens HPI narrative: 89-year-old male came in for evaluation of chest pain while he is cutting a tree branches in his backyard started around 09:00, pain felt to be retrosternal mid chest with no radiation, patient have chronic shortness of breath, pain was relieved after stopped physical activity. Came to the hospital for further evaluation. Patient with known history HFpEF unspecified diastolic CHF, s/p TAVR, CAD, atherosclerotic heart disease follow-up with Dr. Dao, patient takes Eliquis 2.5 mg b.i.d. patient ran out of his Eliquis yesterday, and Plavix 75 mg daily for paroxysmal atrial fibrillation. Patient now has no chest pain. Related Data Home Medications ?Medication ?Instructions ?Recorded ?Confirmed atorvastatin 40 mg tablet 40 mg PO BEDTIME 12/31/20 03/19/24 glipizide 2.5 mg tablet, extended 2.5 mg PO DAILY 12/31/20 03/19/24 release 24 hr nitroglycerin 0.4 mg sublingual 0.4 mg sublingual TID PRN angina 12/31/20 03/19/24 tablet levothyroxine 50 mcg tablet 50 mcg PO DAILY 01/10/23 03/19/24 levothyroxine 50 mcg tablet 25 mcg PO MOFR 03/19/24 03/19/24 (Synthroid) Previous Rx's ?Medication ?Instructions ?Recorded furosemide 20 mg tablet 20 mg PO BID 90 days #180 tabs 08/29/23 metoprolol tartrate 50 mg tablet 50 mg PO BID #180 tabs 09/20/23 amiodarone 200 mg tablet 200 mg PO DAILY #90 tabs 11/07/23 apixaban 5 mg tablet (Eliquis) 5 mg PO BID 90 days #180 tabs 12/14/23 clopidogrel 75 mg tablet 75 mg PO DAILY 90 days #90 tabs 12/14/23 lisinopril 2.5 mg tablet 2.5 mg PO DAILY 30 days #30 tabs 12/28/23 apixaban 2.5 mg tablet (Eliquis) 2.5 mg PO BID #14 tabs 03/19/24 Allergies Allergy/AdvReac Type Severity Reaction Status Date / Time No Known Allergies Allergy Verified 03/19/24 09:41 [No Known Allergies*] Review of Systems Review of Systems: All other systems are reviewed and are negative Constitutional: Reports as per HPI and Reports no additional constitutional complaints Eyes: Reports as per HPI and Reports no additional eye complaints Reports system reviewed and no additional complaints, except as documented Cardiovascular: Reports as per HPI and Reports no additional cardiovascular complaints Respiratory: Reports as per HPI and Reports no additional respiratory complaints Gastrointestinal: Reports as per HPI and Reports no additional gastrointestinal complaints Genitourinary: Reports no additional female genitourinary complaints Musculoskeletal: Reports no additional musculoskeletal complaints Skin/Breast: Reports system reviewed and no additional complaints, except as docu Psychiatric: Reports no additional psychiatric complaints Endocrine: Reports no additional endocrine complaints Hematologic/Lymphatic: Reports no additional hematologic/lymphatic complaints Allergic/Immunologic: Reports no additional allergic/immunologic complaints Reports system reviewed and no additional complaints, except as documented and Reports Abnormal speech present [facility] Past Medical History Medical History Tubular adenoma of colon Atherosclerosis of both carotid arteries Aortic stenosis Exertional angina Paroxysmal atrial fibrillation Diabetes mellitus HTN (hypertension) Sick sinus syndrome (~2013) Cardiac pacemaker in situ (~2013) CAD (coronary artery disease) Surgical History Stented coronary artery History of cataract surgery History of tonsillectomy History of appendectomy History of right hip replacement History of cardioversion (~2014) History of left hip replacement (~1998) History of melanoma excision (~2011) History of colonoscopy (~2010) History of cardiac cath (~2017) History of right-sided carotid endarterectomy (~2000) History of pacemaker (~2013) Family History Family History Father No problems noted. Mother Lung cancer Social History Social History Alcohol intake: former Patient Tobacco Use Status: Former Tobacco user Tobacco use type: Cigarette Cigarette Packs Per Day: 1 Years Smoked: 50 Smoked in Last 30 Days: No Second Hand Smoke Exposure: No Use of substances other than those prescribed or required for medical reasons: No Advance Directives: Yes Advance Directives Information Provided: Yes Advance Directives on File: No Physical Exam Vital Signs: Vital Signs: Last Vital Signs Temp 97.5 F 03/19/24 14:35 Pulse 80 03/19/24 14:35 Resp 14 03/19/24 14:35 BP 115/67 03/19/24 14:35 Pulse Ox 98 03/19/24 14:35 O2 Del Method Room Air 03/19/24 14:35 BMI result Body Mass Index 27.1 Vital signs have been reviewed and appear to be correct. Blood pressure elevated. Heart rate normal. Respiratory rate normal. Temperature normal. Oxygen saturation normal. Appearance: Alert. Oriented X3. No acute distress. Head: Normal external exam. Normocephalic. Atraumatic. No Gamez signs noted. No raccoon eyes noted Eyes: PERRLA. EOMI. Conjunctiva and sclera normal. Eyelids normal. ENT: TM's Normal. Pharynx normal. Uvula midline. Moist mucous membranes. No trismus noted. No drooling noted. No muffled voice noted. Neck: Normal inspection. Neck supple. FROM. No adenopathy. Thyroid Normal. No meningeal signs. No neck mass noted. CVS: Normal heart rate and rhythm. Heart sound normal. No murmurs noted. Pulses normal throughout. Respiratory: No respiratory distress. Painless inspiration. Breath sounds normal. No wheezes/rales/rhonchi noted. Chest nontender. No accessory muscle usage noted or decreased air movement noted. Abdomen: Soft and nontender. Bowel sounds normal in all 4 quadrants. No distention noted. No organomegaly noted. No visible injury noted. Back: No CVA tenderness. Full range of motion noted. Skin: Skin warm and dry. Normal skin color. Normal skin turgor. No rashes/lesions/lacerations noted. Extremities: No lower extremity edema. Extremities exhibit normal range of motion. Extremities nontender. Neuro: Oriented X 3. Cranial nerve exam: II-XII are grossly intact No motor deficit. No sensory deficit. Reflexes normal. Course Reevaluation(s) Reevaluation #1: Patient remained chest pain-free while in the ED, no dyspnea, 2x troponin within normal limits, EKG is nondiagnostic. Finding were discussed with the patient and instructed to follow-up with Dr. Dao. Will prescribe Eliquis for 10 days until he gets refill prescription from his prescriber. Time: 15:03 Medications Administered Discontinued Medications Generic Name Dose Route Start Last Admin Trade Name Jodi PRN Reason Stop Dose Admin Apixaban 2.5 mg 03/19/24 10:46 03/19/24 10:54 Apixaban 2.5 Mg Tablet PO 03/19/24 10:47 2.5 mg ONCE ONE Administration Medical Decision Making Differential Diagnosis Differential Diagnoses: The differential diagnosis associated with the presentation includes (ACS, pneumonia, pneumothorax, pleural effusion, electrolyte derangement, severe anemia.) Admission/Observation Consideration of admission/observation: Escalation of care including admission/observation considered Lab Data MDM Lab Attestation statement: I reviewed the patient's lab results. 03/19/24 09:55 03/19/24 09:55 Labs: Lab Results 03/19/24 03/19/24 Range/Units 09:55 14:01 WBC 4.9 (4.8-10.8) X10*3/uL RBC 4.07 L (4.60-5.80) X10*6/uL Hgb 13.3 L (14.0-18.0) g/dl Hct 40.1 L (42.0-52.0) % MCV 98.5 H (80.0-98.0) fL MCH 32.7 (27.0-33.0) pg MCHC 33.2 (31.0-36.0) g/dl RDW 15.6 (11.0-16.0) % Plt Count 170 (160-400) X10*3/uL MPV 8.9 L (9.4-12.4) fL Immature Gran % (Auto) 0.4 (0.0-0.4) % Neut % (Auto) 69.3 (45-73) % Lymph % (Auto) 17.7 L (20-40) % [place] % (Auto) 9.4 (2-11) % Eos % (Auto) 2.4 (0-4) % Baso % (Auto) 0.8 (0-2) % Lymph # (Auto) 0.9 L (1.2-4.9) X10*3/uL [place] # (Auto) 0.5 (0.1-1.2) X10*3/uL Eos # (Auto) 0.1 (0.0-0.4) X10*3/uL Baso # (Auto) 0.0 (0.0-0.2) X10*3/uL Abs Immat Gran (auto) 0.02 (0.00-0.03) X10*3/uL Absolute Neuts (auto) 3.4 (2.0-8.3) x10*3/uL Absolute Nucleated RBC 0.000 (0.0-0.012) X10*3/uL Nucleated RBC % (auto) 0.0 (0.0-0.2) /100WBC PT 14.5 H (11.1-13.3) SEC INR 1.2 H (0.9-1.1) Sodium 141 (135-145) mmol/L Potassium 4.6 (3.3-5.1) mmol/L Chloride 103 (96-108) mmol/L Carbon Dioxide 31 H (22-29) mmol/L Anion Gap 12 (12-20) BUN 34 H (9-16) mg/dL Creatinine 1.39 (0.5-1.4) mg/dL Estim Creat Clear Calc 41.0 Estimated GFR 48 Random Glucose 133 H (60-115) mg/dL Calcium 9.4 (8.4-10.2) mg/dL Troponin I High Sens 28.5 24.3 (<3.5-35.0) ng/L B-Natriuretic Peptide 504 H (<100) pg/mL Influenza Type A (PCR) NEGATIVE (Negative) Influenza Type B (PCR) NEGATIVE (Negative) RSV RNA Qual (PCR) NEGATIVE (Negative) SARS-CoV-2 RNA (RT-PCR) NEGATIVE (Negative) Independent Interpretation I performed an independent interpretation of an: EKG (Ventricular paced at 98 BPM.) and Plain X-Ray (Linear opacities left hemithorax may be artifactual or superimposed. No failure or consolidations.) Radiology Impression Discussion of test interpretation with radiology: I have reviewed the radiologist's reading. Chronic Conditions Patient?s care impacted by: Other (Coronary artery disease) Discharge Plan Discharge Clinical Impression: Stable angina Patient Disposition: Home, Self-Care Instructions: Angina (ED) Prescriptions: New Eliquis 2.5 mg tablet 2.5 mg PO BID Qty: 14 0RF No Action furosemide 20 mg tablet 20 mg PO BID 90 Days Qty: 180 3RF metoprolol tartrate 50 mg tablet 50 mg PO BID Qty: 180 3RF Eliquis 5 mg tablet 5 mg PO BID 90 Days Qty: 180 3RF clopidogrel 75 mg tablet 75 mg PO DAILY 90 Days Qty: 90 3RF lisinopril 2.5 mg tablet 2.5 mg PO DAILY 30 Days Qty: 30 3RF Rx Instructions: NEW DOSE - 2.5 MG TABLET levothyroxine [Synthroid] 50 mcg tablet 25 mcg PO MOFR atorvastatin 40 mg tablet 40 mg PO BEDTIME glipizide 2.5 mg tablet extended release 24hr 2.5 mg PO DAILY nitroglycerin 0.4 mg tablet, sublingual 0.4 mg sublingual TID PRN (Reason: angina) levothyroxine 50 mcg tablet 50 mcg PO DAILY Rx Instructions: extra 1/2 twice a week amiodarone 200 mg tablet 200 mg PO DAILY Qty: 90 3RF Referrals: Jonathon Walden MD [Primary Care Provider] - Hilario Dao MD [Physician] - Print Language: Lithuanian
--- NOTE | 2024-03-19 12:28 | PHA.MEDREC ---
Addendum entered by Lawrence Landeros chely 03/19/24 13:31: med rec reviewed Original Note: Pharmacy Consult ? Medication Reconciliation Pharmacy has completed the medication reconciliation. Confirmed medications with patient. Patient confirmed his Eliquis 5mg BID dose and he last took that at home yesterday. Patient also on Levothyroxine 50mcg daily and states he takes an additional 1/2 tablet (25mcg) on Mondays and Fridays and he last took that dose Monday03/18/24.
[2024-03-19 13:01] VITALS: BP 102/60; PULSE 72; RESP 12; TEMP 36.4; O2SAT 100
[2024-03-19 14:35] VITALS: BP 115/67; PULSE 80; RESP 14; TEMP 36.4; O2SAT 98
[2024-03-19 14:41] LABS: Troponin-I High Sensitivity 24.3 ng/L (<3.5-35.0)
[2024-03-19 15:13] VITALS: BP 115/67; PULSE 80; RESP 18; TEMP 36.4; O2SAT 98
== END 2024-03-19 15:20 | disposition home or self-care (01) ==
PROVIDERS: Emergency Provider Emergency Medicine; PCP Internal Medicine
DX: I20.89 Other forms of angina pectoris (principal); I10 Essential (primary) hypertension; R06.02 Shortness of breath; E11.9 Type 2 diabetes mellitus without complications; I48.0 Paroxysmal atrial fibrillation; Z79.01 Long term (current) use of anticoagulants; Z79.899 Other long term (current) drug therapy; Z79.02 Long term (current) use of antithrombotics/antiplatelets; Z95.0 Presence of cardiac pacemaker; Z87.891 Personal history of nicotine dependence; Z03.818 Encounter for observation for suspected exposure to other biological agents ruled out
CPT/HCPCS: 0241U; 36415; 71046; 80048; 83880; 84484; 85025; 85610; 93005; 99283; 99285

== ENCOUNTER → 2024-03-19 09:34 | Outpatient (BNV) | payer MEDICARE, SELFPAY ==
[2023-01-10 09:41] VITALS: BP 104/52
== END ==
PROVIDERS: Emergency Provider Emergency Medicine; PCP Internal Medicine; Visit Provider Internal Medicine
DX: R07.9 Chest pain, unspecified (principal)
CPT/HCPCS: 93010

== ENCOUNTER 2024-04-01 08:30 | Outpatient (RCR) | payer MEDICARE, SELFPAY ==
[2023-01-10 09:41] VITALS: BP 104/52
[2023-12-27 09:31] LABS: Glucose, Whole Blood 77 mg/dL (60-115)
[2024-01-05 09:32] LABS: Glucose, Whole Blood 117 mg/dL (60-115)
== END 2024-04-22 13:24 | disposition home or self-care (01) ==
LOC: HO.CR 08:30
PROVIDERS: PCP Internal Medicine; Visit Provider Nurse Practitioner
DX: Z95.2 Presence of prosthetic heart valve (principal)
CPT/HCPCS: 82947; 93798

== ENCOUNTER 2024-04-18 14:30 | Outpatient (AMB) | payer MEDICARE, SELFPAY ==
[2023-01-10 09:41] VITALS: BP 104/52
--- NOTE | 2024-04-18 14:49 | A.OFFVIS_ITS ---
Vital Signs 04/18/24 14:50 Height 6 ft Weight 198 lb 6.656 oz BMI 26.9 BP 106/58 L Blood Pressure Location Lt brachial Position Sitting Pulse 72 Pulse Source Monitor Intake Visit Reasons: r/s 04/02/24 followup after ed Allergies No Known Allergies [No Known Allergies*] Allergy (Verified 03/19/24 09:41) HPI Comments Details: 89-year-old male presents today for a follow-up after emergency room visit. He was at cardiac rehab on 03/18/2024 and had some chest discomfort. He declined the emergency room on that day but returned to the emergency room the next day for evaluation. He did 2 more days of cardiac rehab and has done well since and had has no chest pain. He reports he has been doing well with no palpitations, chest pains or discomfort he struggles to describe the chest discomfort he had that day but states it was possibly pressure-like. He reports his shortness of breath has remained the same as it has been all along. He has been doing yard work and mowing his lawn with no concerning symptoms. He does report he is currently being worked up for possible another hip replacement. [facility] Medical History Chest pain Tubular adenoma of colon Atherosclerosis of both carotid arteries Aortic stenosis Exertional angina Paroxysmal atrial fibrillation Diabetes mellitus HTN (hypertension) Sick sinus syndrome (~2013) Cardiac pacemaker in situ (~2013) CAD (coronary artery disease) Surgical History Stented coronary artery History of cataract surgery History of tonsillectomy History of appendectomy History of right hip replacement History of cardioversion (~2014) History of left hip replacement (~1998) History of melanoma excision (~2011) History of colonoscopy (~2010) History of cardiac cath (~2017) History of right-sided carotid endarterectomy (~2000) History of pacemaker (~2013) Family History Father No problems noted. Mother Lung cancer Social History Alcohol intake: former Patient Tobacco Use Status: Former Tobacco user Tobacco use type: Cigarette Cigarette Packs Per Day: 1 Years Smoked: 50 Second Hand Smoke Exposure: No Review of Systems Const Denies weakness ENT Denies dizziness Card Denies chest pain, Denies chest pain with activity, Denies syncope, Denies rapid heart rate, Denies pedal edema, Denies edema, Denies leg edema, Denies lightheadedness, Denies palpitations, Denies dyspnea, Denies dyspnea on exertion and Denies orthopnea Resp Denies cough, Denies dyspnea and Denies dyspnea on exertion GI Denies hematochezia and Denies change in stool character Musc Denies abnormal gait, Denies muscle cramps, Denies muscle weakness, Denies numbness, Denies radiating pain into limb and Denies tingling Neuro Denies abnormal gait, Denies dizziness, Denies syncope, Denies numbness, Denies tingling and Denies weakness Endo Denies palpitations Physical Exam Vital Signs: Last Vital Signs Pulse 72 04/18/24 14:50 BP 106/58 L 04/18/24 14:50 BMI result Body Mass Index 26.9 Const General: healthy appearing and no acute distress Orientation/consciousness: patient oriented x3 HEENT Head: Yes normal to inspection Eyes General: appearance normal, both eyes and all related structures Neck Neck: Yes normal visual inspection Chest Chest palpation & inspection: normal inspection of the chest Resp Effort & Inspection: normal respiratory effort Auscultation: clear to auscultation bilaterally Cardio Jugular venous distension: no JVD Palpation: normal PMI Rate: regular rate Rhythm: regular rhythm Heart sounds: S1 normal heart sound present, S2 normal heart sound present, no click, no gallops, no murmurs and no rubs GI Inspection: Yes normal to inspection Palpation (GI): Soft to palpation Skin General skin exam: no rashes or lesions noted Neuro General: patient oriented x3 Extrem General: Yes normal to inspection Psych Appearance: grossly normal Office Procedures EKG Details: EKG today. Ventricular paced rhythm. Ventricular rate 72 beats per minute. QRS duration 176 milliseconds. QTC 519 milliseconds. [id number], Complete Assessment & Plan Assessment & Plan (1) Chest pain: Code(s): R07.9 - Chest pain, unspecified Category: Medical (2) Preop cardiovascular exam: Code(s): Z01.810 - Encounter for preprocedural cardiovascular examination Category: Medical Plan Patient had 1 episode of chest discomfort during cardiac rehab due to other sessions of cardiac rehab without any concerns. He has continued to do his typical household duties such as mowing the lawn without any concerning symptoms. We will do pharmacological stress test to assess for ischemia. He has being worked up for possible hip replacement. We will also do pharmacological stress test for clearance. Continue all medications as current. Coding Level of Care Code Est Pt Level 3 (37505) Diagnoses Chest pain R07.9 Preop cardiovascular exam Z01.810 CPT Codes EKG - CPT: 13719-[id number], Complete ([id number])
[2024-04-18 14:50] VITALS: BP 106/58; PULSE 72; BMI 26.9
== END 2024-04-18 15:32 | disposition home or self-care (01) ==
PROVIDERS: PCP Internal Medicine; Visit Provider Nurse Practitioner
DX: R07.9 Chest pain, unspecified (principal)
CPT/HCPCS: 93010; 99213

== ENCOUNTER → 2024-04-18 14:30 | Outpatient (BNVA) | payer MEDICARE, SELFPAY ==
[2023-01-10 09:41] VITALS: BP 104/52
== END ==
PROVIDERS: PCP Internal Medicine; Visit Provider Nurse Practitioner
DX: Z01.810 Encounter for preprocedural cardiovascular examination (principal); R07.9 Chest pain, unspecified
CPT/HCPCS: 93005; 99212

== ENCOUNTER → 2024-05-15 23:59 | Outpatient (BNV) | payer MEDICARE, SELFPAY ==
[2023-01-10 09:41] VITALS: BP 104/52
--- NOTE | 2024-05-15 15:24 | MHC.OFFVIS ---
Intake Visit Reasons: Remote device check- [facility] Allergies No Known Allergies [No Known Allergies*] Allergy (Verified 03/19/24 09:41) [facility] Medical History Chest pain Tubular adenoma of colon Atherosclerosis of both carotid arteries Aortic stenosis Exertional angina Paroxysmal atrial fibrillation Diabetes mellitus HTN (hypertension) Sick sinus syndrome (~2013) Cardiac pacemaker in situ (~2013) CAD (coronary artery disease) Surgical History Stented coronary artery History of cataract surgery History of tonsillectomy History of appendectomy History of right hip replacement History of cardioversion (~2014) History of left hip replacement (~1998) History of melanoma excision (~2011) History of colonoscopy (~2010) History of cardiac cath (~2017) History of right-sided carotid endarterectomy (~2000) History of pacemaker (~2013) Family History Father No problems noted. Mother Lung cancer Social History Alcohol intake: former Patient Tobacco Use Status: Former Tobacco user Tobacco use type: Cigarette Cigarette Packs Per Day: 1 Years Smoked: 50 Second Hand Smoke Exposure: No Office Procedures Cardiac Device Check Cardiac Device Check Details: Remote pacemaker report generated 05/15/2024. Pacemaker function is adequate [id number] Cardiac Device Interrogation, pacemaker Procedure code (CPT) selection complete Assessment & Plan Assessment & Plan (1) Cardiac pacemaker in situ: Onset Date: ~2013 Comment: ([facility] DCPP - placed 2013 for SSS; generator change 2022) Code(s): Z95.0 - Presence of cardiac pacemaker Category: Medical Plan: See above Coding Level of Care Code Procedure Only Diagnoses Cardiac pacemaker in situ Z95.0 CPT Codes Cardiac Device Check - Cardiac Device 12: [id number] Cardiac Device Interrogation, pacemaker ([id number])
== END ==
PROVIDERS: PCP Internal Medicine; Visit Provider Internal Medicine Cardiovascular Disease
DX: Z45.018 Encounter for adjustment and management of other part of cardiac pacemaker (principal)
CPT/HCPCS: 93294

== ENCOUNTER 2024-06-05 09:09 | Outpatient (REF) | payer MEDICARE, SELFPAY ==
[2023-01-10 09:41] VITALS: BP 104/52
[2024-06-05 10:38] LABS: Basophils Percent Auto 0.8 % (0-2); Eosinophils Absolute Auto 0.1 X10*3/uL (0.0-0.4); Eosinophils Percent Auto 2.1 % (0-4); Hemoglobin 13.7 g/dl (14.0-18.0); Imm Gran Abs Auto 0.02 X10*3/uL (0.00-0.03); Imm Gran Pct Auto 0.4 % (0.0-0.4); Lymphocytes Absolute Auto 0.9 X10*3/uL (1.2-4.9); MANUAL DIFF FLAG SCAN; Mean Corpuscular HGB Conc 32.6 g/dl (31.0-36.0); Mean Corpuscular Hemoglobin 31.7 pg (27.0-33.0); Mean Corpuscular Volume 97.2 fL (80.0-98.0); Monocytes Absolute Auto 0.4 X10*3/uL (0.1-1.2); Monocytes Percent Auto 8.5 % (2-11); Neutrophils Absolute Auto 3.4 x10*3/uL (2.0-8.3); Neutrophils Percent Auto 69.2 % (45-73); PLT CLUMP 1; Red Blood Count 4.32 X10*6/uL (4.60-5.80); Red Cell Distribution Width 16.4 % (11.0-16.0); SCAN SMEAR FLAG 1
[2024-06-05 10:39] LABS: White Blood Count 4.8 X10*3/uL (4.8-10.8)
[2024-06-05 10:45] LABS: Estimated Average Glucose 146 mg/dL; Hemoglobin A1C 171.4558 umol/L; Hemoglobin A1c % 6.7 % (<6.0); Total Hemoglobin (HGBA1C) 3483.3591 umol/L
[2024-06-05 10:58] LABS: Mean Platelet Volume 9.5 fL (9.4-12.4); Platelet Count 156 X10*3/uL (160-400); SLIDE REVIEW VERIFIED
[2024-06-05 11:51] LABS: Creatinine Urine 53.35 mg/dL; Microalbumin Urine < 5.0 mg/L
[2024-06-05 12:23] LABS: Prostate Specific Antigen 1.46 ng/mL (<0.05-4.0)
== END 2024-06-05 09:10 | disposition home or self-care (01) ==
LOC: HO.LAB 09:09
PROVIDERS: PCP Internal Medicine; Visit Provider Internal Medicine
DX: R73.03 Prediabetes (principal); Z12.5 Encounter for screening for malignant neoplasm of prostate; R52 Pain, unspecified; E03.9 Hypothyroidism, unspecified
CPT/HCPCS: 36415; 80053; 80061; 82043; 82570; 83036; 84153; 84439; 84443; 85025

== ENCOUNTER 2024-06-26 10:27 | Outpatient (REF) | payer MEDICARE, SELFPAY ==
[2023-01-10 09:41] VITALS: BP 104/52
== END 2024-06-26 10:28 | disposition home or self-care (01) ==
LOC: HO.LAB 10:27
PROVIDERS: PCP Internal Medicine; Visit Provider Internal Medicine
DX: Z13.89 Encounter for screening for other disorder (principal)

== ENCOUNTER 2024-06-27 10:00 | Outpatient (REF) | payer MEDICARE, SELFPAY ==
[2023-01-10 09:41] VITALS: BP 104/52
[2024-06-27 11:09] LABS: Albumin Level 3.6 g/dL (3.5-5.0); Alkaline Phosphatase 95 U/L (39-117); Anion Gap 14 (12-20); Aspartate Amino Transferase 46 U/L (5-37); Bilirubin Total 1.4 mg/dL (0.0-1.0); Blood Urea Nitrogen 41 mg/dL (9-16); Carbon Dioxide 32 mmol/L (22-29); Chloride 100 mmol/L (96-108); Cholesterol 135 mg/dL (<200); Estimated Glomerular Filt Rate 50; Glucose Fasting 123 mg/dL (60-99); HDL Cholesterol 40 mg/dL (>40); LDL Cholesterol Calculated 85 mg/dL (<100); Potassium 4.6 mmol/L (3.3-5.1); Sodium 141 mmol/L (135-145); Total Protein 6.7 g/dL (6.5-8.0); Triglycerides 54 mg/dL (<150)
[2024-06-27 11:15] LABS: Alanine Aminotransferase 30 U/L (0-40)
[2024-06-27 11:21] LABS: Thyroid Stimulating Hormone 5.27 uIU/mL (0.32-4.0)
== END 2024-06-27 10:01 | disposition home or self-care (01) ==
LOC: HO.LAB 10:00
PROVIDERS: PCP Internal Medicine; Visit Provider Internal Medicine
DX: R73.03 Prediabetes (principal); E03.9 Hypothyroidism, unspecified
CPT/HCPCS: 36415; 80053; 80061; 84439; 84443

== ENCOUNTER → 2024-08-02 11:59 | Outpatient (BNVA) | payer MEDICARE, SELFPAY ==
[2023-01-10 09:41] VITALS: BP 104/52
== END ==
PROVIDERS: PCP Internal Medicine; Visit Provider Internal Medicine Cardiovascular Disease

== ENCOUNTER 2024-08-12 09:35 | Outpatient (AMB) | payer MEDICARE, SELFPAY ==
[2023-01-10 09:41] VITALS: BP 104/52
[2024-08-12 09:55] VITALS: BP 100/52; PULSE 70; BMI 29.7
--- NOTE | 2024-08-12 09:55 | A.OFFVIS_ITS ---
Vital Signs 08/12/24 09:55 Height 6 ft Weight 218 lb 11.177 oz BMI 29.7 BP 100/52 L Blood Pressure Location Lt brachial Position Sitting Pulse 70 Pulse Source Monitor Intake Visit Reasons: followup leg swelling/labs [employer] [place] Required: No Allergies No Known Allergies [No Known Allergies*] Allergy (Verified 08/12/24 09:59) Medication List - Last Reconciled 08/12/24 by Mary Guido NP-C amiodarone 200 mg PO DAILY apixaban (Eliquis) 5 mg PO BID 90 days atorvastatin 40 mg PO BEDTIME clopidogrel 75 mg PO DAILY 90 days furosemide 20 mg PO BID 90 days glipizide ER 2.5 mg PO DAILY levothyroxine (Synthroid) 25 mcg PO MOFR levothyroxine 50 mcg PO DAILY lisinopril 2.5 mg PO DAILY 30 days metoprolol tartrate 50 mg PO BID nitroglycerin 0.4 mg sublingual TID PRN HPI HPI followup leg swelling/labs: Details: Korey is an 89-year-old male past medical history of hypertension, diabetes, heart failure with preserved EF, pacemaker, aortic stenosis status post TAVR, paroxysmal AFib with prior cardioversion and recurrent atrial tachycardia with recent repeat cardioversion who had leg edema last visit and now presents for follow-up. Today he reports that he still has some swelling in his legs. He believes they are looking about the same as when he saw Dr Dao. No new complaints. Breathing comfortable at rest. He does get sob with walking which is not new. No PND, orthopnea. No chest discomfort, palpitations, lightheadedness, presyncope, syncope. He did trip over his cane 3 months ago and had an injury to his right hip. He said he had a very large lump/hematoma which is much improved. No bleeding issues otherwise. Taking all meds as directed. [facility] Medical History Chest pain Tubular adenoma of colon Atherosclerosis of both carotid arteries Aortic stenosis Exertional angina Paroxysmal atrial fibrillation Diabetes mellitus HTN (hypertension) Sick sinus syndrome (~2013) Cardiac pacemaker in situ (~2013) CAD (coronary artery disease) Surgical History Stented coronary artery History of cataract surgery History of tonsillectomy History of appendectomy History of right hip replacement History of cardioversion (~2014) History of left hip replacement (~1998) History of melanoma excision (~2011) History of colonoscopy (~2010) History of cardiac cath (~2017) History of right-sided carotid endarterectomy (~2000) History of pacemaker (~2013) Family History Father No problems noted. Mother Lung cancer Social History Alcohol intake: former Patient Tobacco Use Status: Former Tobacco user Tobacco use type: Cigarette Cigarette Packs Per Day: 1 Years Smoked: 50 Second Hand Smoke Exposure: No Review of Systems Const All systems reviewed & are unremarkable except as noted in HPI and below ENT Denies dizziness Card Denies chest pain, Denies chest pain at rest, Denies chest pain with activity, Denies rapid heart rate, Denies pedal edema, Denies edema, Reports leg edema, Denies lightheadedness, Denies palpitations, Reports dyspnea, Denies dyspnea on exertion and Denies orthopnea Resp Denies cough, Reports dyspnea and Denies dyspnea on exertion GI Denies hematochezia and Denies change in stool character Musc Details: fell and has swelling right hip 3 mo ago - much improved Denies abnormal gait, Denies limited range of motion, Denies muscle cramps, Denies muscle weakness, Denies numbness, Denies radiating pain into limb, Denies stiffness and Denies tingling Neuro Denies abnormal gait, Denies dizziness, Denies numbness and Denies tingling Endo Denies palpitations Physical Exam Vital Signs: Last Vital Signs Pulse 70 08/12/24 09:55 BP 100/52 L 08/12/24 09:55 BMI result Body Mass Index 29.7 Const General: cooperative, healthy appearing, comfortable and no acute distress Orientation/consciousness: patient oriented x3 Neck Neck: Yes normal visual inspection Resp Effort & Inspection: normal respiratory effort Auscultation: clear to auscultation bilaterally, rales (left lower lobe), no rhonchi and no wheezes Cardio Jugular venous distension: JVD Rate: regular rate Rhythm: regular rhythm Heart sounds: S1 normal heart sound present, S2 normal heart sound present, no murmurs and no rubs GI Inspection: Yes normal to inspection Neuro General: patient oriented x3 Extrem Other: tight nonpitting edema to level of knees and pitting edema posterior thighs. Tennis ball size swelling to right greater trochanter region s/p fall from 3 mo ago - residual hematoma/ swelling ( pt telling me this is now greatly improved) Psych Appearance: grossly normal Mental Status: mental status grossly normal Speech and movement: Normal speech and movement present Office Procedures EKG Details: Today, read by me, A sensed, V paced rhythm, cant exclude prior inferior or anterolateral infarcts, rate 70, JT index 91.9 [id number], Complete Assessment & Plan Assessment & Plan (1) (HFpEF) heart failure with preserved ejection fraction: Code(s): I50.30 - Unspecified diastolic (congestive) heart failure Category: Medical Plan: History of heart failure with preserved EF. Last echocardiogram 11/15/2023 shows EF 55-60%, severe left atrium dilation, normally functioning bioprosthetic aortic valve, normal RV pressure. On examination today he does have tight leg edema which he says has been unchanged recently. He did have an increase in his lasix but states it doesnt seem to have made a difference. Will check labs today, BMP, BNP. may need to further increase lasix. Signs and symptoms of heart failure reviewed with him. No med changes at this time. Office visit in 4-6 weeks to reeval. (2) Atrial tachycardia: Code(s): I47.19 - Other supraventricular tachycardia Category: Medical Plan: Newer finding of atrial tachycardia as seen on remote monitoring 09/2023. He underwent a cardioversion on 10/19/2023. His remote device monitoring has not alerted for atrial tachycardia since that time. An EKG done in the office today shows A sensed /V paced rhythm, rate 70. He does have some ongoing shortness of breath which is not new. Continue amiodarone and metoprolol. Continue Eliquis without interruption. Recent labs done for amiodarone monitoring. TSH mildly elevated. Will recheck today. (3) Atrial flutter: Code(s): I48.92 - Unspecified atrial flutter Category: Medical Plan: History of atrial fibrillation/flutter. He last underwent a cardioversion on 05/03/2023 for this rhythm. He is maintained sinus rhythm since that time up un til recently, then had atrial tach as above. (4) Cardiac pacemaker in situ: Onset Date: ~2013 Comment: ([facility] DCPP - placed 2013 for SSS; generator change 2022) Code(s): Z95.0 - Presence of cardiac pacemaker Category: Medical Plan: [facility] dual-chamber pacemaker in place. He has remote monitoring in use. (5) CAD (coronary artery disease): Comment: (08/2017 Cardiac Cath showed severe ostial OM1 disease, severe ostial RPDA disease - not candidate for intervention) Code(s): I25.10 - Atherosclerotic heart disease of [place] coronary artery without angina pectoris Category: Medical Plan: Known CAD. Stable without any anginal symptoms. Continue with medical management. (6) Current use of anticoagulant therapy: Comment: (on Eliquis) Code(s): Z79.01 - USP (current) use of anticoagulants Category: Medical Plan: On Eliquis for anticoagulation. No bleeding issues reported (7) S/P TAVR (transcatheter aortic valve replacement): Comment: Status post 29 mm Medtronic Evolut, 10/31/2022 Code(s): Z95.2 - Presence of prosthetic heart valve Category: Surgical Plan: TAVR done 10/31/2022. Last echo shows device is functioning normally. No murmur on exam. Endocarditis prophylaxis for dental work. Plan Time spent on chart review, documentation, interview, assessment, orders Orders: Orders Basic Metabolic Panel Today I10 - Essential (primary) hypertension, I25.10 - Atherosclerotic heart disease of [place] coronary artery without angina pectoris B Type Natriuretic Peptide Today I25.10 - Atherosclerotic heart disease of [place] coronary artery without angina pectoris Coding Level of Care Code Est Pt Level 4 (34959) Diagnoses (HFpEF) heart failure with preserved ejection fraction I50.30 Atrial tachycardia I47.19 Atrial flutter I48.92 Cardiac pacemaker in situ Z95.0 CAD (coronary artery disease) I25.10 Current use of anticoagulant therapy Z79.01 S/P TAVR (transcatheter aortic valve replacement) Z95.2 CPT Codes EKG - CPT: 01195-[id number], Complete ([id number]) Time Spent (min) 36
== END 2024-08-12 10:39 | disposition home or self-care (01) ==
PROVIDERS: PCP Internal Medicine; Visit Provider Nurse Practitioner Family
DX: I50.30 Unspecified diastolic (congestive) heart failure (principal); I47.19 Other supraventricular tachycardia; I48.92 Unspecified atrial flutter; Z95.0 Presence of cardiac pacemaker; I25.10 Atherosclerotic heart disease of native coronary artery without angina pectoris; Z79.01 Long term (current) use of anticoagulants; Z95.2 Presence of prosthetic heart valve
CPT/HCPCS: 93010; 99214

== ENCOUNTER 2024-08-12 09:35 | Outpatient (REF) | payer MEDICARE, SELFPAY ==
[2023-01-10 09:41] VITALS: BP 104/52
[2024-08-12 12:54] LABS: Anion Gap 14 (12-20); B Type Natriuretic Peptide 918 pg/mL (<100); Blood Urea Nitrogen 45 mg/dL (9-16); Calcium 9.3 mg/dL (8.4-10.2); Carbon Dioxide 29 mmol/L (22-29); Chloride 104 mmol/L (96-108); Estimated Glomerular Filt Rate 35; Glucose Random 122 mg/dL (60-115); Sodium 142 mmol/L (135-145)
[2024-08-12 13:02] LABS: Anion Gap 16 (12-20); Blood Urea Nitrogen 43 mg/dL (9-16); Calcium 9.4 mg/dL (8.4-10.2); Carbon Dioxide 28 mmol/L (22-29); Chloride 103 mmol/L (96-108); Estimated Glomerular Filt Rate 35; Glucose Random 121 mg/dL (60-115); Potassium 5.1 mmol/L (3.3-5.1); Sodium 142 mmol/L (135-145)
[2024-08-12 13:12] LABS: TSH reflex Free T4 6.93 uIU/mL (0.32-4.0)
[2024-08-12 14:17] LABS: Free T4 (Free Thyroxine) 1.18 ng/dL (0.71-1.85)
== END 2024-08-12 09:36 | disposition home or self-care (01) ==
LOC: HO.LAB 09:35
PROVIDERS: Internal Medicine Cardiovascular Disease; PCP Internal Medicine; Visit Provider Nurse Practitioner Family
DX: I10 Essential (primary) hypertension (principal); I47.19 Other supraventricular tachycardia; I25.10 Atherosclerotic heart disease of native coronary artery without angina pectoris; I50.30 Unspecified diastolic (congestive) heart failure; I48.0 Paroxysmal atrial fibrillation; I48.92 Unspecified atrial flutter; Z95.0 Presence of cardiac pacemaker; Z79.01 Long term (current) use of anticoagulants; Z95.2 Presence of prosthetic heart valve
CPT/HCPCS: 36415; 80048; 83880; 84439; 84443; 93005; 99212

== ENCOUNTER → 2024-08-14 23:59 | Outpatient (BNV) | payer MEDICARE, SELFPAY ==
[2023-01-10 09:41] VITALS: BP 104/52
--- NOTE | 2024-08-23 17:17 | MHC.OFFVIS ---
Intake Visit Reasons: Remote device check- [facility] Allergies No Known Allergies [No Known Allergies*] Allergy (Verified 08/23/24 10:51) [facility], LAT[facility] Medical History Chest pain Tubular adenoma of colon Atherosclerosis of both carotid arteries Aortic stenosis Exertional angina Paroxysmal atrial fibrillation Diabetes mellitus HTN (hypertension) Sick sinus syndrome (~2013) Cardiac pacemaker in situ (~2013) CAD (coronary artery disease) Surgical History Stented coronary artery History of cataract surgery History of tonsillectomy History of appendectomy History of right hip replacement History of cardioversion (~2014) History of left hip replacement (~1998) History of melanoma excision (~2011) History of colonoscopy (~2010) History of cardiac cath (~2017) History of right-sided carotid endarterectomy (~2000) History of pacemaker (~2013) Family History Father No problems noted. Mother Lung cancer Social History Alcohol intake: former Patient Tobacco Use Status: Former Tobacco user Tobacco use type: Cigarette Cigarette Packs Per Day: 1 Years Smoked: 50 Second Hand Smoke Exposure: No Office Procedures Cardiac Device Check Cardiac Device Check Details: Remote pacemaker report generated 08/14/2024. Frequent episodes of atrial fibrillation noted with total burden of 28%. Pacemaker function is normal [id number] Cardiac Device Interrogation, pacemaker Procedure code (CPT) selection complete Assessment & Plan Assessment & Plan (1) Cardiac pacemaker in situ: Onset Date: ~2013 Comment: ([facility] DCPP - placed 2013 for SSS; generator change 2022) Code(s): Z95.0 - Presence of cardiac pacemaker Category: Medical Plan: See above Coding Level of Care Code Procedure Only Diagnoses Cardiac pacemaker in situ Z95.0 CPT Codes Cardiac Device Check - Cardiac Device 12: [id number] Cardiac Device Interrogation, pacemaker ([id number])
== END ==
PROVIDERS: PCP Internal Medicine; Visit Provider Internal Medicine Cardiovascular Disease
DX: I48.91 Unspecified atrial fibrillation (principal); Z95.0 Presence of cardiac pacemaker
CPT/HCPCS: 93294

== ENCOUNTER 2024-08-23 10:27 | Emergency (ER) | payer MEDICARE, SELFPAY ==
[2023-01-10 09:41] VITALS: BP 104/52
--- NOTE | ~2024-08-23 | CT_ITS ---
EXAMINATION: CT LUMBAR SPINE WITHOUT CONTRAST CLINICAL INFORMATION: Multiple fall, lower extremity weakness. COMPARISON: 02/01/2017. TECHNIQUE: Spiral CT of the lumbar spine was performed in axial plane without IV contrast. Sagittal, coronal, and thin section axial reformatted images were constructed from the axial data set. This CT examination was performed using dose optimization techniques as appropriate, variously including the following: *Automated exposure control *Adjustment of mA and/or kV according to patient size (this includes techniques or standardized protocols for targeted exams where dose is matched to indication/reason for exam; i.e. extremities or head) *Use of iterative reconstruction technique FINDINGS: No definite acute fracture, compression deformity, or suspicious focal bone lesion identified. There is a mild levoconvex scoliosis centered at L4. There is a normal lumbar lordosis. Severe multilevel degenerative disc changes are present throughout, with relative sparing of L5-S1. There are prominent dorsal and right lateral bridging disc osteophytes most notable T12-L1, and L2-3. There is normal facet alignment. Multilevel degenerative arthritic facet changes are present, most significant spanning L3-S1. There are no pars defects. Sagittal alignment is anatomic without evidence of significant subluxation. 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 There is severe central canal stenosis at L3-4 secondary to disc bulging, congenital narrowing, and facet hypertrophic arthropathy. Sacrum is intact. There is partial ankylosis of the SI joints. Soft tissues demonstrate heavy calcification of the abdominal aorta with tortuosity, and an infrarenal mild fusiform dilatation measuring up to 2.7 cm maximally. No gross aneurysm present. There is bilateral nonspecific perirenal stranding, and bilateral hyperplasia of both adrenal glands. No hydronephrosis or hydroureter. There is minimal bladder wall thickening noted incidentally. This is incompletely imaged. There is severe atrophy of the right psoas muscle, and mild atrophy of the inferior paraspinous musculature. CT/CT lumbar spine wo IV con IMPRESSION: 1. No CT evidence of acute lumbar spine fracture or injury. 2. 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 Severe central canal stenosis at L3-4. 3. Heavy calcification and ectasia (maximal diameter 2.7 cm) of the abdominal aorta. No gross aneurysm. 4. Partial ankylosis of the SI joints. 5. Severe psoas atrophy on the right. Electronically signed by: Medardo Yun MD 08/23/2024 02:14 PM J[facility] MORALES
--- NOTE | ~2024-08-23 | CT_ITS ---
EXAMINATION: CT HEAD WITHOUT CONTRAST CLINICAL INFORMATION: fall, on eliquis COMPARISON: None available. TECHNIQUE: Contiguous axial imaging was performed from the skull base to vertex without intravenous administration of contrast. This CT examination was performed using dose optimization techniques as appropriate, variously including the following: *Automated exposure control *Adjustment of mA and/or kV according to patient size (this includes techniques or standardized protocols for targeted exams where dose is matched to indication/reason for exam; i.e. extremities or head) *Use of iterative reconstruction technique DLP: 803 mGy-cm FINDINGS: The bony calvarium is intact. The skull base is intact. No gross hematoma within the intraconal or extraconal compartments of the orbits There is a small tiny volume of extra-axial hyperdensity in the subarachnoid compartment of the medial frontal convex of the left greater than the right side without mass effect. No midline shift hydrocephalus or herniation. There is a 6 mm well-defined round hyperdensity within the third ventricle. There is prominence of the extra-axial CSF spaces cerebral sulci, ventricles and cerebellar folia likely related to volume loss. Bilateral multifocal patchy and confluent deep periventricular white matter hypodensities involving centrum semiovale and ayala radiata. 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 No gross masses in the sella or suprasellar region. Craniocervical junction is intact. Small retention cysts versus polyp in the right maxillary sinus. No air-fluid levels. Tympanic cavities and mastoid air cells are aerated. Calcified plaques in the cavernous and supracavernous segments both ICA. Punctate calcifications in the optic nerves discs, bilaterally.. CT/CT head/brain wo IV con IMPRESSION: Small volume acute subarachnoid hemorrhage frontal convexity without mass effect. 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 Optic disc drusen. Discussed with the emergency department physician assistant superintendent Mary Chadwick at 1:54 PM Electronically signed by: Ochoa Shrestha MD 08/23/2024 02:02 PM JERRY
--- NOTE | ~2024-08-23 | CT_ITS ---
EXAMINATION: CT CERVICAL SPINE WITHOUT CONTRAST CLINICAL INFORMATION: Status post fall. Pain. Patient on anticoagulation therapy. COMPARISON: None available. TECHNIQUE: Contiguous axial images through the cervical spine using 3 mm collimation with bone and soft tissue algorithm. Sagittal and coronal reformatted images acquired. This CT examination was performed using dose optimization techniques as appropriate, variously including the following: *Automated exposure control *Adjustment of mA and/or kV according to patient size (this includes techniques or standardized protocols for targeted exams where dose is matched to indication/reason for exam; i.e. extremities or head) *Use of iterative reconstruction technique. DLP: 353 mGy centimeter. FINDINGS: Craniocervical junction is intact. Degenerative changes in the periodontal C1 region. C1 is intact. C2 is intact. C3 is intact. C4 is intact. C5 is intact. C6 is intact. C7 is intact. Multilevel marginal osteophyte formation and syndesmophyte formation, C3 C7. Decreased intervertebral disc height at C6-7. There is a subtle grade 1 retrolisthesis at C5-6, likely degenerative. Grade 1 anterolisthesis C7-T1 likely degenerative. Bilateral facet joint hypertrophy C3 C7 with incomplete ankylosis at C3-4. No gross prevertebral compartment hematoma. Calcified plaques throughout the carotic artery systems, bilaterally. Calcifications of the nuchal ligament at C4-5 level. Tympanic cavities and mastoid air cells are aerated Electrode leads in the left subclavian region no fully included in the [id number]. Effervescent secretions in the vallecula and piriform sinuses.. CT/CT cervical spine wo IV con IMPRESSION: Multilevel cervical spondylosis without acute fracture or trauma-related listhesis. Fleischner guidelines were followed. Electronically signed by: Ochoa Shrestha MD 08/23/2024 01:44 PM EST
[2024-08-23 10:48] VITALS: BP 123/71; BP 125/78; PULSE 70; PULSE 72; RESP 16; TEMP 36.7; O2SAT 92; O2SAT 98; BMI 28.8
[2024-08-23 10:48] LABS: Glucose, Whole Blood 83 mg/dL (60-115)
[2024-08-23 10:52] VITALS: BP 123/71; PULSE 72; RESP 16; TEMP 36.7; O2SAT 92
--- NOTE | 2024-08-23 10:57 | PC.NURSE ---
Pt comes to ED today via EMS from home s/p mechanical fall last night and this AM. A&Ox3, VSS, afebrile. (+) C collar in place from EMS. Skin is warm and dry Speech is clear and concise. Breaths and speech are even and unlabored. Facial symmetry noted. L foot is partially wrapped with gauze wrap--Pt reports on going wound to this area that bleeds. Per Pt, Wound is being managed by PCP. Pt is resting quietly on stretcher, NAD noted.
--- NOTE | 2024-08-23 11:13 | ED.FALL ---
HPI - Fall General Chief Complaint: Fall Stated Complaint: MECHANICAL FALL Time Seen by Provider: 08/23/24 11:01 Source: patient and EMS Mode of arrival: EMS Limitations: altered mental status History of Present Illness ED Provider: Mary Chadwick NP HPI Narrative: Patient is an 89-year-old male who presents emergency department via EMS for evaluation. He reports to me that he has experienced 2 falls 1 last night and 1 this morning. When asked, it is little difficult for him to get a clear understanding but ultimately states that he had a fall in the garage yesterday appears as though he may have missed a step, but evidently he heard his neighbor/male woman in called to her for help and she had another neighbor, who helped him to get into the house. He states that today, ?they were banging on the door? I tried to get there but when I turned around I hit the chair, I did not fall onto the ground I landed into the chair but I could not get up afterwards. He states that he has been having ongoing weakness to the bilateral lower extremities ever since he had a fall approximately 6 months ago where he landed onto his right hip, reports that he was evaluated afterwards but does not believe there was any known injury. He is anticoagulated on Eliquis. He denies that he struck his head with either of these falls and denies any loss of consciousness. During the time of my evaluation it has become apparent to me that he is a poor historian, and his cousin who presented at bedside; Maximilian, the patient could identify he was his cousin but could not provide me with his name. Regions informs me that he has been having ongoing weakness to the bilateral legs for the past 6 months or so and has been confused over the past week. He in fact tells me as well that he has had more than 2 falls that the patient initially had described, at least 3 or 4, and the circumstances surrounding the fall are unclear. Today his sister was attempting to contact him, who is evidently his next of kin; Betzy Vargas who resides in [place], when she could not make contact with him she sent Maximilian to the house where he was found on the floor. Evidently he had an appointment scheduled with his primary care today as a physical but had plan to discuss his ongoing weakness legs. Maximilian states that the patient does live alone, however the house is quite cluttered, and not very well kempt as he was unable to get around very well despite using a cane/ ?walker (as per the patient's account). Related Data Home Medications ?Medication ?Instructions ?Recorded ?Confirmed atorvastatin 40 mg tablet 40 mg PO BEDTIME 12/31/20 08/12/24 glipizide 2.5 mg tablet, extended 2.5 mg PO DAILY 12/31/20 08/12/24 release 24 hr nitroglycerin 0.4 mg sublingual 0.4 mg sublingual TID PRN angina 12/31/20 08/12/24 tablet levothyroxine 50 mcg tablet 50 mcg PO DAILY 01/10/23 08/12/24 levothyroxine 50 mcg tablet 25 mcg PO MOFR 03/19/24 08/12/24 (Synthroid) Previous Rx's ?Medication ?Instructions ?Recorded apixaban 5 mg tablet (Eliquis) 5 mg PO BID 90 days #180 tabs 12/14/23 clopidogrel 75 mg tablet 75 mg PO DAILY 90 days #90 tabs 12/14/23 lisinopril 2.5 mg tablet 2.5 mg PO DAILY 30 days #30 tabs 12/28/23 metoprolol tartrate 50 mg tablet 50 mg PO BID #30 tabs 06/04/24 amiodarone 200 mg tablet 200 mg PO DAILY #90 tabs 07/16/24 bumetanide 1 mg tablet 1 mg PO BID #60 tabs 08/13/24 Allergies Allergy/AdvReac Type Severity Reaction Status Date / Time No Known Allergies Allergy Verified 08/23/24 10:51 [No Known Allergies*] Review of Systems Review of Systems: Yes all other systems are reviewed and are negative [facility] Past Medical History Attestation statement: The following information was validated with the patient. Source: old records reviewed Medical History Chest pain Tubular adenoma of colon Atherosclerosis of both carotid arteries Aortic stenosis Exertional angina Paroxysmal atrial fibrillation Diabetes mellitus HTN (hypertension) Sick sinus syndrome (~2013) Cardiac pacemaker in situ (~2013) CAD (coronary artery disease) Surgical History Stented coronary artery History of cataract surgery History of tonsillectomy History of appendectomy History of right hip replacement History of cardioversion (~2014) History of left hip replacement (~1998) History of melanoma excision (~2011) History of colonoscopy (~2010) History of cardiac cath (~2017) History of right-sided carotid endarterectomy (~2000) History of pacemaker (~2013) Family History Family History Father No problems noted. Mother Lung cancer Social History Social History Alcohol intake: former Patient Tobacco Use Status: Former Tobacco user Tobacco use type: Cigarette Cigarette Packs Per Day: 1 Years Smoked: 50 Second Hand Smoke Exposure: No Physical Exam Vital Signs: Vital Signs: Last Vital Signs Temp 98.5 F 08/23/24 15:26 Pulse 71 08/23/24 15:26 Resp 16 08/23/24 15:26 BP 129/69 08/23/24 15:26 Pulse Ox 99 08/23/24 15:26 O2 Del Method Room Air 08/23/24 15:26 BMI result Body Mass Index 28.8 Appearance: Alert.?Oriented to person, place, disoriented to time and event. No acute distress.?Normal affect. Head: Normocephalic Eyes: Pupils equal, round and reactive to light. EOMI. Conjunctiva and sclera normal? No Gamez sign noted. No raccoon eyes noted ENT: No septal hematoma, nares patent bilaterally. External auditory canal normal tympanic membrane pearly drummond and intact bilaterally. Dentition normal, no fractured teeth. No lesions or lacerations of oropharynx. Uvula midline. Moist mucous membranes. Neck: Normal inspection.? Neck supple.??No palpable tenderness, step-off, deformities. CVS: Heart sounds normal. Normal heart rate and rhythm.? Pulses normal.?? Respiratory: No respiratory distress.? Lung sounds clear to auscultation bilaterally?? Abdomen: Soft and non-tender. Normoactive bowel sounds. ?? Skin: Skin warm and dry.? Normal skin color.? Extremities: Bilateral lower extremities are very cool to the touch? with Bubar bilaterally and dermatitis, unable to palpate DP/PT pulse however positive Doppler signal bilaterally Neuro: Moves all extremities spontaneously. Sensation intact bilaterally. No focal neuro deficits. NIH Stroke Scale Internal: Initial- Upon Arrival Level of Consciousness: Alert Level of Consciousness Questions: Answers both questions correctly Level of Consciousness Commands: Performs both tasks correctly Best Gaze: Normal Visual: No visual loss Facial Palsy: Normal Motor Arm (Right): No drift Motor Arm (Left): No drift Motor Leg (Right): No drift Motor Leg (Left): No drift Limb Ataxia: Absent Sensory: Normal Best Language: No aphasia Dysarthia: Normal Extinction and Inattention: No abnormality Score: 0 Course Reevaluation(s) Reevaluation #1: Received call from Radiology regarding findings on CT head there is concern for a small subarachnoid hemorrhage in the frontal convexity on the left possibly the right as well without any midline shift, in addition there is a benign lesion described as a 6 mm well-defined round hyperdensity of the 3rd ventricle which by radiologist in impression may eventually impede circulation of the CSF and warrants neurosurgery evaluation. 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 Transferring images to [facility] in placing call out for transfer of care CBC is without leukocytosis, has a mild chronic stable anemia not meeting transfusion criteria, mild thrombocytopenia. No electrolyte derangement. Has an HANS with BUN of 49, creatinine 2.04. Total bilirubin of 2.2 with AST 165 and ALT of 83, additionally has a INR of 3.1, anticoagulated on Eliquis not on warfarin. His abdominal examination is benign, he is without jaundice, denies recent nausea or vomiting. CK is elevated at 774. Initial troponin of 37 EKG showing a ventricular paced rhythm with rate of 70, QTC 534. BNP of 1357 notably increased from baseline previously 530 and below. No he did have outpatient labs and 08/12/2024 which revealed a BNP at that time of 918. COLLINS is negative, non detectable alcohol level. Viral serologies negative. Time: 14:00 Reevaluation #2: Patient has been accepted for ED to ED transfer as a trauma consult with the accepting physician Dr. Burton to [facility]. Patient made aware of these findings. I will contact his next of kin; his sister and make her aware Time: 14:29 Medical Decision Making Medical Decision Making MDM Narrative: Patient is an 89-year-old male with past medical history of CAD, aortic stenosis s/p TAVR, heart failure preserved EF unspecified diastolic CHF, atherosclerosis bilateral carotid arteries, atrial fibrillation on Eliquis, history of sick sinus syndrome s/p pacemaker in 2014, diabetes, hypertension who presents emergency department for evaluation with multiple falls in the recent past and new onset of confusion over the past week as per family, generalized weakness the bilateral lower extremities for the past 6 months ever since a fall. GCS of 14 due to confusion. He gives a quite convoluted story of how these reportedly mechanical falls have occurred, I am not convinced that he is the greatest historian in regards to this in addition he could not tell me his cousin's name who presented at bedside which as per his account this is new confusion over the past week. Obtaining CT of the head and cervical spine to exclude ICH, SDH, skull fracture, cervical spine fracture cervical spine subluxation, in addition will also obtain CT of the lumbar spine given his progressive weakness of the bilateral lower extremities which has reportedly been over the past 6 months ever since a fall, it is unclear to me what workup he may have received or where he was evaluated after this fall. Decreased AROM to the bilateral hips, obtaining XR of the hip/pelvis. He appears to have findings of the lower extremities to myself concerning for peripheral artery disease they are cool to the touch with rubor and dermatitis, unable to palpate pulses over Doppler signal is present bilaterally for DP/PT. Does not have pain upon palpation or no calf tenderness. Will obtain CBC to evaluate for leukocytosis/ anemia, CMP and lipase to evaluate for abnormal electrolytes /abnormal renal function/ abnormal hepatic/biliary function, EKG and troponin to evaluate for ischemia/ACS. Chest x-ray to evaluate for consolidation/ infiltrate/ mass/ pulmonary congestion and Urinalysis in addition to viral serologies. Obtaining CPK as it is unclear how long he may have been on the ground for. Orally he has not noted to be hypothermic however given the coolness to his extremities though this may be secondary to his circulation will obtain rectal temperature to ensure no hypothermia. According to Maximilian, patient's cousin who lives locally and may be contacted at [phone], his next of kin would be his sister Betzy Vargas who resides in [place] with a home phone of , and cell phone . Differential Diagnosis Differential Diagnoses: The differential diagnosis associated with the presentation includes (See narrative above) Admission/Observation Consideration of admission/observation: Escalation of care including admission/observation considered (See narrative above and course narrative for further detail) Lab Data MDM Lab Attestation statement: I reviewed the patient's lab results. 08/23/24 12:05 08/23/24 13:03 Labs: Lab Results 08/23/24 08/23/24 08/23/24 Range/Units 10:45 12:05 12:15 WBC 7.0 (4.8-10.8) X10*3/uL RBC 3.97 L (4.60-5.80) X10*6/uL Hgb 12.7 L (14.0-18.0) g/dl Hct 39.2 L (42.0-52.0) % MCV 98.7 H (80.0-98.0) fL MCH 32.0 (27.0-33.0) pg MCHC 32.4 (31.0-36.0) g/dl RDW 18.1 H (11.0-16.0) % Plt Count 149 L (160-400) X10*3/uL MPV 10.2 (9.4-12.4) fL Immature Gran % (Auto) 0.4 (0.0-0.4) % Neut % (Auto) 75.9 H (45-73) % Lymph % (Auto) 10.1 L (20-40) % [place] % (Auto) 12.4 H (2-11) % Eos % (Auto) 0.6 (0-4) % Baso % (Auto) 0.6 (0-2) % Lymph # (Auto) 0.7 L (1.2-4.9) X10*3/uL [place] # (Auto) 0.9 (0.1-1.2) X10*3/uL Eos # (Auto) 0.0 (0.0-0.4) X10*3/uL Baso # (Auto) 0.0 (0.0-0.2) X10*3/uL Abs Immat Gran (auto) 0.03 (0.00-0.03) X10*3/uL Absolute Neuts (auto) 5.3 (2.0-8.3) x10*3/uL Absolute Nucleated RBC 0.000 (0.0-0.012) X10*3/uL Nucleated RBC % (auto) 0.0 (0.0-0.2) /100WBC PT 36.5 H (10.9-12.4) SEC INR 3.1 H (0.9-1.1) Sodium Cancelled Potassium Cancelled Chloride Cancelled Carbon Dioxide Cancelled Anion Gap Cancelled BUN Cancelled Creatinine Cancelled Estim Creat Clear Calc Cancelled Estimated GFR Cancelled POC Glucose 83 (60-115) mg/dL Random Glucose Cancelled Calcium Cancelled Total Bilirubin Cancelled Direct Bilirubin (0.0-0.5) mg/dL AST Cancelled ALT Cancelled Alkaline Phosphatase Cancelled Total Creatine Kinase (38-174) U/L Troponin I High Sens 37.0 H D (<3.5-35.0) ng/L B-Natriuretic Peptide 1357 H (<100) pg/mL Total Protein Cancelled Albumin Cancelled Urine Color Yellow Urine Appearance Clear Urine pH 5.0 (5.0-9.0) Ur Specific [place] 1.015 (1.005-1.025) Urine Protein Trace (Neg-Trace) mg/dL Urine Glucose (UA) Negative (Negative) mg/dL Urine Ketones Negative (Negative) mg/dL Urine Blood Negative (Negative) Urine Nitrite Negative (Negative) Ur Leukocyte Esterase Negative (Negative) Urine Opiates Screen Not Detected (Not Detect) Ur Buprenorphine Scrn Not Detected (Not Detect) ng/mL Ur Oxycodone Screen Not Detected (Not Detect) ng/mL Urine Methadone Screen Not Detected (Not Detect) ng/mL Urine Fentanyl Screen Not Detected (Not Detect) Ur Barbiturates Screen Not Detected (Not Detect) Ur Phencyclidine Scrn Not Detected (Not Detect) Ur Amphetamines Screen Not Detected (Not Detect) U Benzodiazepines Scrn Not Detected (Not Detect) Urine Cocaine Screen Not Detected (Not Detect) U Marijuana (THC) Screen Not Detected (Not Detect) Ethyl Alcohol Cancelled Influenza Type A (PCR) NEGATIVE (Negative) Influenza Type B (PCR) NEGATIVE (Negative) RSV RNA Qual (PCR) NEGATIVE (Negative) SARS-CoV-2 RNA (RT-PCR) NEGATIVE (Negative) 08/23/24 Range/Units 13:03 WBC (4.8-10.8) X10*3/uL RBC (4.60-5.80) X10*6/uL Hgb (14.0-18.0) g/dl Hct (42.0-52.0) % MCV (80.0-98.0) fL MCH (27.0-33.0) pg MCHC (31.0-36.0) g/dl RDW (11.0-16.0) % Plt Count (160-400) X10*3/uL MPV (9.4-12.4) fL Immature Gran % (Auto) (0.0-0.4) % Neut % (Auto) (45-73) % Lymph % (Auto) (20-40) % [place] % (Auto) (2-11) % Eos % (Auto) (0-4) % Baso % (Auto) (0-2) % Lymph # (Auto) (1.2-4.9) X10*3/uL [place] # (Auto) (0.1-1.2) X10*3/uL Eos # (Auto) (0.0-0.4) X10*3/uL Baso # (Auto) (0.0-0.2) X10*3/uL Abs Immat Gran (auto) (0.00-0.03) X10*3/uL Absolute Neuts (auto) (2.0-8.3) x10*3/uL Absolute Nucleated RBC (0.0-0.012) X10*3/uL Nucleated RBC % (auto) (0.0-0.2) /100WBC PT (10.9-12.4) SEC INR (0.9-1.1) Sodium 143 Potassium 4.3 Chloride 103 Carbon Dioxide 32 H Anion Gap 12 BUN 49 H Creatinine 2.04 H Estim Creat Clear Calc 30.6 Estimated GFR 31 POC Glucose (60-115) mg/dL Random Glucose 85 Calcium 9.3 Total Bilirubin 2.2 H Direct Bilirubin 1.0 H (0.0-0.5) mg/dL AST 165 H ALT 83 H Alkaline Phosphatase 109 Total Creatine Kinase 774 H (38-174) U/L Troponin I High Sens (<3.5-35.0) ng/L B-Natriuretic Peptide (<100) pg/mL Total Protein 6.6 Albumin 3.6 Urine Color Urine Appearance Urine pH (5.0-9.0) Ur Specific [place] (1.005-1.025) Urine Protein (Neg-Trace) mg/dL Urine Glucose (UA) (Negative) mg/dL Urine Ketones (Negative) mg/dL Urine Blood (Negative) Urine Nitrite (Negative) Ur Leukocyte Esterase (Negative) Urine Opiates Screen (Not Detect) Ur Buprenorphine Scrn (Not Detect) ng/mL Ur Oxycodone Screen (Not Detect) ng/mL Urine Methadone Screen (Not Detect) ng/mL Urine Fentanyl Screen (Not Detect) Ur Barbiturates Screen (Not Detect) Ur Phencyclidine Scrn (Not Detect) Ur Amphetamines Screen (Not Detect) U Benzodiazepines Scrn (Not Detect) Urine Cocaine Screen (Not Detect) U Marijuana (THC) Screen (Not Detect) Ethyl Alcohol < 10 Influenza Type A (PCR) (Negative) Influenza Type B (PCR) (Negative) RSV RNA Qual (PCR) (Negative) SARS-CoV-2 RNA (RT-PCR) (Negative) Independent Interpretation I performed an independent interpretation of an: CT Scan (L frontal SAH) Radiology Impression Discussion of test interpretation with radiology: I have reviewed the radiologist's reading. Radiologist Impression: CT/CT head/brain wo IV con IMPRESSION: Small volume acute subarachnoid hemorrhage frontal convexity without mass effect. 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 Optic disc drusen. CT/CT cervical spine wo IV con IMPRESSION: Multilevel cervical spondylosis without acute fracture or trauma-related listhesis. CT/CT lumbar spine wo IV con IMPRESSION: 1. No CT evidence of acute lumbar spine fracture or injury. 2. 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 Severe central canal stenosis at L3-4. 3. Heavy calcification and ectasia (maximal diameter 2.7 cm) of the abdominal aorta. No gross aneurysm. 4. Partial ankylosis of the SI joints. 5. Severe psoas atrophy on the right. Independent Historian Clinical information obtained from an independent historian. History obtained from or confirmed by: EMS and Other (See HPI) External Record Review External record reviewed: Outpatient record Chronic Conditions Patient?s care impacted by: Other (See narrative above) Critical Care Time Critical Care Time Critical Care Time: Yes Total Critical Care Time: 45 Attestation: I personally attest to this critical care time spent taking care of the patient exclusive of all other billable procedures was approximately 45 minutes including initial evaluation of patient, ordering tests, CT interpretation, EKG interpretation, medical consultation, documentation, re-evaluation. Discharge Plan Discharge Clinical Impression: Subarachnoid hemorrhage, Acute exacerbation of CHF (congestive heart failure), Elevated INR, Transaminitis, HANS (acute kidney injury), Lumbar canal stenosis Patient Disposition: er [facility] Transfer Details: [facility]; ED to ED Trauma Consult Prescriptions: No Action Eliquis 5 mg tablet 5 mg PO BID 90 Days Qty: 180 3RF clopidogrel 75 mg tablet 75 mg PO DAILY 90 Days Qty: 90 3RF lisinopril 2.5 mg tablet 2.5 mg PO DAILY 30 Days Qty: 30 3RF Rx Instructions: NEW DOSE - 2.5 MG TABLET metoprolol tartrate 50 mg tablet 50 mg PO BID Qty: 30 0RF amiodarone 200 mg tablet 200 mg PO DAILY Qty: 90 3RF bumetanide 1 mg tablet 1 mg PO BID Qty: 60 1RF Rx Instructions: stop lasix - start Bumex levothyroxine [Synthroid] 50 mcg tablet 25 mcg PO MOFR atorvastatin 40 mg tablet 40 mg PO BEDTIME glipizide 2.5 mg tablet extended release 24hr 2.5 mg PO DAILY nitroglycerin 0.4 mg tablet, sublingual 0.4 mg sublingual TID PRN (Reason: angina) levothyroxine 50 mcg tablet 50 mcg PO DAILY Rx Instructions: extra 1/2 twice a week Referrals: Jonathon Walden MD [Primary Care Provider] - Interventions: Acute Care Transfer Worksheet (ED) Last Done: 08/23/24 15:26 Discharge Date/Time: 08/23/24 14:57 Print Language: Turkish
--- NOTE | 2024-08-23 11:30 | ECG_ITS ---
Test Reason : FALL/WEAKNESS Blood Pressure : */* mmHG Vent. Rate : 70 BPM Atrial Rate : 47 BPM P-R Int : * ms QRS Dur : 184 ms QT Int : 496 ms P-R-T Axes : * -73 108 degrees QTcB Int : 535 ms Ventricular-paced rhythm Abnormal ECG When compared with ECG of 19-Mar-2024 09:31, Vent. rate has decreased by 28 bpm Referred By: Mary Chadwick Electronically Signed By: NICOLE POLANCO MD
[2024-08-23 12:10] LABS: MANUAL DIFF FLAG NO
[2024-08-23 12:13] LABS: Basophils Percent Auto 0.6 % (0-2); Eosinophils Percent Auto 0.6 % (0-4); Hematocrit 39.2 % (42.0-52.0); Hemoglobin 12.7 g/dl (14.0-18.0); Imm Gran Abs Auto 0.03 X10*3/uL (0.00-0.03); Imm Gran Pct Auto 0.4 % (0.0-0.4); Lymphocytes Absolute Auto 0.7 X10*3/uL (1.2-4.9); Lymphocytes Percent Auto 10.1 % (20-40); Mean Corpuscular HGB Conc 32.4 g/dl (31.0-36.0); Mean Corpuscular Volume 98.7 fL (80.0-98.0); Mean Platelet Volume 10.2 fL (9.4-12.4); Monocytes Absolute Auto 0.9 X10*3/uL (0.1-1.2); Monocytes Percent Auto 12.4 % (2-11); Neutrophils Absolute Auto 5.3 x10*3/uL (2.0-8.3); Neutrophils Percent Auto 75.9 % (45-73); Platelet Count 149 X10*3/uL (160-400); Red Blood Count 3.97 X10*6/uL (4.60-5.80); Red Cell Distribution Width 18.1 % (11.0-16.0)
[2024-08-23 12:16] VITALS: TEMP 36.9
[2024-08-23 12:18] LABS: INTERNATIONAL NORM RATIO 3.1 (0.9-1.1); Prothrombin Time 36.5 SEC (10.9-12.4)
[2024-08-23 12:23] LABS: Appearance Urine Clear; Color Urine Yellow; Glucose Urine UA Negative (Negative); Leukocyte Esterase Urine Negative (Negative); Nitrite Urine Negative (Negative); Specific Gravity - Urine 1.015 (1.005-1.025); Urine Blood Negative (Negative); Urine Ketones Negative (Negative); Urine Protein Trace mg/dL (Neg-Trace)
[2024-08-23 12:31] LABS: B Type Natriuretic Peptide 1357 pg/mL (<100)
[2024-08-23 12:32] LABS: Amphetamine Screen Urine Not Detected (Not Detect); Barbiturates, Urine Not Detected (Not Detect); Benzodiazepines Screen Urine Not Detected (Not Detect); Buprenorphine Scr Not Detected (Not Detect); Cannabinoid Screen Urine Not Detected (Not Detect); Cocaine Screen Urine Not Detected (Not Detect); Fentanyl, urine Not Detected (Not Detect); Methadone Screen, Urine Not Detected (Not Detect); Opiate Screen Urine Not Detected (Not Detect); Oxycodone Screen Urine Not Detected (Not Detect); Phencyclidine Screen Urine Not Detected (Not Detect)
[2024-08-23 12:48] LABS: Influenza A PCR NEGATIVE (Negative); Influenza B PCR NEGATIVE (Negative); Resp Syncy Virus RNA Qual PCR NEGATIVE (Negative); SARS COV2 PCR INHOUSE NEGATIVE (Negative)
[2024-08-23 13:37] LABS: Albumin Level 3.6 g/dL (3.5-5.0); Alkaline Phosphatase 109 U/L (39-117); Anion Gap 12 (12-20); Aspartate Amino Transferase 165 U/L (5-37); Bilirubin Total 2.2 mg/dL (0.0-1.0); Blood Urea Nitrogen 49 mg/dL (9-16); Calcium 9.3 mg/dL (8.4-10.2); Carbon Dioxide 32 mmol/L (22-29); Chloride 103 mmol/L (96-108); Creatinine Clr Calc Pharmacy 30.6; Estimated Glomerular Filt Rate 31; Ethanol < 10 mg/dL; Glucose Random 85 mg/dL (60-115); Potassium 4.3 mmol/L (3.3-5.1); Sodium 143 mmol/L (135-145); Total Protein 6.6 g/dL (6.5-8.0)
[2024-08-23 13:57] LABS: Alanine Aminotransferase 83 U/L (0-40)
[2024-08-23 14:17] VITALS: BP 129/69; PULSE 71; RESP 16; O2SAT 99
--- NOTE | 2024-08-23 14:43 | PC.NURSE ---
Per ED provider, Pt will be transported to [facility] ED for trauma consult. This RN makes an attempt to completed RN to RN report. Call placed to [phone], prompts followed and no answer. This RN allowed the phone to ring for approx. 2:26 with no answer Will attempt to call in the near future.
--- NOTE | 2024-08-23 14:56 | PC.NURSE ---
Call placed to [facility] ED for RN to RN report for transport. Spoke with PITA Gaytan. Comprehensive report given and Lucila given the opportunity for questions--all questions answered to satisfaction. [facility] present at this time. Report given for transport. Care of Pt relinquished to [facility].
[2024-08-23 15:26] VITALS: BP 129/69; PULSE 71; RESP 16; TEMP 36.9; O2SAT 99
== END 2024-08-23 14:57 | disposition short-term general hospital (02) ==
PROVIDERS: Nurse Practitioner Family; Emergency Provider Emergency Medicine; PCP Internal Medicine
DX: S06.6X0A Traumatic subarachnoid hemorrhage without loss of consciousness, initial encounter (principal); W01.190A Fall on same level from slipping, tripping and stumbling with subsequent striking against furniture, initial encounter; I11.0 Hypertensive heart disease with heart failure; I50.9 Heart failure, unspecified; N17.9 Acute kidney failure, unspecified; M48.061 Spinal stenosis, lumbar region without neurogenic claudication; M45.8 Ankylosing spondylitis sacral and sacrococcygeal region; M48.8X6 Other specified spondylopathies, lumbar region; R79.1 Abnormal coagulation profile; R74.01 Elevation of levels of liver transaminase levels; R53.1 Weakness; R29.6 Repeated falls; Z91.81 History of falling; R29.700 NIHSS score 0; E11.9 Type 2 diabetes mellitus without complications; I48.0 Paroxysmal atrial fibrillation; Z79.01 Long term (current) use of anticoagulants; Z79.899 Other long term (current) drug therapy; Z87.891 Personal history of nicotine dependence; Y93.89 Activity, other specified; Y92.019 Unspecified place in single-family (private) house as the place of occurrence of the external cause; Y99.9 Unspecified external cause status; Z03.818 Encounter for observation for suspected exposure to other biological agents ruled out
CPT/HCPCS: 0241U; 36415; 70450; 72125; 72131; 80053; 80307; 81003; 82248; 82550; 82947; 83880; 84484; 85025; 85610; 93005; 99284; 99285

== ENCOUNTER → 2024-08-23 11:14 | Outpatient (BNV) | payer MEDICARE, SELFPAY ==
[2023-01-10 09:41] VITALS: BP 104/52
== END ==
PROVIDERS: Emergency Provider Emergency Medicine; PCP Internal Medicine; Visit Provider Radiology Diagnostic Radiology
DX: M62.81 Muscle weakness (generalized) (principal)
CPT/HCPCS: 70450; 72125; 72131

== ENCOUNTER → 2024-08-23 11:30 | Outpatient (BNV) | payer MEDICARE, SELFPAY ==
[2023-01-10 09:41] VITALS: BP 104/52
== END ==
PROVIDERS: Emergency Provider Emergency Medicine; PCP Internal Medicine; Visit Provider Internal Medicine Cardiovascular Disease
DX: R53.1 Weakness (principal)
CPT/HCPCS: 93010